=== PATIENT | male | born 1955 | race Hispanic/Latino ===

== ENCOUNTER 2016-08-07 15:25 | Inpatient (IN) | payer MEDICARE ==
[~2016-08-07 15:25] MED LIST: ANCEF/STERILE WATER 2 GM/20 ML 2 GM/20 ML SYRINGE IV ONE; CATHFLO 20 MG in NACL 0.9% 500 ML 500 ML EKOSDLUMEN SCH; HEPARIN/ 0.45% NACL-25,000 UNIT/500 ML 25,000 UNIT/500 ML BAG SHEATH SCH; HEPARIN/NS 5000 UNIT/500ML(CATH LAB) 1,000 ML IR ONE; MORPHINE IV PRN; NACL 0.9% 1000 ML 1,000 ML EKOSCLUMEN SCH; NACL 0.9% 1000 ML 1,000 ML IV SCH; NACL 0.9% 1000 ML 1,000 ML SHEATH SCH; ZOFRAN IV PRN
[2016-08-07 15:51] LABS: Basophils % (Auto) 0.7 % (0.0-1.8); Eosinophils % (Auto) 8.6 % (0.0-4.3); Hemoglobin 13.8 gm/dl (11.8-15.2); Mean Corpuscular HGB Conc 32 % (32-34); Mean Corpuscular Hemoglobin 30 pg (28-32); Mean Corpuscular Volume 94 fl (84-94); Platelet Count 258 K/mm3 (140-440); Red Blood Count 4.57 M/mm3 (3.65-5.03); Red Cell Distribution Width 17.1 % (13.2-15.2); White Blood Count 10.7 K/mm3 (4.5-11.0)
[2016-08-07] MEDS: SUBLIMAZE ONE ×3 (16:00→16:40)
[2016-08-07] MEDS: XYLOCAINE 2% INFILTRATI ONE (16:00)
[2016-08-07] MEDS: VERSED ONE ×3 (16:00→16:40)
[2016-08-07 16:03] LABS: Fibrinogen 290 mg/dl (211-480); INR 1.05 (0.87-1.13)
[2016-08-07] MEDS ORDERED: WATER FOR INJ (PF) 10 ML ONE (16:07)
[2016-08-07 16:17] LABS: Partial Thromboplastin Time < 20.0 Sec. (24.2-36.6)
[2016-08-07] MEDS: CATHFLO ONE ×2 (16:28→16:37)
[2016-08-07] MEDS: HEPARIN 10,000 UNITS/10 ML ONE ×2 (16:28→16:37)
--- NOTE | 2016-08-07 17:03 | Operative Report ---
Operative Report Operative Report: Procedure: 1. Left lower extremity angiography 2. Left SFA to posterior tibial artery EKOS catheter placement. Physician: Stella Zhou MD Date of procedure: 08/07/2016 Indication: This is a 61-year-old male presenting with symptoms of left leg claudication, which had become markedly increased within the last few weeks. Outpatient revascularization was attempted, demonstrating complete occlusion of the mid SFA , with reconstitution in the mid calf via the PT and a tea. During the procedure, a significant amount of clot burden was visualized within the popliteal artery and PTT. As such, the patient was transferred to the hospital for TPA infusion catheter placement. Procedure: The patient was placed in the supine position and prepped and draped in the usual sterile fashion. A timeout was performed. The indwelling Alsey Blazer catheter was removed. Arteriography of the SFA, popliteal artery, tibial peroneal trunk, and posterior tibial artery was performed via the indwelling 6 Colombian sheath. The approximate length of the effected area was measured. A 50 cm EKos catheter was placed in the usual fashion from the SFA to the mid PT. The sheath was the secured to the skin with 2-0 Ethilon. Sterile dressings were placed, and the patient was transported to the critical care unit for infusion. Findings: Limited angiography of the left lower extremity demonstrates occlusion of the mid superficial femoral artery on the left. However, there is now faint opacification of the popliteal artery, which represents an improvement in comparison to images taken earlier today in the outpatient setting. The micro- sonic catheter spans the left SFA to mid PT. The patient will return to the geotechnical laboratory technician tomorrow for further imaging and treatment.
[2016-08-07] MEDS ORDERED: MORPHINE ONE (17:17)
[2016-08-07] MEDS: MORPHINE IV PRN ×2 (17:22→20:53)
[2016-08-07] MEDS ORDERED: NORCO 5/325 ONE (19:31)
[2016-08-07] MEDS: NORCO 5/325 PO PRN (19:37)
[2016-08-07] MEDS: NEURONTIN PO SCH ×2 (19:39→21:59)
[2016-08-07 21:52] LABS: Basophils % (Auto) 0.4 % (0.0-1.8); Eosinophils % (Auto) 5.3 % (0.0-4.3); Hemoglobin 13.8 gm/dl (11.8-15.2); Mean Corpuscular HGB Conc 32 % (32-34); Mean Corpuscular Hemoglobin 30 pg (28-32); Mean Corpuscular Volume 94 fl (84-94); Platelet Count 249 K/mm3 (140-440); Red Blood Count 4.56 M/mm3 (3.65-5.03); Red Cell Distribution Width 17.2 % (13.2-15.2); White Blood Count 14.2 K/mm3 (4.5-11.0)
[2016-08-07 22:05] LABS: Anion Gap 17 mmol/L; BUN/Creatinine Ratio 21.81; Blood Urea Nitrogen 24 mg/dL (9-20); Calcium 8.4 mg/dL (8.4-10.2); Carbon Dioxide 23 mmol/L (22-30); Chloride 103.3 mmol/L (98-107); Glucose 95 mg/dL (75-100); Potassium 4.5 mmol/L (3.6-5.0); Sodium 139 mmol/L (137-145)
[2016-08-07] MEDS: DILAUDID IV PRN (22:25)
[2016-08-08] MEDS ORDERED: NACL 0.9% IR ONE (01:17)
[2016-08-08 05:00] LABS: Anion Gap 14 mmol/L; Blood Urea Nitrogen 22 mg/dL (9-20); Calcium 8.1 mg/dL (8.4-10.2); Carbon Dioxide 22 mmol/L (22-30); Chloride 105.4 mmol/L (98-107); Glucose 122 mg/dL (75-100); Potassium 4.6 mmol/L (3.6-5.0); Sodium 137 mmol/L (137-145)
[2016-08-08] MEDS: DILAUDID IV PRN ×2 (05:09→09:00)
[2016-08-08 05:15] LABS: Basophils % (Auto) 0.6 % (0.0-1.8); Eosinophils % (Auto) 3.1 % (0.0-4.3); Hematocrit 39.8 % (35.5-45.6); Hemoglobin 12.9 gm/dl (11.8-15.2); Mean Corpuscular HGB Conc 32 % (32-34); Mean Corpuscular Hemoglobin 30 pg (28-32); Mean Corpuscular Volume 92 fl (84-94); Platelet Count 187 K/mm3 (140-440); Red Blood Count 4.33 M/mm3 (3.65-5.03); Red Cell Distribution Width 16.8 % (13.2-15.2); White Blood Count 14.8 K/mm3 (4.5-11.0)
[2016-08-08 07:33] LABS: Basophils % (Auto) 0.7 % (0.0-1.8); Hemoglobin 12.1 gm/dl (11.8-15.2); Mean Corpuscular HGB Conc 32 % (32-34); Mean Corpuscular Hemoglobin 30 pg (28-32); Mean Corpuscular Volume 94 fl (84-94); Platelet Count 174 K/mm3 (140-440); Red Blood Count 4.03 M/mm3 (3.65-5.03); Red Cell Distribution Width 17.3 % (13.2-15.2); White Blood Count 15.2 K/mm3 (4.5-11.0)
[2016-08-08 07:42] LABS: Fibrinogen 189 mg/dl (211-480)
--- NOTE | 2016-08-08 08:52 | Admit Criteria Form ---
Admission Criteria Documentation: VASCULAR DISEASE GRG Clinical Indications for Admission to Inpatient Care (Place 'X' for any and all applicable criteria): Hospital admission is needed for appropriate care of the patient because of ANY ONE of the following (1)(2)(3)(4): [ ]I. Life-threatening or limb-threatening skin ulcer as indicated by ANY ONE of the following(5): [ ]a) Surrounding cellulitis unresponsive to outpatient treatment [ ]b) Wet gangrene [ ]c) Lymphangitis [ ]d) Bacteremia [ ]II. Gangrene requiring intensity and frequency of care not manageable to outpatient, emergency, or observation level of care(5) [ ]III. Severe pain requiring acute inpatient management [ ]IV. Interventional revascularization (eg, surgery, thrombolysis) needed (eg , critical limb ischemia)(21) [ ]V. Urgent inpatient IV anticoagulation needed due to ALL of the following: [ ]a) Temporary subtherapeutic anticoagulation unacceptable because of high risk of short-term venous or arterial thromboembolism due to ANY ONE of the following(7)(8)(9): [ ]i) Venous thromboembolism within the past 12 months [ ]ii) Underlying malignancy [ ]iii) Patient with mechanical cardiac valve(10)(11) [ ]iv) Underlying hypercoagulable state (eg, protein C or protein S deficiency, antithrombin deficiency, antiphospholipid antibodies) [ ]v) Patient at high risk of thromboembolism (eg, status post orthopedic surgery, history of recurrent venous thromboembolism) [ ]vi) Atrial fibrillation with rheumatic valvular heart disease [ ]vii) Atrial fibrillation with 3 or MORE of the following : [ ]1) Congestive heart failure [ ]2) Hypertension [ ]3) Age 65 years or older [ ]4) Diabetes mellitus [ ]5) History of thromboembolism (eg, stroke, TIA , or systemic embolization) more than 3 months ago [ ]6) Female gender [ ]b) Contraindications to outpatient use of "bridging" agent or alternative oral anticoagulant as indicated by ALL of the following: [ ]i) Contraindication to outpatient use of low-molecular -weight heparin as "bridging" agent as indicated by ANY ONE of the following(8) : [ ]1) Documented current or history of heparin- induced thrombocytopenia(12) [ ]2) Severe thrombocytopenia (eg, platelet count less than 50,000/mm3 (50 x109/L)) [ ]3) Documented allergy to heparin, low- molecular-weight heparin, or pork products [ ]4) Renal failure (creatinine clearance < 30 mL /min/1.73m2 (0.50 mL/sec/1.73m2) or on dialysis) [ ]5) Inability to manage self-injection (eg, by patient, caregiver, or visiting nurse) [ ]ii) Contraindication to outpatient use of fondaparinux as "bridging" agent as indicated by ANY ONE of the following(13)(14)(15)(16): [ ]1) Severe thrombocytopenia (eg, platelet count less than 50,000/mm3 (50 x109/L)) [ ]2) Hypersensitivity to fondaparinux, related drugs, or product components [ ]3) Renal failure (creatinine clearance less than 30 mL/min/1.73m2 (0.50 mL/sec/1.73m2) or on dialysis) [ ]4) Inability to manage self-injection (eg, by patient, caregiver, or visiting nurse) [ ]iii) Oral direct thrombin inhibitor (eg, dabigatran) or oral coagulation factor Xa inhibitor (eg, rivaroxaban) not appropriate as oral anticoagulation (eg, indication not appropriate) or contraindicated (eg, hypersensitivity, renal failure)(13)(16)(17)(18)(19)(20) [ ]. Suspected severe acute ischemia due to peripheral vascular disease as indicated by ANY ONE of the following(5)(6): [ ]a) Tissue necrosis [ ]b) Severe pain [ ]c) Acute pulselessness [ ]d) Other evidence of acute severe ischemia (eg, lactic acidosis , motor dysfunction) [ ]VII. Acute or newly diagnosed major vessel (eg, aorta) dissection, rupture, or leakage(5)(6)(22)(23) [X ]VIII.Vascular Disease and ALL of the following: [X ]a) Symptom or finding for which emergency and observation care have failed or are not considered appropriate (Use General Criteria: Observation Care as appropriate) [ X]b) Presence of ANY ONE of the following: [X ]i) A General Admission Criteria [ ]ii) A Pediatric General Admission Criteria The original [facility] content created by [facility] has been revised. The portions of the content which have been revised are identified through the use of italic text or in bold, and [facility] has neither reviewed nor approved the modified material. All other unmodified content is copyright [facility]. Please see references footnoted in the original [facility] edition 2016 Admission Criteria Met: Yes
[2016-08-08] MEDS: NEURONTIN PO SCH (09:05)
[2016-08-08] MEDS ORDERED: HEPARIN 10,000 UNITS/10 ML ONE (09:58)
[2016-08-08] MEDS ORDERED: NACL 0.9% 1000 ML 1,000 ML ONE ×2 (09:58→14:11)
[2016-08-08] MEDS ORDERED: HEPARIN/NS 5000 UNIT/500ML(CATH LAB) 500 ML IR ONE ×3 (09:58→14:07)
[2016-08-08] MEDS ORDERED: SUBLIMAZE ONE ×3 (09:59→13:29)
[2016-08-08] MEDS ORDERED: XYLOCAINE 2% INFILTRATI ONE (09:59)
[2016-08-08] MEDS ORDERED: VERSED ONE ×3 (09:59→13:29)
[2016-08-08] MEDS ORDERED: ANCEF/STERILE WATER 2 GM/20 ML 2 GM/20 ML SYRINGE IV ONE (09:59)
[2016-08-08] MEDS: SUBLIMAZE ONE ×4 (10:28→13:54)
[2016-08-08] MEDS: VERSED ONE ×5 (10:28→13:54)
[2016-08-08] MEDS: XYLOCAINE 2% INFILTRATI ONE (10:28)
[2016-08-08] MEDS: HEPARIN 10,000 UNITS/10 ML ONE ×3 (10:53→13:45)
[2016-08-08] MEDS ORDERED: WATER FOR INJ (PF) 20 ML ONE (11:13)
[2016-08-08] MEDS ORDERED: CATHFLO ONE (11:13)
[2016-08-08] MEDS: CATHFLO ONE (11:21)
--- NOTE | 2016-08-08 12:06 | Consultation ---
History of Present Illness Consult date: 08/08/16 Requesting physician: RADHA PETTIT Reason for consult: other (Left SFA occlusion s/p EkOS catheter placement) History of present illness: PULMONARY/CCM CONSULT NOTE (Full dictation # [id number]) Please see dictated notes for full details Medications and Allergies Allergies Allergy/AdvReac Type Severity Reaction Status Date / Time No Known Allergies Allergy Verified 08/07/16 15:25 Home Medications Medication Instructions Recorded Confirmed Last Taken Type Cilostazol [Pletal] 50 mg PO DAILY 08/07/16 08/07/16 08/06/16 History Gabapentin 300 mg PO BID 08/07/16 08/07/16 08/05/16 History 300mg Active Meds: Active Medications Acetaminophen/Hydrocodone Bitart (Colome 5/325) 2 each PO Q6H PRN PRN Reason: Pain, Moderate (4-6) Last Admin: 08/07/16 19:37 Dose: 2 each Gabapentin (Neurontin) 300 mg PO BID MELISSA Last Admin: 08/08/16 09:05 Dose: 300 mg Hydromorphone HCl (Dilaudid) 2 mg IV Q4HR PRN PRN Reason: Pain , Severe (7-10) Last Admin: 08/08/16 09:00 Dose: 2 mg Sodium Chloride (Nacl 0.9% 1000 Ml) 1,000 mls @ 30 mls/hr IV DIRECT MELISSA Sodium Chloride (Nacl 0.9% 1000 Ml) 1,000 mls @ 30 mls/hr SHEATH DIRECT MELISSA Sodium Chloride (Nacl 0.9% 1000 Ml) 1,000 mls @ 35 mls/hr EKOSCLUMEN DIRECT MELISSA Last Admin: 08/07/16 17:13 Dose: 1,000 mls Heparin Sodium/Sodium Chloride (Heparin/ 0.45% Nacl-25,000 Unit/500 Ml) 25,000 unit in 500 mls @ 10 mls/hr SHEATH DIRECT MELISSA; 500 UNITS/HR PRN Reason: Protocol Last Admin: 08/07/16 17:14 Dose: 500 mls Alteplase, Recombinant 20 mg/ (Sodium Chloride) 500 mls @ 25 mls/hr EKOSDLUMEN DIRECT MELISSA Last Admin: 08/07/16 17:13 Dose: 500 mls Sodium Chloride (Nacl 0.9% 1000 Ml) 1,000 mls @ 30 mls/hr IV DIRECT MELISSA Morphine Sulfate (Morphine) 2 mg IV Q4H PRN PRN Reason: Pain, Moderate (4-6) Last Admin: 08/07/16 20:53 Dose: 2 mg Morphine Sulfate (Morphine) 4 mg IV Q4H PRN PRN Reason: Pain , Severe (7-10) Last Admin: 08/08/16 00:43 Dose: 4 mg Ondansetron HCl (Zofran) 4 mg IV Q8H PRN PRN Reason: Nausea And Vomiting Physical Examination Vital signs: Vital Signs Temp Pulse Resp BP Pulse Ox 97.7 F 49 L 14 127/79 97 08/07/16 15:34 08/07/16 15:34 08/07/16 15:34 08/07/16 15:34 08/07/16 15:34 Results - Laboratory Findings CBC and BMP: 08/09/16 11:02 08/09/16 06:51 PT/INR, D-dimer PT 13.6 Sec. (12.2-14.9) 08/07/16 15:34 INR 1.05 (0.87-1.13) 08/07/16 15:34 Abnormal lab findings: Abnormal Labs 08/07/16 08/07/16 08/07/16 15:34 15:34 21:28 WBC RDW 17.1 H Lymph % (Auto) Swisher % (Auto) Eos % (Auto) 8.6 H Swisher # Eos # 0.9 H Seg Neutrophils % Seg Neutrophils # APTT < 20.0 L Fibrinogen Heparin Anti-Xa Level BUN 24 H Glucose Calcium 08/07/16 08/08/16 08/08/16 21:28 04:29 04:29 WBC 14.2 H 14.8 H RDW 17.2 H 16.8 H Lymph % (Auto) 12.3 L 8.5 L Swisher % (Auto) 7.5 H Eos % (Auto) 5.3 H Swisher # 0.9 H 1.1 H Eos # 0.7 H 0.5 H Seg Neutrophils % 75.5 H 80.3 H Seg Neutrophils # 10.7 H 11.9 H APTT Fibrinogen 186 L Heparin Anti-Xa Level 0.10 L BUN Glucose Calcium 08/08/16 08/08/16 08/08/16 04:29 07:16 07:16 WBC 15.2 H RDW 17.3 H Lymph % (Auto) 8.7 L Swisher % (Auto) 8.2 H Eos % (Auto) Swisher # 1.2 H Eos # 0.5 H Seg Neutrophils % 79.4 H Seg Neutrophils # 12.1 H APTT Fibrinogen 189 L Heparin Anti-Xa Level < 0.10 L BUN 22 H Glucose 122 H Calcium 8.1 L
[2016-08-08] MEDS: DILAUDID ONE ×2 (12:40→14:06)
[2016-08-08] MEDS ORDERED: NITROGLYCERIN SYRINGE 3 ML ONE (13:10)
[2016-08-08] MEDS ORDERED: DILAUDID ONE (14:03)
[2016-08-08] MEDS ORDERED: HEPARIN/ 0.45% NACL-25,000 UNIT/500 ML 25,000 UNIT/500 ML BAG ONE (14:24)
[2016-08-08] MEDS ORDERED: HEPARIN/ 0.45% NACL-25,000 UNIT/500 ML 25,000 UNIT/500 ML BAG IV SCH (15:00)
[2016-08-08 17:06] LABS: Hematocrit 31.1 % (35.5-45.6); Hemoglobin 9.8 gm/dl (11.8-15.2)
[2016-08-08] MEDS: NORCO 5/325 PO PRN (17:09)
[2016-08-08 17:16] LABS: INR 1.01 (0.87-1.13)
--- NOTE | 2016-08-08 17:17 | Operative Report ---
Operative Report Operative Report: Procedure: 1. Removal of an Ekos tPA infusion catheter from the left leg. 2. Left superficial femoral arteriography. 3. Left popliteal arteriography. 4. Arteriography of the peroneal, posterior tibial, and anterior tibial arteries of the left leg. 5. Arteriography of the left pedal vessels. 6. Penumbra mechanical thrombectomy of the left posterior tibial and peroneal arteries. 7. Left posterior tibial artery balloon angioplasty. 8. Left peroneal artery balloon angioplasty 9. Intravascular ultrasound Date of procedure: 08/08/2016 Physician: Stella Zhou MD Indication: This is a 61-year-old male who presented with severe claudication last week in the clinic. Revascularization as an outpatient was attempted, but he needed to be urgently transferred to the hospital for Ekos catheter placement. Procedure: The patient was placed in the supine position and prepped and draped in the usual sterile fashion. A timeout was performed. Local anesthetic was administered around the indwelling 6 Sinhala vascular sheath in the right groin. The indwelling EKos catheter was removed. Arteriography via the vascular sheath was performed. The V18 wire and Trailblazer O35 catheter were advanced into the posterior tibial artery and angiography was performed at multiple levels. An additional V18 wire was advanced into the peroneal artery, along with the Trailblazer catheter, and angiography was again performed. Multiple attempts were made to cannulate the anterior tibial artery ostium, but these were unsuccessful. Wires and catheters utilized included an angled 035 Trailblazer, a straight 018 Trailblazer, whisper wire, and V18 wire, amongst others. Over the whisper wire, a 1.7 mm intravascular ultrasound probe was advanced. Intravascular ultrasound of the distal superficial femoral and popliteal arteries was performed. Thereafter, it was requested that a member of the ultrasound staff come to the room and evaluate the patient's distal superficial femoral and popliteal artery with external duplex ultrasound. The decision was then made to perform mechanical/aspiration thrombectomy with a penumbra device in the posterior tibial artery. This was done, and repeat angiography was performed. Balloon angioplasty of the posterior tibial artery was then performed with a 2 mm balloon. The peroneal artery was then accessed with the V 18 and 018 Trailblazer wire. Repeat thrombectomy with the penumbra device and subsequent 2.5 mm balloon angioplasty was performed. Arteriography was performed thereafter. Multiple attempts were again made to cannulate the anterior tibial artery. All wires and catheters were withdrawn. Hemostasis was achieved with an Angio- Seal device. Sterile dressings were applied. The patient was transported to the critical care unit in stable condition. 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 Intraprocedural intravascular and duplex ultrasound findings were suggestive of an underlying popliteal artery aneurysm. As such, a CT angiogram of the left lower extremity will be performed for further evaluation. There is severe occlusion of the anterior tibial artery ostium, most likely due to a combination of acute clot with underlying chronic disease. The remainder of this vessel appears normal. There was extravasation of contrast from distal aspect of the posterior tibial artery, related to prior cannulation. The proximal PT appeared normal, while the distal half was found to have numerous filling defects, representing clot. Although thrombectomy and balloon angioplasty was performed, there was progressive attenuation of the posterior tibial artery lumen, likely due to displacement of incompletely removed distal clot. Filling defects at the ostium of the peroneal artery were resolved after angioplasty and thrombectomy. At the conclusion of the procedure, this vessel appeared normal and provided a single vessel runoff to the distal lower extremity and foot. At the conclusion of the procedure, there was poor visualization of the proximal aspect of the anterior tibial artery, also likely due to new clot burden. There is distal reconstitution of this vessel via peroneal artery collaterals. Plan: I will placed the patient on a heparin drip to attempt to address any residual clot burden. After stabilization, he'll undergo CT angiography of the left lower extremity to further evaluate popliteal artery aneurysm.
[2016-08-08] MEDS ORDERED: BENADRYL IV PRN (17:43)
[2016-08-08] MEDS ORDERED: NARCAN 0.4 MG/1 ML IV PRN (17:43)
[2016-08-08] MEDS ORDERED: DILAUDID PCA 6MG/30ML IV SCH (18:00)
[2016-08-08] MEDS ORDERED: NACL 0.9% 1000 ML 1,000 ML IV SCH (18:00)
--- NOTE | 2016-08-08 23:35 | Anesthesia Consultation ---
Anesthesia Consult and Med Hx Date of service: 08/08/16 - Airway Anesthetic Teeth Evaluation: Caps ROM Head & Neck: Adequate Mental/Hyoid Distance: Adequate Mallampati Class: Class II Intubation Access Assessment: Good - Pulmonary Exam CTA: Yes - Cardiac Exam Cardiac Exam: RRR - Pre-Operative Health Status ASA Pre-Surgery Classification: ASA3 Proposed Anesthetic Plan: General - Pulmonary Hx Smoking: Yes Hx Asthma: No COPD: Yes Hx Pneumonia: No - Cardiovascular System Hx Hypertension: Yes Hx Peripheral Vascular Disease: Yes - Central Nervous System Hx Psychiatric Problems: No - Endocrine Hx End Stage Renal Disease: No - Other Systems Hx Cancer: No
--- NOTE | 2016-08-08 23:35 | Anesthesia Day of Surgery ---
Anesthesia Day of Surgery - Day of Surgery Patient Examined: Yes Patient H&P Reviewed: Yes Patient is NPO: Yes
[2016-08-08] MEDS ORDERED: AMIDATE IV ONE (23:43)
[2016-08-09] MEDS ORDERED: HEPARIN 10,000 UNITS/10 ML 2,000 UNIT in NACL 0.9% 500 ML 500 ML IR ONE (00:22)
[2016-08-09] MEDS ORDERED: HEPARIN 10,000 UNITS/10 ML ONE (00:23)
[2016-08-09] MEDS ORDERED: NACL 0.9% 500 ML 500 ML ONE (00:23)
[2016-08-09] MEDS ORDERED: PROTAMINE SULFATE ONE (00:23)
[2016-08-09] MEDS ORDERED: MARCAINE 0.5% 0 ML INFILTRATI ONE (00:24)
[2016-08-09] MEDS ORDERED: NITROGLYCERIN SYRINGE 0 ML ONE (00:24)
[2016-08-09] MEDS ORDERED: NACL 0.9% 500 ML 500 ML IV ONE (00:56)
[2016-08-09] MEDS ORDERED: ePHEDrine SULFATE ONE (01:30)
[2016-08-09] MEDS ORDERED: NACL 0.9% 1000 ML 1,000 ML ONE ×2 (01:38→02:41)
[2016-08-09] MEDS ORDERED: LACTATED RINGERS 1,000 ML ONE (01:38)
[2016-08-09] MEDS ORDERED: XYLOCAINE MPF 2% ONE (01:38)
[2016-08-09] MEDS ORDERED: ANCEF ONE (01:38)
[2016-08-09] MEDS ORDERED: DECADRON ONE (01:39)
[2016-08-09] MEDS ORDERED: HEPARIN ONE (02:00)
[2016-08-09] MEDS ORDERED: NEO SYNEPHRINE/NS Syringe(OR USE) IV ONE (02:00)
[2016-08-09] MEDS ORDERED: ZOFRAN ONE (02:00)
[2016-08-09] MEDS ORDERED: MORPHINE IV PRN ×2 (03:05)
[2016-08-09] MEDS ORDERED: NARCAN 0.4 MG/1 ML IV PRN (03:05)
[2016-08-09] MEDS ORDERED: ZOFRAN IV PRN (03:05)
--- NOTE | 2016-08-09 03:05 | Post Operative Note ---
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 Partial thrombosis of the popliteal artery. Successful repair of popliteal artery aneurysm with femoropopliteal bypass and ligation of the popliteal artery above and below the knee. Multiphasic Doppler signal in the proximal anterior tibial artery. Procedure: 1. Left Lower Extremity 4 Compartment Fasciotomy 2. Open Thrombectomy of Anterior Tibial Artery with 3 Demarco 3. Repair of Left Popliteal Artery Aneurysm With Femoropopliteal Bypass With Reverse Left Greater Saphenous Vein Graft And Ligation of the Popliteal Artery Anesthesia: [facility] Surgeon: KAUSHIK RUBI Estimated blood loss: other (400 mL) Pathology: none Condition: stable Disposition: PACU
[2016-08-09] MEDS ORDERED: DILAUDID ONE ×2 (03:15→03:33)
[2016-08-09] MEDS: HEPARIN/ 0.45% NACL-25,000 UNIT/500 ML 25,000 UNIT/500 ML BAG IV SCH ×3 (03:20→17:32)
[2016-08-09] MEDS: DILAUDID IV PRN ×3 (03:30→07:10)
[2016-08-09] MEDS ORDERED: NACL 0.9% 1000 ML 1,000 ML IV SCH ×2 (04:00→10:00)
[2016-08-09 05:53] LABS: BUN/Creatinine Ratio 23.33; Blood Urea Nitrogen 28 mg/dL (9-20); Calcium 6.9 mg/dL (8.4-10.2); Carbon Dioxide 14 mmol/L (22-30); Chloride 109.2 mmol/L (98-107); Glucose 113 mg/dL (75-100); Sodium 135 mmol/L (137-145)
[2016-08-09 05:56] LABS: Anion Gap 18 mmol/L; Potassium 6.2 mmol/L (3.6-5.0)
[2016-08-09 07:38] LABS: Anion Gap 15 mmol/L; BUN/Creatinine Ratio 23.33; Blood Urea Nitrogen 28 mg/dL (9-20); Calcium 7.1 mg/dL (8.4-10.2); Carbon Dioxide 18 mmol/L (22-30); Chloride 107.5 mmol/L (98-107); Glucose 129 mg/dL (75-100); Potassium 5.1 mmol/L (3.6-5.0); Sodium 135 mmol/L (137-145)
--- NOTE | 2016-08-09 09:24 | Progress Note ---
Assessment and Plan 61 year old male with left lower extremity threatened limb status post endovascular reconstruction, open bypass around the popliteal aneurysm, and sunitha thrombectomy with fasciotomies. Change PRN dilaudid to [employer] dilaudid. Will continue to monitor. Viable limb. Inicisional pain. HGB 7.2 ; cardiac history. 2 unit pRBC ordered. Consulted cardiology due to cardiac history with emergent revascularization for acute limb ischemia. Subjective Date of service: 08/09/16 Principal diagnosis: LLE ischemia Interval history: Interval fasciotomy and bypass with thrombectomy. Had dilaudid at 7 am, had significant pain at 8 am. Likely due to pain medication wearing off. Had numbness of the left foot for aprox 5 weeks. Can move toes. Has difficulty flexing and extending knee due to incisional pain. Has some left foot pain. Has some discomfort along the left posterolateral thigh, but this is not the cause. Strongly dopplerable left DP. Large area of ecchymosis on the left foot near the PT sheath site with extension across the foot. Objective - Constitutional Vitals: Vital Signs - 12hr 08/08/16 08/08/16 08/08/16 21:30 21:45 22:00 Temperature Pulse Rate 104 H 104 H 76 Pulse Rate [ 100 H From Monitor] Respiratory 11 L 13 24 Rate Respiratory 15 Rate [Left Leg] Blood Pressure 109/64 96/49 91/64 O2 Sat by Pulse 98 100 98 Oximetry 08/08/16 08/08/16 08/08/16 22:15 22:30 22:40 Temperature Pulse Rate 100 H 103 H 102 H Pulse Rate [ From Monitor] Respiratory 12 12 10 L Rate Respiratory Rate [Left Leg] Blood Pressure 95/65 93/63 93/63 O2 Sat by Pulse 100 100 99 Oximetry 08/08/16 08/08/16 08/08/16 22:45 23:00 23:16 Temperature Pulse Rate 99 H 98 H 107 H Pulse Rate [ From Monitor] Respiratory 9 L 9 L 15 Rate Respiratory Rate [Left Leg] Blood Pressure 99/62 90/57 90/57 O2 Sat by Pulse 100 100 99 Oximetry 08/08/16 08/08/16 08/09/16 23:30 23:36 00:00 Temperature 97.8 F Pulse Rate 93 H Pulse Rate [ 102 H From Monitor] Respiratory 10 L Rate Respiratory Rate [Left Leg] Blood Pressure 89/59 O2 Sat by Pulse 100 96 Oximetry 08/09/16 08/09/16 08/09/16 03:14 03:20 03:25 Temperature 97.4 F L Pulse Rate 91 H 90 89 Pulse Rate [ From Monitor] Respiratory 14 14 16 Rate Respiratory Rate [Left Leg] Blood Pressure 110/80 117/75 127/78 O2 Sat by Pulse 100 100 99 Oximetry 08/09/16 08/09/16 08/09/16 03:30 03:45 03:50 Temperature 97.3 F L Pulse Rate 90 89 83 Pulse Rate [ From Monitor] Respiratory 16 16 14 Rate Respiratory Rate [Left Leg] Blood Pressure 106/70 109/76 117/75 O2 Sat by Pulse 98 100 100 Oximetry 08/09/16 08/09/16 08/09/16 03:58 04:00 04:16 Temperature 97.7 F Pulse Rate 81 81 78 Pulse Rate [ From Monitor] Respiratory 11 L 7 L 8 L Rate Respiratory Rate [Left Leg] Blood Pressure 89/59 112/68 119/70 O2 Sat by Pulse Oximetry 08/09/16 08/09/16 08/09/16 04:30 04:46 05:00 Temperature Pulse Rate 82 82 78 Pulse Rate [ From Monitor] Respiratory 11 L 9 L 9 L Rate Respiratory Rate [Left Leg] Blood Pressure 127/76 118/75 111/72 O2 Sat by Pulse 100 100 100 Oximetry 08/09/16 08/09/16 08/09/16 05:16 05:30 05:46 Temperature Pulse Rate 77 75 83 Pulse Rate [ From Monitor] Respiratory 12 9 L 7 L Rate Respiratory Rate [Left Leg] Blood Pressure 107/75 107/65 104/64 O2 Sat by Pulse 100 98 100 Oximetry 08/09/16 08/09/16 08/09/16 06:00 06:16 07:10 Temperature Pulse Rate 88 84 Pulse Rate [ From Monitor] Respiratory 7 L 11 L 13 Rate Respiratory Rate [Left Leg] Blood Pressure 105/63 110/66 O2 Sat by Pulse 100 100 Oximetry General appearance: Present: no acute distress - EENT Eyes: EOM intact ENT: hearing intact - Respiratory Respiratory effort: normal Extremities: abnormal (see subjective) - Psychiatric Psychiatric: appropriate mood/affect, cooperative - Labs CBC & Chem 7: 08/09/16 11:02 08/09/16 06:51 Labs: Abnormal lab results 08/07/16 08/08/16 08/08/16 Range/Units 15:34 16:49 16:49 Hgb 9.8 L (11.8-15.2) gm/dl Hct 31.1 L D (35.5-45.6) % APTT 94.0 H* (24.2-36.6) Sec. Sodium (137-145) mmol/L Potassium (3.6-5.0) mmol/L Chloride (98-107) mmol/L Carbon Dioxide (22-30) mmol/L BUN (9-20) mg/dL Glucose (75-100) mg/dL Calcium (8.4-10.2) mg/dL Crossmatch See Detail 08/09/16 08/09/16 Range/Units 04:46 06:51 Hgb (11.8-15.2) gm/dl Hct (35.5-45.6) % APTT (24.2-36.6) Sec. Sodium 135 L 135 L (137-145) mmol/L Potassium 6.2 H* D 5.1 H (3.6-5.0) mmol/L Chloride 109.2 H 107.5 H (98-107) mmol/L Carbon Dioxide 14 L D 18 L (22-30) mmol/L BUN 28 H 28 H (9-20) mg/dL Glucose 113 H 129 H (75-100) mg/dL Calcium 6.9 L 7.1 L (8.4-10.2) mg/dL Crossmatch
[2016-08-09] MEDS ORDERED: DILAUDID PCA 6MG/30ML IV SCH (10:00)
[2016-08-09] MEDS: ANCEF/NS 1 GM/50 ML 1 GM/50 ML BAG IV SCH ×2 (10:09→18:17)
[2016-08-09] MEDS: PLAVIX PO SCH (10:10)
[2016-08-09] MEDS: NEURONTIN PO SCH ×3 (10:10→22:25)
[2016-08-09] MEDS: TORADOL IV SCH ×4 (10:11→22:50)
[2016-08-09 11:11] LABS: Hematocrit 22.4 % (35.5-45.6); Hemoglobin 7.2 gm/dl (11.8-15.2)
[2016-08-09] MEDS ORDERED: NACL 0.9% 500 ML 500 ML IV NR ×2 (11:30→12:51)
--- NOTE | 2016-08-09 12:42 | Progress Note ---
Assessment and Plan - Patient Problems (1) Peripheral vascular disease Current Visit: Yes Status: Acute Plan to address problem: - continue antiplatelet therapy - s/p EkOS catheter removal - follow H&H - per vascular team otherwise (2) Tobacco use disorder Current Visit: Yes Status: Acute Plan to address problem: - abstinence counselled - nicotine patch ordered (3) H/O fasciotomy Current Visit: Yes Status: Acute Plan to address problem: - dressings lookd clean and dry - s/p left leg fasciotomies - good pedal pulse and warmth (4) Anemia due to acute blood loss Current Visit: Yes Status: Acute Plan to address problem: - receiving blood transfusions now - follow H&H - follow clinically Subjective Date of service: 08/09/16 Principal diagnosis: LLE ischemia Interval history: Seen and examined at bedside; 24 hour events reviewed; nursing and respiratory care staff consulted; no adverse overnight events reported to me; resting in bed ; now s/p fasciotomies of the left lower extremity; also repair of popliteal artery aneurysm; no N/V/F/C Objective Vital Signs - 12hr 08/09/16 08/09/16 08/09/16 03:14 03:20 03:25 Temperature 97.4 F L Pulse Rate 91 H 90 89 Pulse Rate [ 91 H From Monitor] Respiratory 14 11 L 16 Rate Blood Pressure 110/80 117/75 127/78 O2 Sat by Pulse 100 95 99 Oximetry 08/09/16 08/09/16 08/09/16 03:30 03:45 03:50 Temperature 97.3 F L Pulse Rate 90 89 83 Pulse Rate [ From Monitor] Respiratory 16 16 14 Rate Blood Pressure 106/70 109/76 117/75 O2 Sat by Pulse 98 100 100 Oximetry 08/09/16 08/09/16 08/09/16 03:58 04:00 04:16 Temperature 97.7 F Pulse Rate 81 81 78 Pulse Rate [ From Monitor] Respiratory 11 L 7 L 8 L Rate Blood Pressure 89/59 112/68 119/70 O2 Sat by Pulse Oximetry 08/09/16 08/09/16 08/09/16 04:30 04:46 05:00 Temperature Pulse Rate 82 82 78 Pulse Rate [ From Monitor] Respiratory 11 L 9 L 9 L Rate Blood Pressure 127/76 118/75 111/72 O2 Sat by Pulse 100 100 92 Oximetry 08/09/16 08/09/16 08/09/16 05:16 05:30 05:46 Temperature Pulse Rate 77 75 83 Pulse Rate [ From Monitor] Respiratory 12 9 L 7 L Rate Blood Pressure 107/75 107/65 104/64 O2 Sat by Pulse 100 98 100 Oximetry 08/09/16 08/09/16 08/09/16 06:00 06:16 06:30 Temperature Pulse Rate 88 84 81 Pulse Rate [ From Monitor] Respiratory 12 11 L 8 L Rate Blood Pressure 105/63 110/66 115/65 O2 Sat by Pulse 94 100 100 Oximetry 08/09/16 08/09/16 08/09/16 06:46 07:00 07:10 Temperature Pulse Rate 82 82 Pulse Rate [ From Monitor] Respiratory 11 L 12 13 Rate Blood Pressure 122/74 108/72 O2 Sat by Pulse 91 100 Oximetry 08/09/16 08/09/16 08/09/16 07:16 07:30 07:46 Temperature Pulse Rate 90 82 82 Pulse Rate [ 82 From Monitor] Respiratory 9 L 11 L 9 L Rate Blood Pressure 100/60 95/56 96/60 O2 Sat by Pulse 100 100 100 Oximetry 08/09/16 08/09/16 08/09/16 08:00 08:16 08:30 Temperature 97.7 F Pulse Rate 94 H 91 H 89 Pulse Rate [ From Monitor] Respiratory 13 10 L 11 L Rate Blood Pressure 98/63 96/58 92/59 O2 Sat by Pulse 100 100 99 Oximetry 08/09/16 08/09/16 08/09/16 08:46 09:00 09:16 Temperature Pulse Rate 85 89 87 Pulse Rate [ From Monitor] Respiratory 11 L 10 L 13 Rate Blood Pressure 94/57 111/57 113/84 O2 Sat by Pulse 100 99 100 Oximetry 08/09/16 08/09/16 08/09/16 09:30 09:46 10:00 Temperature Pulse Rate 85 78 78 Pulse Rate [ From Monitor] Respiratory 12 9 L 9 L Rate Blood Pressure 103/57 90/56 94/53 O2 Sat by Pulse 97 100 100 Oximetry 08/09/16 08/09/16 08/09/16 10:16 10:30 11:39 Temperature Pulse Rate 87 79 Pulse Rate [ From Monitor] Respiratory 9 L 7 L Rate Blood Pressure 99/59 105/57 O2 Sat by Pulse 100 100 100 Oximetry Constitutional: no acute distress, alert Eyes: non-icteric ENT: oropharynx moist Neck: supple, no lymphadenopathy Effort: normal Ascultation: Bilateral: clear, diminished breath sounds Cardiovascular: regular rate and rhythm Gastrointestinal: normoactive bowel sounds, soft, non-tender, non-distended Integumentary: normal Extremities: no cyanosis, pink and warm, no ischemia or petechiae, edema (left lower extremity) Neurologic: normal mental status, non-focal exam, pupils equal and round, motor strength normal and Psychiatric: mood appropriate, affect normal CBC and BMP: 08/09/16 11:02 08/09/16 06:51 ABG, PT/INR, D-dimer: PT/INR, D-dimer PT 13.2 Sec. (12.2-14.9) 08/08/16 16:49 INR 1.01 (0.87-1.13) 08/08/16 16:49 Abnormal lab findings: Abnormal Labs 08/07/16 08/07/16 08/07/16 15:34 15:34 15:34 WBC Hgb Hct RDW 17.1 H Lymph % (Auto) [place] % (Auto) Eos % (Auto) 8.6 H [place] # Eos # 0.9 H Seg Neutrophils % Seg Neutrophils # APTT < 20.0 L Fibrinogen Heparin Anti-Xa Level Sodium Potassium Chloride Carbon Dioxide BUN Glucose Calcium Crossmatch See Detail 08/07/16 08/07/16 08/08/16 21:28 21:28 04:29 WBC 14.2 H 14.8 H Hgb Hct RDW 17.2 H 16.8 H Lymph % (Auto) 12.3 L 8.5 L [place] % (Auto) 7.5 H Eos % (Auto) 5.3 H [place] # 0.9 H 1.1 H Eos # 0.7 H 0.5 H Seg Neutrophils % 75.5 H 80.3 H Seg Neutrophils # 10.7 H 11.9 H APTT Fibrinogen Heparin Anti-Xa Level Sodium Potassium Chloride Carbon Dioxide BUN 24 H Glucose Calcium Crossmatch 08/08/16 08/08/16 08/08/16 04:29 04:29 07:16 WBC 15.2 H Hgb Hct RDW 17.3 H Lymph % (Auto) 8.7 L [place] % (Auto) 8.2 H Eos % (Auto) [place] # 1.2 H Eos # 0.5 H Seg Neutrophils % 79.4 H Seg Neutrophils # 12.1 H APTT Fibrinogen 186 L Heparin Anti-Xa Level 0.10 L Sodium Potassium Chloride Carbon Dioxide BUN 22 H Glucose 122 H Calcium 8.1 L Crossmatch 08/08/16 08/08/16 08/08/16 07:16 16:49 16:49 WBC Hgb 9.8 L Hct 31.1 L D RDW Lymph % (Auto) [place] % (Auto) Eos % (Auto) [place] # Eos # Seg Neutrophils % Seg Neutrophils # APTT 94.0 H* Fibrinogen 189 L Heparin Anti-Xa Level < 0.10 L Sodium Potassium Chloride Carbon Dioxide BUN Glucose Calcium Crossmatch 08/09/16 08/09/16 08/09/16 04:46 06:51 11:02 WBC Hgb 7.2 L Hct 22.4 L D RDW Lymph % (Auto) [place] % (Auto) Eos % (Auto) [place] # Eos # Seg Neutrophils % Seg Neutrophils # APTT Fibrinogen Heparin Anti-Xa Level Sodium 135 L 135 L Potassium 6.2 H* D 5.1 H Chloride 109.2 H 107.5 H Carbon Dioxide 14 L D 18 L BUN 28 H 28 H Glucose 113 H 129 H Calcium 6.9 L 7.1 L Crossmatch Chest x-ray: image reviewed
--- NOTE | 2016-08-09 15:10 | Consultation ---
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 Surgery was done yesterday and the patient was admitted to the CCU for post operative management. Cardiac consultation was requested for further cardiac follow-up for physical history of coronary artery disease. The patient denies chest pain or shortness of breath or palpitations. There is no lower extremity edema. Cardiac status is asymptomatic. Most pertinent finding on his laboratory exam is severe anemia. His hematocrit on his presentation prior to surgery was 43, and postoperatively is now a hematocrit of 22. On his court monitor, he has been in a stable sinus rhythm and narrow QRS complexes. In the absence of a 12-lead EKG, we have requested one which is pending. The patient has a history of chronic tobacco abuse and coronary artery disease. 5 years ago in 2011, a cardiac catheterization was done at [facility] in [place], which demonstrated small vessel disease, and mild nonobstructive disease of the large caliber vessels. At that time he was treated with medical therapy and risk factor modification. He states that he has not followed up with his stores naval on a regular basis, and no pre-cardiac assessment was done before his current popliteal surgery. Past History Past Medical History: CAD, hypertension, PVD, other (tobacco abuse) Medications and Allergies Allergies Allergy/AdvReac Type Severity Reaction Status Date / Time No Known Allergies Allergy Verified 08/07/16 15:25 Home Medications Medication Instructions Recorded Confirmed Last Taken Type Cilostazol [Pletal] 50 mg PO DAILY 08/07/16 08/07/16 08/06/16 History Gabapentin 300 mg PO BID 08/07/16 08/07/16 08/05/16 History 300mg Active Meds: Active Medications Acetaminophen/Hydrocodone Bitart ([employer] 5/325) 2 each PO Q6H PRN PRN Reason: Pain, Moderate (4-6) Last Admin: 08/08/16 17:09 Dose: 2 each Clopidogrel Bisulfate (Plavix) 75 mg PO QDAY MELISSA Last Admin: 08/09/16 10:10 Dose: 75 mg Diphenhydramine HCl (Benadryl) 25 mg IV Q4H PRN PRN Reason: Itching Famotidine (Pepcid) 20 mg PO BID [facility] Gabapentin (Neurontin) 300 mg PO BID [facility] Last Admin: 08/09/16 10:10 Dose: 300 mg Hydromorphone/Sodium Chloride (Dilaudid Director Of [employer] 6mg/30ml) 0 mg IV DIRECT MEILSSA PRN Reason: Protocol Last Admin: 08/09/16 10:08 Dose: 1 cartstart Cefazolin Sodium (Ancef/Ns 1 Gm/50 Ml) 1 gm in 50 mls @ 100 mls/hr IV Q8H MELISSA Stop: 08/09/16 18:29 Last Admin: 08/09/16 10:09 Dose: 100 mls/hr Heparin Sodium/Sodium Chloride (Heparin/ 0.45% Nacl-25,000 Unit/500 Ml) 25,000 unit in 500 mls @ 21 mls/hr IV TITR MELISSA; 1,050 UNITS/HR PRN Reason: Protocol Last Admin: 08/09/16 12:30 Dose: 1,050 units/hr, 21 mls/hr Sodium Chloride (Nacl 0.9% 500 Ml) 500 mls @ 0 mls/hr IV ONCE NR PRN Reason: As Directed Stop: 08/09/16 23:59 Ketorolac Tromethamine (Toradol) 30 mg IV Q6H [facility] Stop: 08/12/16 03:59 Last Admin: 08/09/16 10:11 Dose: 30 mg Naloxone HCl (Narcan 0.4 Mg/1 Ml) 0.1 mg IV Q2MIN PRN PRN Reason: Res Rate </= 8 or 02 SAT < 92% Ondansetron HCl (Zofran) 4 mg IV Q8H PRN PRN Reason: Nausea And Vomiting Review of Systems Cardiovascular: no chest pain, no orthopnea, no palpitations, no rapid/ irregular heart beat, no edema, no syncope, no lightheadedness, no shortness of breath Physical Examination Vital Signs Temp Pulse Resp BP Pulse Ox 97.7 F 49 L 14 127/79 97 08/07/16 15:34 08/07/16 15:34 08/07/16 15:34 08/07/16 15:34 08/07/16 15:34 General appearance: no acute distress HEENT: Positive: PERRL Cardiac: Positive: Reg Rate and Rhythm Lungs: Positive: Decreased Breath Sounds Neuro: Positive: Grossly Intact Abdomen: Positive: Soft Male genitourinary: Positive: deferred Skin: Positive: Clear Extremities: Absent: edema Results 08/09/16 11:02 08/09/16 06:51 Coagulation 08/08/16 Range/Units 16:49 PT 13.2 (12.2-14.9) Sec. INR 1.01 (0.87-1.13) APTT 94.0 H* (24.2-36.6) Sec. CBC 08/08/16 08/09/16 Range/Units 16:49 11:02 Hgb 9.8 L 7.2 L (11.8-15.2) gm/dl Hct 31.1 L D 22.4 L D (35.5-45.6) % Plt Count 170 (140-440) K/mm3 Comprehensive Metabolic Panel 08/09/16 08/09/16 Range/Units 04:46 06:51 Sodium 135 L 135 L (137-145) mmol/L Potassium 6.2 H* D 5.1 H (3.6-5.0) mmol/L Chloride 109.2 H 107.5 H (98-107) mmol/L Carbon Dioxide 14 L D 18 L (22-30) mmol/L BUN 28 H 28 H (9-20) mg/dL Creatinine 1.2 1.2 (0.8-1.5) mg/dL Glucose 113 H 129 H (75-100) mg/dL Calcium 6.9 L 7.1 L (8.4-10.2) mg/dL EKG interpretations - Telemetry EKG Rhythm: Sinus Rhythm Assessment and Plan - Patient Problems (1) Post-operative state Current Visit: Yes Status: Acute Plan to address problem: Continued postoperative supportive therapies, particularly further evaluation and management of the severe anemia. (2) Coronary disease Current Visit: Yes Status: Acute Qualifiers: Coronary Disease-Associated Artery/Lesion type: C [place] vs. transplanted heart: N Associated angina: A
[2016-08-09] MEDS: PEPCID PO SCH ×2 (16:28→22:35)
--- NOTE | 2016-08-09 16:39 | Operative Report ---
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 Left Lower Extremity 4 Compartment Fasciotomy 2. Open Thrombectomy of Anterior Tibial Artery with 3 Demarco 3. Repair of Left Popliteal Artery Aneurysm With Femoropopliteal Bypass With Reverse Left Greater Saphenous Vein Graft And Ligation of the Popliteal Artery Surgeon: Ponce Gipson M.D. Cloth Beamer: None Anesthesia: Gen. endotracheal anesthesia EBL: 400 mL Counts: Correct Complications: None Condition: Stable Findings: Bulging of the muscle in all compartments however all tissue appeared healthy and viable. Partial thrombosis of the popliteal artery. Successful repair of popliteal artery aneurysm with femoropopliteal bypass and ligation of the popliteal artery above and below the knee. Multiphasic Doppler signal in the proximal anterior tibial artery. Procedure: Specimen: None Indication: Patient is a 61-year-old man with a history of a thrombosed left artery aneurysm that was lysed open. She shortly after his procedure he developed pain in the foot with decreased motor and sensation. On evaluation it was felt that he had compartment syndrome requiring emergent operative intervention. He was given the risks, benefits, and alternative procedures and consented to procedure. Description of Procedure: The patient was brought into the operating room and laid in supine position. After general endotracheal anesthesia was achieved his left leg was prepped and draped in fashion. A longitudinal incision was greater on the medial aspect of the calf extending from just distal to the knee to just proximal to the ankle. Both the superficial and deep posterior compartments were opened. Distally I evaluated the popliteal artery which had a very weak pulse and appeared to have partial thrombosis secondary to compartment syndrome. At this point I decided that the patient will require a bypass to restore flow to the foot in addition to the 4 compartment fasciotomy. I then made a longitudinal incision on the lateral aspect of the leg and this extended from just below the knee to just proximal to the ankle and I opened the fascia of both the anterior and lateral compartment. Of note the muscle in all 4 compartments bulged but appeared healthy without any evidence of ischemia. I then made a longitudinal incision extending from the groin to the distal thigh, centered over the greater saphenous vein. I dissected down to the saphenous vein using sharp dissection and dissected the vein circumferentially and then suture ligated and divided all side branches. I ligated and divided the vein both proximal and distally and then passed this off the field and placed in heparinized saline as I was ready to use the vein. I dissected through the distal incision down to the distal superficial femoral artery. I dissected down to the artery the distal superficial femoral artery was of normal caliber however the patient had an obvious aneurysm of the popliteal artery. I dissected the superficial femoral artery circumferentially and controlled both proximal and distal to the planned area of anastomosis with vessels. I then returned to the popliteal artery and dissected out the popliteal artery as well as the tibioperoneal trunk and the anterior tibial artery and total with vessels loops. I then prepped the vein on the back table by dilating it with heparinized saline and oversewing areas of leak with 6-0 Prolene. Once I ensure that they vein graft was hemostatic and reversed it and then using [place] tunnel and pass it from the SFA to the below-knee popliteal artery and anatomic tunnel. At this point I then systemically heparinized the patient with 5000 units heparin IV. I then clipped SFA and created an arteriotomy using an 11 blade and Strickland scissors and then created an end-to-side anastomosis between the vein and the artery using 2 6-0 Prolene in running fashion. I then turned my attention to the popliteal artery. I clamped the popliteal artery as well as the anterior tibial artery and tibioperoneal trunk and then created an arteriotomy in the popliteal artery using 11 blade and Strickland scissors. Last the tibioperoneal trunk which had excellent backbleeding however there was not any backbleeding from anterior tibial artery. I made attempts to pass a 2 Demarco without success and then was unable to pass a 3 Demarco. I advanced a hemostat the arteriotomy into the anterior tibial artery and could feel a significant amount of calcified plaque at the origin. I was able to remove this from the origin with the hemostat and then passed 3 Demarco down the anterior tibial artery and given the distance of the Demarco most likely pass into the dorsalis pedis artery. I pulled the Demarco back and it was significant amount of debris retrieved from the artery. Several more passes until there was no further debris and flushed with heparin saline. I then created an end-to-side anastomosis using 2 6-0 Prolenes in running fashion. Prior to completing the anastomosis I did flush the graft as well as the popliteal artery and then completed the anastomosis and removed all clamps allowing flow into the graft which had an excellent pulse. There was a multiphasic Doppler signal in the anterior tibial artery just distal to the anastomosis. I then ligated the popliteal artery just distal to the SFA anastomosis and just proximal to the popliteal anastomosis using a 0 silk. I used a combination of direct pressure, cautery, and quick clot to achieve hemostasis within the wounds. Once hemostasis was achieved the thigh wound was closed in 2 layers using a 3-0 Vicryl running fashion the deep dermal layer and ness for the skin. I was able to partially close the skin of the medial calf incision using ness. I then dressed the fasciotomy sites using Xeroform gauze, fluffs, ABDs past, loosely rolled Kerlix, and a six-inch Sudeep bandage. The patient tolerated the procedure well. All sponge, needle, and history counts were correct. The patient was taken to the recovery area in stable condition.
[2016-08-10] MEDS ORDERED: NACL 0.9% 1000 ML 1,000 ML ONE (00:59)
[2016-08-10] MEDS: TORADOL IV SCH ×3 (04:00→16:49)
--- NOTE | 2016-08-10 06:14 | Consultation ---
CONSULTING PHYSICIAN: Dr. Miller. REASON FOR CONSULTATION: Status post bypass for acute ____ ischemia. The patient on EKOS catheter, need for ICU observation. CHIEF COMPLAINT AND HISTORY OF PRESENTING ILLNESS: The patient is a 61-year-old male who really denied any prior incidence of this type. He said, he was talking with a friend in the yard about 2 weeks ago suddenly he had left calf pain and worsened with exertion. He went to Emergency Room to be evaluated amongst other things they did Dopplers and he was told that he did not have any clots. It was treated as a cramp and so he went home. He had not been able to get into the hospital or his primary care, ultimately he went into the vascular surgeon's office and the plan was done for outpatient revascularization; however, it demonstrated complete occlusion of the mid SFA with reconstitution in the mid calf. He was transferred to the hospital for TPA infusion catheter placement that was done successfully and was brought into the Intensive Care Unit thereafter and I stopped by to see him, he was resting peacefully. Denied any acute chest pain. Denied any cough or expectoration. He does have about 15+ pack year tobacco smoking history. Continues to smoke. About 1/2 a pack a day. That really is as much of the history of presentation as I have. PAST MEDICAL HISTORY: COPD and I guess atherosclerotic vascular disease. PAST SURGICAL HISTORY: Had denied any at that time. MEDICATIONS: He was on at the time of my evaluation included the following: [place] 5/325 p.o. q.6h. p.r.n. He was on Benadryl 25 mg IV q.4h. p.r.n. itching, Neurontin 300 mg p.o. b.i.d., Zofran 4 mg IV q. 8 hours p.r.n. nausea and vomiting. ALLERGIES: No known drug allergies. DIET: Well-built gentleman. Denies acute weight loss or gain preceding few weeks to months. FAMILY AND SOCIAL HISTORY: Lives in the community. He has about a 15+ pack year tobacco smoking history. Denied alcohol or illicit drug use or abuse. REVIEW OF SYSTEMS: No loss of consciousness. No new onset seizures. No new onset focal weakness. He had the left leg pain, no gross hematochezia or melena. No gross hematuria or dysuria. No hematemesis. No hemoptysis. No palpitations. Complete review of systems obtained. Pertinent positives and/or negatives as in body of the history above, otherwise they are noncontributory. PHYSICAL EXAMINATION: VITAL SIGNS: On presentation, he was afebrile, temperature 97.7, pulse was 49, respiratory rate was 14, blood pressure 127/79, oxygen sats were 97%, inspired oxygen concentration was not recorded. HEAD, EYES, EARS, NOSE AND THROAT: Pupils are equal, round, about 3 mm, reactive to light. Extraocular muscle movements are intact. Oropharynx is a Mallampati #2 oropharynx. No significant posterior oropharyngeal erythema. Grossly, no palpable lymph nodes in the supraclavicular or submandibular lymph node chains. LUNGS: Auscultation of both lung tapia was unremarkable. Lungs were clear bilaterally, slightly diminished bilateral breath sounds, no wheezing. HEART: Sounds 1 and 2 were heard. They were regular in rate and rhythm at the time of my evaluation. ABDOMEN: Soft. Bowel sounds are positive. Did not appear tender. EXTREMITIES: Without overt digital clubbing or cyanosis. Both feet were warm. The right lower extremity a little bit without significant hair in the mid calf to mchugh downwards; however, good pedal pulses felt on the right. Left lower extremity was warm, difficult to feel pulses there. Mild 1+ edema. NEUROLOGIC: Grossly nonfocal. LABORATORY DATA: From my review are as follows: White cell count on presentation was 10,700 with a hemoglobin of 13.8, hematocrit of 43.0, platelets 258. INR was 1.05. Fibrinogen within normal limits. Serum sodium was 139, potassium 4.5, chloride 103, bicarbonate 23, BUN 24, creatinine 1.1 and glucose of 95. Postprocedure hemoglobin was I believe 9.8. I do not have radiographic studies for review. No cultures. ASSESSMENT AND PLAN: We have an elderly gentleman with atherosclerotic vascular disease status post EKOS catheter placement for intra-arterial clots who is still being monitored, not completely out of the [place]. Respiratory loyd, though despite the chronic obstructive pulmonary disease history he is doing well under. I am going to ask him if he was on any home bronchodilators. In the meantime, I will just put him on p.r.n., DuoNeb treatments. Aspiration precautions will be maintained. Oxygen will be weaned to keep sats greater than or equal to about 92 to 94%. He will be placed on GI prophylaxis. I will defer to the vascular team and Interventional Radiology team in terms for further interventions. He is on IV heparin therapy all the more reason he will be on acid protective therapy with Pepcid. I have counseled to tobacco abstinence. Flu and pneumonia vaccination will be per protocol. Hopefully, he does not lose significant blood and does well, we will keep him in the intensive care unit, observe him overnight and I will have discussions with the vascular team and collectively decide on the appropriate time to transfer out of the Intensive Care Unit. Relatively hemodynamically stable at this point. JOB# [id number] [place]
[2016-08-10 07:20] LABS: Hematocrit 24.1 % (35.5-45.6)
[2016-08-10 07:25] LABS: Anion Gap 14 mmol/L; BUN/Creatinine Ratio 33.33; Blood Urea Nitrogen 30 mg/dL (9-20); Carbon Dioxide 18 mmol/L (22-30); Chloride 109.4 mmol/L (98-107); Glucose 117 mg/dL (75-100); Sodium 137 mmol/L (137-145)
--- NOTE | 2016-08-10 09:29 | Progress Note ---
Subjective Date of service: 08/10/16 Principal diagnosis: LLE ischemia Interval history: Patient seen post -op day one, satisfied with anesthesia provided. Objective - Constitutional Vitals: Vital Signs - 12hr 08/09/16 08/09/16 08/09/16 21:30 21:46 22:00 Temperature Pulse Rate 65 70 67 Pulse Rate [ Apical] Pulse Rate [ From Monitor] Respiratory 10 L 11 L 19 Rate Respiratory 17 Rate [Left Leg] Blood Pressure 95/53 95/53 92/56 O2 Sat by Pulse 98 98 98 Oximetry 08/09/16 08/09/16 08/09/16 22:16 22:24 22:30 Temperature Pulse Rate 62 89 72 Pulse Rate [ Apical] Pulse Rate [ From Monitor] Respiratory 11 L 16 9 L Rate Respiratory Rate [Left Leg] Blood Pressure 92/56 92/56 106/56 O2 Sat by Pulse 98 98 97 Oximetry 08/09/16 08/09/16 08/09/16 22:46 23:00 23:16 Temperature Pulse Rate 62 81 57 L Pulse Rate [ 68 Apical] Pulse Rate [ 69 From Monitor] Respiratory 11 L 11 L 12 Rate Respiratory Rate [Left Leg] Blood Pressure 106/56 100/63 100/63 O2 Sat by Pulse 96 97 97 Oximetry 08/09/16 08/09/16 08/10/16 23:30 23:46 00:00 Temperature 97.7 F Pulse Rate 58 L 63 73 Pulse Rate [ Apical] Pulse Rate [ From Monitor] Respiratory 11 L 9 L 12 Rate Respiratory Rate [Left Leg] Blood Pressure 91/54 91/54 82/57 O2 Sat by Pulse 99 98 98 Oximetry 08/10/16 08/10/16 08/10/16 00:16 00:30 00:46 Temperature Pulse Rate 61 58 L 75 Pulse Rate [ Apical] Pulse Rate [ From Monitor] Respiratory 10 L 11 L 13 Rate Respiratory Rate [Left Leg] Blood Pressure 88/48 83/51 83/51 O2 Sat by Pulse 98 98 98 Oximetry 08/10/16 08/10/16 08/10/16 01:00 01:16 01:30 Temperature Pulse Rate 52 L 54 L 55 L Pulse Rate [ 72 Apical] Pulse Rate [ 67 From Monitor] Respiratory 11 L 9 L 11 L Rate Respiratory Rate [Left Leg] Blood Pressure 85/53 85/53 85/53 O2 Sat by Pulse 98 98 98 Oximetry 08/10/16 08/10/16 08/10/16 01:46 02:00 02:16 Temperature Pulse Rate 55 L 55 L 52 L Pulse Rate [ Apical] Pulse Rate [ From Monitor] Respiratory 9 L 10 L 9 L Rate Respiratory Rate [Left Leg] Blood Pressure 85/53 87/50 87/50 O2 Sat by Pulse 97 97 98 Oximetry 08/10/16 08/10/16 08/10/16 02:30 02:46 03:00 Temperature Pulse Rate 51 L 53 L 51 L Pulse Rate [ 61 Apical] Pulse Rate [ 59 L From Monitor] Respiratory 10 L 9 L 10 L Rate Respiratory Rate [Left Leg] Blood Pressure 93/52 93/52 100/52 O2 Sat by Pulse 99 99 99 Oximetry 08/10/16 08/10/16 08/10/16 03:16 03:30 03:46 Temperature Pulse Rate 51 L 57 L 49 L Pulse Rate [ Apical] Pulse Rate [ From Monitor] Respiratory 11 L 13 10 L Rate Respiratory Rate [Left Leg] Blood Pressure 100/52 99/58 99/58 O2 Sat by Pulse 99 99 100 Oximetry 08/10/16 08/10/16 08/10/16 04:00 04:16 04:30 Temperature 97.7 F Pulse Rate 49 L 50 L 71 Pulse Rate [ Apical] Pulse Rate [ From Monitor] Respiratory 9 L 10 L 11 L Rate Respiratory Rate [Left Leg] Blood Pressure 91/50 91/50 101/57 O2 Sat by Pulse 99 99 99 Oximetry 08/10/16 08/10/16 08/10/16 04:46 05:00 05:16 Temperature Pulse Rate 51 L 48 L 54 L Pulse Rate [ Apical] Pulse Rate [ From Monitor] Respiratory 10 L 10 L 10 L Rate Respiratory Rate [Left Leg] Blood Pressure 101/57 89/53 89/53 O2 Sat by Pulse 99 99 98 Oximetry 08/10/16 08/10/16 08/10/16 05:30 05:46 06:00 Temperature Pulse Rate 53 L 52 L 49 L Pulse Rate [ Apical] Pulse Rate [ From Monitor] Respiratory 9 L 11 L 9 L Rate Respiratory Rate [Left Leg] Blood Pressure 78/51 89/62 97/51 O2 Sat by Pulse 99 100 100 Oximetry 08/10/16 08/10/16 08/10/16 06:16 06:30 07:55 Temperature Pulse Rate 47 L 50 L Pulse Rate [ Apical] Pulse Rate [ From Monitor] Respiratory 9 L 9 L Rate Respiratory Rate [Left Leg] Blood Pressure 97/51 98/59 O2 Sat by Pulse 99 100 100 Oximetry - Labs CBC & Chem 7: 08/10/16 04:31 08/10/16 04:31 Labs: Abnormal lab results 08/07/16 08/09/16 08/10/16 Range/Units 15:34 11:02 04:31 Hgb 7.2 L (11.8-15.2) gm/dl Hct 22.4 L D (35.5-45.6) % Plt Count (140-440) K/mm3 Chloride 109.4 H (98-107) mmol/L Carbon Dioxide 18 L (22-30) mmol/L BUN 30 H (9-20) mg/dL Glucose 117 H (75-100) mg/dL Calcium 7.0 L (8.4-10.2) mg/dL Crossmatch See Detail 08/10/16 Range/Units 04:31 Hgb 8.0 L (11.8-15.2) gm/dl Hct 24.1 L (35.5-45.6) % Plt Count 94 L (140-440) K/mm3 Chloride (98-107) mmol/L Carbon Dioxide (22-30) mmol/L BUN (9-20) mg/dL Glucose (75-100) mg/dL Calcium (8.4-10.2) mg/dL Crossmatch
[2016-08-10] MEDS: PEPCID PO SCH ×2 (10:05→22:02)
[2016-08-10] MEDS: NEURONTIN PO SCH ×2 (10:05→22:02)
[2016-08-10] MEDS: PLAVIX PO SCH (10:05)
--- NOTE | 2016-08-10 12:25 | Progress Note ---
Assessment and Plan - Patient Problems (1) Peripheral vascular disease Current Visit: Yes Status: Acute Plan to address problem: - continue antiplatelet therapy - s/p EkOS catheter removal - follow H&H - per vascular team otherwise (2) Tobacco use disorder Current Visit: Yes Status: Acute Plan to address problem: - abstinence counselled - nicotine patch ordered (3) H/O fasciotomy Current Visit: Yes Status: Acute Plan to address problem: - dressings to be changed by surgeon tomorrow - s/p left leg fasciotomies - good pedal pulse and warmth (4) Anemia due to acute blood loss Current Visit: Yes Status: Acute Plan to address problem: - received blood transfusions - follow H&H ([facility]) - follow clinically (5) COPD (chronic obstructive pulmonary disease) Current Visit: Yes Status: Acute Qualifiers: COPD type: C Chronic bronchitis type: C Emphysema type: E Plan to address problem: - Added LABA, MANUELA & ICS - wean oxygen for sats > 94% Subjective Date of service: 08/10/16 Principal diagnosis: LLE ischemia Interval history: Seen and examined at bedside; 24 hour events reviewed; nursing and respiratory care staff consulted; no adverse overnight events reported to me; remains in bed ; minimal drainage from fasciotomy site; confirms that he does have COPD and uses bronchodilators at home; remains on 2L NC Objective Vital Signs - 12hr 08/10/16 08/10/16 08/10/16 00:30 00:46 01:00 Temperature Pulse Rate 58 L 75 52 L Pulse Rate [ 72 Apical] Pulse Rate [ 67 From Monitor] Respiratory 11 L 13 11 L Rate Blood Pressure 83/51 83/51 85/53 O2 Sat by Pulse 98 98 98 Oximetry 08/10/16 08/10/16 08/10/16 01:16 01:30 01:46 Temperature Pulse Rate 54 L 55 L 55 L Pulse Rate [ Apical] Pulse Rate [ From Monitor] Respiratory 9 L 11 L 9 L Rate Blood Pressure 85/53 85/53 85/53 O2 Sat by Pulse 98 98 97 Oximetry 08/10/16 08/10/16 08/10/16 02:00 02:16 02:30 Temperature Pulse Rate 55 L 52 L 51 L Pulse Rate [ Apical] Pulse Rate [ From Monitor] Respiratory 10 L 9 L 10 L Rate Blood Pressure 87/50 87/50 93/52 O2 Sat by Pulse 97 98 99 Oximetry 08/10/16 08/10/16 08/10/16 02:46 03:00 03:16 Temperature Pulse Rate 53 L 51 L 51 L Pulse Rate [ 61 Apical] Pulse Rate [ 59 L From Monitor] Respiratory 9 L 10 L 11 L Rate Blood Pressure 93/52 100/52 100/52 O2 Sat by Pulse 99 99 99 Oximetry 08/10/16 08/10/16 08/10/16 03:30 03:46 04:00 Temperature 97.7 F Pulse Rate 57 L 49 L 49 L Pulse Rate [ Apical] Pulse Rate [ From Monitor] Respiratory 13 10 L 9 L Rate Blood Pressure 99/58 99/58 91/50 O2 Sat by Pulse 99 100 99 Oximetry 08/10/16 08/10/16 08/10/16 04:16 04:30 04:46 Temperature Pulse Rate 50 L 71 51 L Pulse Rate [ Apical] Pulse Rate [ From Monitor] Respiratory 10 L 11 L 10 L Rate Blood Pressure 91/50 101/57 101/57 O2 Sat by Pulse 99 99 99 Oximetry 08/10/16 08/10/16 08/10/16 05:00 05:16 05:30 Temperature Pulse Rate 48 L 54 L 53 L Pulse Rate [ Apical] Pulse Rate [ 66 From Monitor] Respiratory 10 L 10 L 9 L Rate Blood Pressure 89/53 89/53 78/51 O2 Sat by Pulse 99 98 99 Oximetry 08/10/16 08/10/16 08/10/16 05:46 06:00 06:16 Temperature Pulse Rate 52 L 49 L 47 L Pulse Rate [ Apical] Pulse Rate [ From Monitor] Respiratory 11 L 9 L 9 L Rate Blood Pressure 89/62 97/51 97/51 O2 Sat by Pulse 100 100 99 Oximetry 08/10/16 08/10/16 08/10/16 06:30 06:46 07:00 Temperature Pulse Rate 50 L 58 L 80 Pulse Rate [ Apical] Pulse Rate [ From Monitor] Respiratory 9 L 11 L 10 L Rate Blood Pressure 98/59 98/59 115/64 O2 Sat by Pulse 100 100 100 Oximetry 08/10/16 08/10/16 08/10/16 07:16 07:30 07:46 Temperature 97.5 F L Pulse Rate 71 56 L 66 Pulse Rate [ Apical] Pulse Rate [ From Monitor] Respiratory 10 L 11 L 13 Rate Blood Pressure 115/64 118/63 118/63 O2 Sat by Pulse 100 100 100 Oximetry 08/10/16 08/10/16 08/10/16 07:55 08:00 08:16 Temperature Pulse Rate 69 66 Pulse Rate [ 74 Apical] Pulse Rate [ 75 From Monitor] Respiratory 11 L 10 L Rate Blood Pressure 125/82 125/82 O2 Sat by Pulse 100 100 100 Oximetry 08/10/16 08/10/16 08/10/16 08:30 08:46 09:00 Temperature Pulse Rate 80 89 95 H Pulse Rate [ Apical] Pulse Rate [ From Monitor] Respiratory 11 L 13 11 L Rate Blood Pressure 93/68 93/68 93/68 O2 Sat by Pulse 98 95 100 Oximetry 08/10/16 08/10/16 08/10/16 09:16 09:30 09:46 Temperature Pulse Rate 82 82 92 H Pulse Rate [ Apical] Pulse Rate [ From Monitor] Respiratory 17 9 L 13 Rate Blood Pressure 93/68 113/76 113/76 O2 Sat by Pulse 100 100 100 Oximetry 08/10/16 08/10/16 08/10/16 10:00 10:16 10:30 Temperature Pulse Rate 89 75 63 Pulse Rate [ Apical] Pulse Rate [ From Monitor] Respiratory 12 12 12 Rate Blood Pressure 110/79 110/79 118/72 O2 Sat by Pulse 100 100 100 Oximetry 08/10/16 08/10/16 08/10/16 10:46 11:00 11:16 Temperature Pulse Rate 74 76 84 Pulse Rate [ Apical] Pulse Rate [ From Monitor] Respiratory 12 15 13 Rate Blood Pressure 118/72 111/67 111/67 O2 Sat by Pulse 98 100 99 Oximetry 08/10/16 11:30 Temperature Pulse Rate 61 Pulse Rate [ Apical] Pulse Rate [ From Monitor] Respiratory 10 L Rate Blood Pressure 111/67 O2 Sat by Pulse 100 Oximetry Constitutional: no acute distress, alert Eyes: non-icteric ENT: oropharynx moist Neck: supple, no lymphadenopathy Effort: normal Ascultation: Bilateral: clear, diminished breath sounds, other (prolonged exp phase) Cardiovascular: regular rate and rhythm Gastrointestinal: normoactive bowel sounds, soft, non-tender, non-distended Integumentary: normal Extremities: no cyanosis, pink and warm, no ischemia or petechiae, edema (left lower extremity) Neurologic: normal mental status, non-focal exam, pupils equal and round, motor strength normal and Psychiatric: mood appropriate, affect normal CBC and BMP: 08/10/16 04:31 08/10/16 04:31 ABG, PT/INR, D-dimer: PT/INR, D-dimer PT 13.2 Sec. (12.2-14.9) 08/08/16 16:49 INR 1.01 (0.87-1.13) 08/08/16 16:49 Abnormal lab findings: Abnormal Labs 08/07/16 08/07/16 08/07/16 15:34 15:34 15:34 WBC Hgb Hct RDW 17.1 H Plt Count Lymph % (Auto) Hancock % (Auto) Eos % (Auto) 8.6 H [place] # Eos # 0.9 H Seg Neutrophils % Seg Neutrophils # APTT < 20.0 L Fibrinogen Heparin Anti-Xa Level Sodium Potassium Chloride Carbon Dioxide BUN Glucose Calcium Crossmatch See Detail 08/07/16 08/07/16 08/08/16 21:28 21:28 04:29 WBC 14.2 H 14.8 H Hgb Hct RDW 17.2 H 16.8 H Plt Count Lymph % (Auto) 12.3 L 8.5 L [place] % (Auto) 7.5 H Eos % (Auto) 5.3 H [place] # 0.9 H 1.1 H Eos # 0.7 H 0.5 H Seg Neutrophils % 75.5 H 80.3 H Seg Neutrophils # 10.7 H 11.9 H APTT Fibrinogen Heparin Anti-Xa Level Sodium Potassium Chloride Carbon Dioxide BUN 24 H Glucose Calcium Crossmatch 08/08/16 08/08/16 08/08/16 04:29 04:29 07:16 WBC 15.2 H Hgb Hct RDW 17.3 H Plt Count Lymph % (Auto) 8.7 L [place] % (Auto) 8.2 H Eos % (Auto) [place] # 1.2 H Eos # 0.5 H Seg Neutrophils % 79.4 H Seg Neutrophils # 12.1 H APTT Fibrinogen 186 L Heparin Anti-Xa Level 0.10 L Sodium Potassium Chloride Carbon Dioxide BUN 22 H Glucose 122 H Calcium 8.1 L Crossmatch 08/08/16 08/08/16 08/08/16 07:16 16:49 16:49 WBC Hgb 9.8 L Hct 31.1 L D RDW Plt Count Lymph % (Auto) [place] % (Auto) Eos % (Auto) H[place] # Eos # Seg Neutrophils % Seg Neutrophils # APTT 94.0 H* Fibrinogen 189 L Heparin Anti-Xa Level < 0.10 L Sodium Potassium Chloride Carbon Dioxide BUN Glucose Calcium Crossmatch 08/09/16 08/09/16 08/09/16 04:46 06:51 11:02 WBC Hgb 7.2 L Hct 22.4 L D RDW Plt Count Lymph % (Auto) [place] % (Auto) Eos % (Auto) H[place] # Eos # Seg Neutrophils % Seg Neutrophils # APTT Fibrinogen Heparin Anti-Xa Level Sodium 135 L 135 L Potassium 6.2 H* D 5.1 H Chloride 109.2 H 107.5 H Carbon Dioxide 14 L D 18 L BUN 28 H 28 H Glucose 113 H 129 H Calcium 6.9 L 7.1 L Crossmatch 08/10/16 08/10/16 04:31 04:31 WBC Hgb 8.0 L Hct 24.1 L RDW Plt Count 94 L Lymph % (Auto) Hancock % (Auto) Eos % (Auto) Hancock # Eos # Seg Neutrophils % Seg Neutrophils # APTT Fibrinogen Heparin Anti-Xa Level Sodium Potassium Chloride 109.4 H Carbon Dioxide 18 L BUN 30 H Glucose 117 H Calcium 7.0 L Crossmatch
--- NOTE | 2016-08-10 12:58 | Progress Note ---
Assessment and Plan s/p Left Lower Extremity 4 Compartment Fasciotomy, Open Thrombectomy of Anterior Tibial Artery with 3 Demarco and Repair of Left Popliteal Artery Aneurysm With Femoropopliteal Bypass With Reverse Left Greater Saphenous Vein Graft And Ligation of the Popliteal Artery non-obstructive CAD by cath 2011 MPI 2013 - fixed septal wall defect, no ischemia Echo 2013 - LVEF 55% acute blood loss anemia nicotine dependence Recommendations: Cardiac loyd stable Continue plavix Resume metoprolol 25 mg po twice daily Will continue to follow Subjective Date of service: 08/10/16 Principal diagnosis: LLE ischemia Interval history: Patient denies chest pain or shortness of breath. Tele is showing SR. Objective Vital Signs Temp Pulse Pulse Pulse Resp Resp BP 08/10/16 11:30 61 10 L 111/67 08/10/16 11:16 84 13 111/67 08/10/16 11:00 76 15 111/67 08/10/16 10:46 74 12 118/72 08/10/16 10:30 63 12 118/72 08/10/16 10:16 75 12 110/79 08/10/16 10:00 89 12 110/79 08/10/16 09:46 92 H 13 113/76 08/10/16 09:30 82 9 L 113/76 08/10/16 09:16 82 17 93/68 08/10/16 09:00 95 H 11 L 93/68 08/10/16 08:46 89 13 93/68 08/10/16 08:30 80 11 L 93/68 08/10/16 08:16 66 10 L 125/82 08/10/16 08:00 69 74 75 11 L 125/82 08/10/16 07:55 08/10/16 07:46 66 13 118/63 08/10/16 07:30 97.5 F L 56 L 11 L 118/63 08/10/16 07:16 71 10 L 115/64 08/10/16 07:00 80 10 L 115/64 08/10/16 06:46 58 L 11 L 98/59 08/10/16 06:30 50 L 9 L 98/59 08/10/16 06:16 47 L 9 L 97/51 08/10/16 06:00 49 L 9 L 97/51 08/10/16 05:46 52 L 11 L 89/62 08/10/16 05:30 53 L 9 L 78/51 08/10/16 05:16 54 L 10 L 89/53 08/10/16 05:00 48 L 66 10 L 89/53 08/10/16 04:46 51 L 10 L 101/57 08/10/16 04:30 71 11 L 101/57 08/10/16 04:16 50 L 10 L 91/50 08/10/16 04:00 97.7 F 49 L 9 L 91/50 08/10/16 03:46 49 L 10 L 99/58 08/10/16 03:30 57 L 13 99/58 08/10/16 03:16 51 L 11 L 100/52 08/10/16 03:00 51 L 61 59 L 10 L 100/52 08/10/16 02:46 53 L 9 L 93/52 08/10/16 02:30 51 L 10 L 93/52 08/10/16 02:16 52 L 9 L 87/50 08/10/16 02:00 55 L 10 L 87/50 08/10/16 01:46 55 L 9 L 85/53 08/10/16 01:30 55 L 11 L 85/53 08/10/16 01:16 54 L 9 L 85/53 08/10/16 01:00 52 L 72 67 11 L 85/53 08/10/16 00:46 75 13 83/51 08/10/16 00:30 58 L 11 L 83/51 08/10/16 00:16 61 10 L 88/48 08/10/16 00:00 97.7 F 73 12 82/57 08/09/16 23:46 63 9 L 91/54 08/09/16 23:30 58 L 11 L 91/54 08/09/16 23:16 57 L 12 100/63 08/09/16 23:00 81 68 69 11 L 100/63 08/09/16 22:46 62 11 L 106/56 08/09/16 22:30 72 9 L 106/56 08/09/16 22:24 89 16 92/56 08/09/16 22:16 62 11 L 92/56 08/09/16 22:00 67 19 17 92/56 08/09/16 21:46 70 11 L 95/53 06/15/17 21:30 65 10 L 95/53 08/09/16 21:16 68 11 L 92/49 08/09/16 21:00 76 76 19 88/61 08/09/16 20:46 77 15 93/58 08/09/16 20:30 79 10 L 98/48 08/09/16 20:17 08/09/16 20:16 73 11 L 104/60 08/09/16 20:00 98.2 F 78 12 106/65 08/09/16 19:46 77 10 L 104/60 08/09/16 19:30 80 16 106/68 08/09/16 19:16 64 11 L 94/53 08/09/16 19:00 72 9 L 100/58 08/09/16 18:46 74 9 L 92/50 08/09/16 18:30 60 12 100/57 08/09/16 18:16 76 14 96/56 08/09/16 18:00 77 9 L 114/60 08/09/16 17:50 66 12 114/60 08/09/16 17:40 75 11 L 108/69 08/09/16 17:30 62 12 99/58 08/09/16 17:16 76 13 104/56 08/09/16 17:00 61 73 11 L 95/54 08/09/16 16:46 69 10 L 103/53 08/09/16 16:30 61 11 L 94/53 08/09/16 16:24 97.9 F 08/09/16 16:21 97.9 F 67 12 96/53 08/09/16 16:16 74 11 L 96/53 08/09/16 16:00 97.9 F 65 9 L 95/53 08/09/16 15:46 78 10 L 103/66 08/09/16 15:30 75 13 97/57 08/09/16 15:16 85 12 88/51 08/09/16 15:10 97.9 F 78 12 105/64 08/09/16 15:00 72 8 L 96/60 08/09/16 14:46 78 13 102/57 08/09/16 14:30 79 15 100/31 08/09/16 14:16 70 9 L 87/45 08/09/16 14:15 98.5 F 65 16 91/48 08/09/16 14:00 98.6 F 78 15 90/50 08/09/16 13:46 67 11 L 92/52 08/09/16 13:30 79 10 L 87/57 08/09/16 13:16 87 12 92/55 08/09/16 13:00 83 65 11 L 90/59 Pulse Ox 08/10/16 11:30 100 08/10/16 11:16 99 08/10/16 11:00 100 08/10/16 10:46 98 08/10/16 10:30 100 08/10/16 10:16 100 08/10/16 10:00 100 08/10/16 09:46 100 08/10/16 09:30 100 08/10/16 09:16 100 08/10/16 09:00 100 08/10/16 08:46 95 08/10/16 08:30 98 08/10/16 08:16 100 08/10/16 08:00 100 08/10/16 07:55 100 08/10/16 07:46 100 08/10/16 07:30 100 08/10/16 07:16 100 08/10/16 07:00 100 08/10/16 06:46 100 08/10/16 06:30 100 08/10/16 06:16 99 08/10/16 06:00 100 08/10/16 05:46 100 08/10/16 05:30 99 08/10/16 05:16 98 08/10/16 05:00 99 08/10/16 04:46 99 08/10/16 04:30 99 08/10/16 04:16 99 08/10/16 04:00 99 08/10/16 03:46 100 08/10/16 03:30 99 08/10/16 03:16 99 08/10/16 03:00 99 08/10/16 02:46 99 08/10/16 02:30 99 08/10/16 02:16 98 08/10/16 02:00 97 08/10/16 01:46 97 08/10/16 01:30 98 08/10/16 01:16 98 08/10/16 01:00 98 08/10/16 00:46 98 08/10/16 00:30 98 08/10/16 00:16 98 08/10/16 00:00 98 08/09/16 23:46 98 08/09/16 23:30 99 08/09/16 23:16 97 08/09/16 23:00 97 08/09/16 22:46 96 08/09/16 22:30 97 08/09/16 22:24 98 08/09/16 22:16 98 08/09/16 22:00 98 08/09/16 21:46 98 08/09/16 21:30 98 08/09/16 21:16 98 08/09/16 21:00 97 08/09/16 20:46 99 08/09/16 20:30 99 08/09/16 20:17 99 08/09/16 20:16 100 08/09/16 20:00 95 08/09/16 19:46 99 08/09/16 19:30 99 08/09/16 19:16 99 08/09/16 19:00 99 08/09/16 18:46 99 08/09/16 18:30 99 08/09/16 18:16 99 08/09/16 18:00 99 08/09/16 17:50 99 08/09/16 17:40 99 08/09/16 17:30 97 08/09/16 17:16 100 08/09/16 17:00 91 08/09/16 16:46 100 08/09/16 16:30 100 08/09/16 16:24 08/09/16 16:21 08/09/16 16:16 100 08/09/16 16:00 100 08/09/16 15:46 100 08/09/16 15:30 100 08/09/16 15:16 100 08/09/16 15:10 08/09/16 15:00 100 08/09/16 14:46 100 08/09/16 14:30 100 08/09/16 14:16 99 08/09/16 14:15 08/09/16 14:00 99 08/09/16 13:46 99 08/09/16 13:30 99 08/09/16 13:16 97 08/09/16 13:00 99 - Physical Examination HEENT: Positive: PERRL Neck: Positive: neck supple Cardiac: Positive: Reg Rate and Rhythm Lungs: Positive: Normal Exam Neuro: Positive: Grossly Intact Abdomen: Positive: Soft Skin: Positive: Clear Extremities: Absent: edema - Labs and Meds CBC 08/10/16 Range/Units 04:31 Hgb 8.0 L (11.8-15.2) gm/dl Hct 24.1 L (35.5-45.6) % Plt Count 94 L (140-440) K/mm3 Comprehensive Metabolic Panel 08/10/16 Range/Units 04:31 Sodium 137 (137-145) mmol/L Potassium 4.0 D (3.6-5.0) mmol/L Chloride 109.4 H (98-107) mmol/L Carbon Dioxide 18 L (22-30) mmol/L BUN 30 H (9-20) mg/dL Creatinine 0.9 (0.8-1.5) mg/dL Glucose 117 H (75-100) mg/dL Calcium 7.0 L (8.4-10.2) mg/dL
--- NOTE | 2016-08-10 14:58 | Vascular Lab Report ---
MISCELLANEOUS VESSEL IDENTIFICATION: COMMENTS ON THE SCAN: The left popliteal artery was identified and under real-time ultrasound guidance was cannulated. IMPRESSION: Successful ultrasound guided arterial cannulation.
--- NOTE | 2016-08-10 16:22 | Progress Note ---
Assessment and Plan Patient is status post percutaneous revascularization to the left lower extremity. He subsequently developed a compartment syndrome, and was taken to the operating room for a fasciotomy. A lower extremity bypass was performed at that time. Check wounds next 24-48 hours. Check arterial duplex of the right lower shortening and aorta to evaluate for occult aneurysms. Convert from hydrocodone to oxycodone and hopes to improve pain control. Will order intravenous Dilaudid for breakthrough pain We'll consult physical therapy for gait training. - Patient Problems (1) Ischemia of left lower extremity Current Visit: Yes Status: Acute (2) Compartment syndrome Current Visit: Yes Status: Acute Qualifiers: Compartment syndrome type: C Encounter type: E Compartment syndrome location: C Laterality: L Subjective Date of service: 08/10/16 Principal diagnosis: LLE ischemia Interval history: Patient is awake and alert. He complains of moderate incisional discomfort with little relief from oral analgesics thus far. He seen by pain management as an outpatient and is prescribed Percocet. Objective - Constitutional Vitals: Vital Signs - 12hr 08/10/16 08/10/16 08/10/16 04:16 04:30 04:46 Temperature Pulse Rate 50 L 71 51 L Pulse Rate [ Apical] Pulse Rate [ From Monitor] Respiratory 10 L 11 L 10 L Rate Blood Pressure 91/50 101/57 101/57 O2 Sat by Pulse 99 99 99 Oximetry 08/10/16 08/10/16 08/10/16 05:00 05:16 05:30 Temperature Pulse Rate 48 L 54 L 53 L Pulse Rate [ Apical] Pulse Rate [ 66 From Monitor] Respiratory 10 L 10 L 9 L Rate Blood Pressure 89/53 89/53 78/51 O2 Sat by Pulse 99 98 99 Oximetry 08/10/16 08/10/16 08/10/16 05:46 06:00 06:16 Temperature Pulse Rate 52 L 49 L 47 L Pulse Rate [ Apical] Pulse Rate [ From Monitor] Respiratory 11 L 9 L 9 L Rate Blood Pressure 89/62 97/51 97/51 O2 Sat by Pulse 100 100 99 Oximetry 08/10/16 08/10/16 08/10/16 06:30 06:46 07:00 Temperature Pulse Rate 50 L 58 L 80 Pulse Rate [ Apical] Pulse Rate [ From Monitor] Respiratory 9 L 11 L 10 L Rate Blood Pressure 98/59 98/59 115/64 O2 Sat by Pulse 100 100 100 Oximetry 08/10/16 08/10/16 08/10/16 07:16 07:30 07:46 Temperature 97.5 F L Pulse Rate 71 56 L 66 Pulse Rate [ Apical] Pulse Rate [ From Monitor] Respiratory 10 L 11 L 13 Rate Blood Pressure 115/64 118/63 118/63 O2 Sat by Pulse 100 100 100 Oximetry 08/10/16 08/10/16 08/10/16 07:55 08:00 08:16 Temperature Pulse Rate 69 66 Pulse Rate [ 74 Apical] Pulse Rate [ 75 From Monitor] Respiratory 11 L 10 L Rate Blood Pressure 125/82 125/82 O2 Sat by Pulse 100 100 100 Oximetry 08/10/16 08/10/16 08/10/16 08:30 08:46 09:00 Temperature Pulse Rate 80 89 95 H Pulse Rate [ Apical] Pulse Rate [ From Monitor] Respiratory 11 L 13 11 L Rate Blood Pressure 93/68 93/68 93/68 O2 Sat by Pulse 98 95 100 Oximetry 08/10/16 08/10/16 08/10/16 09:16 09:30 09:46 Temperature Pulse Rate 82 82 92 H Pulse Rate [ Apical] Pulse Rate [ From Monitor] Respiratory 17 9 L 13 Rate Blood Pressure 93/68 113/76 113/76 O2 Sat by Pulse 100 100 100 Oximetry 08/10/16 08/10/16 08/10/16 10:00 10:16 10:30 Temperature Pulse Rate 89 75 63 Pulse Rate [ Apical] Pulse Rate [ From Monitor] Respiratory 12 12 12 Rate Blood Pressure 110/79 110/79 118/72 O2 Sat by Pulse 100 100 100 Oximetry 08/10/16 08/10/16 08/10/16 10:46 11:00 11:16 Temperature Pulse Rate 74 76 84 Pulse Rate [ Apical] Pulse Rate [ From Monitor] Respiratory 12 15 13 Rate Blood Pressure 118/72 111/67 111/67 O2 Sat by Pulse 98 100 99 Oximetry 08/10/16 11:30 Temperature Pulse Rate 61 Pulse Rate [ Apical] Pulse Rate [ From Monitor] Respiratory 10 L Rate Blood Pressure 111/67 O2 Sat by Pulse 100 Oximetry General appearance: Present: no acute distress - EENT Eyes: EOM intact ENT: hearing intact - Neck Neck: supple - Respiratory Respiratory effort: normal Extremities: no ischemia (post-op hyperemia) Extremity abnormal: edema (mild left lower ext pedal edema) - Neurologic Neurologic: other (dorsiflex and plantarflexs foot, weak but suspect this is due to discomfort. Decreased sensation to bottom of his left foot.) - Psychiatric Psychiatric: appropriate mood/affect, intact judgment & insight, memory intact - Labs CBC & Chem 7: 08/10/16 04:31 08/10/16 04:31 Labs: Abnormal lab results 08/07/16 08/10/16 08/10/16 Range/Units 15:34 04:31 04:31 Hgb 8.0 L (11.8-15.2) gm/dl Hct 24.1 L (35.5-45.6) % Plt Count 94 L (140-440) K/mm3 Chloride 109.4 H (98-107) mmol/L Carbon Dioxide 18 L (22-30) mmol/L BUN 30 H (9-20) mg/dL Glucose 117 H (75-100) mg/dL Calcium 7.0 L (8.4-10.2) mg/dL Crossmatch See Detail
[2016-08-10] MEDS: DILAUDID IV PRN ×2 (16:49→19:59)
[2016-08-10] MEDS: BROVANA NEBU IH SCH (21:05)
[2016-08-10] MEDS: PULMICORT IH SCH (21:05)
[2016-08-10] MEDS: LOPRESSOR PO SCH (22:00)
[2016-08-10] MEDS: PERCOCET 5/325 PO PRN (22:01)
[2016-08-11] MEDS: DILAUDID IV PRN ×5 (01:52→20:54)
[2016-08-11] MEDS: PERCOCET 5/325 PO PRN (06:16)
[2016-08-11] MEDS: TORADOL IV SCH ×4 (06:18→22:07)
[2016-08-11] MEDS: PLAVIX PO SCH (09:00)
[2016-08-11] MEDS: PEPCID PO SCH ×2 (09:00→21:35)
[2016-08-11] MEDS: LOPRESSOR PO SCH ×2 (09:00→21:35)
[2016-08-11] MEDS: NEURONTIN PO SCH ×3 (09:01→21:36)
[2016-08-11] MEDS: PULMICORT IH SCH ×2 (09:21→20:21)
[2016-08-11] MEDS: BROVANA NEBU IH SCH ×2 (09:21→20:21)
--- NOTE | 2016-08-11 09:53 | Progress Note ---
Assessment and Plan - Patient Problems (1) Anemia due to acute blood loss Current Visit: Yes Status: Acute (2) COPD (chronic obstructive pulmonary disease) Current Visit: Yes Status: Acute Qualifiers: COPD type: C Chronic bronchitis type: C Emphysema type: E (3) Compartment syndrome Current Visit: Yes Status: Acute Qualifiers: Compartment syndrome type: C Encounter type: E Compartment syndrome location: C Laterality: L (4) Coronary disease Current Visit: Yes Status: Acute Qualifiers: Coronary Disease-Associated Artery/Lesion type: C [place] vs. transplanted heart: N Associated angina: A Plan to address problem: STABLE CV,,,MONITOR VS/VOL. STATUS (5) Ischemia of left lower extremity Current Visit: Yes Status: Acute (6) Peripheral vascular disease Current Visit: Yes Status: Acute (7) Post-operative state Current Visit: Yes Status: Acute Subjective Date of service: 08/11/16 Principal diagnosis: LLE ischemia Interval history: NO CV C\O,,EATING Objective Vital Signs Temp Pulse Pulse Pulse Resp Resp BP 08/11/16 09:23 97.9 F 08/11/16 09:00 89 13 142/93 08/11/16 08:46 85 11 L 137/76 08/11/16 08:30 80 8 L 137/76 08/11/16 08:16 91 H 16 137/76 08/11/16 08:00 97.9 F 73 90 12 137/76 08/11/16 07:46 73 8 L 157/81 08/11/16 07:30 68 9 L 157/81 08/11/16 07:16 75 8 L 157/81 08/11/16 07:00 66 7 L 157/81 08/11/16 06:46 81 10 L 149/84 08/11/16 06:30 77 9 L 149/84 08/11/16 06:16 82 17 149/84 08/11/16 06:00 89 12 104/67 08/11/16 05:46 63 11 L 104/67 08/11/16 05:30 61 9 L 104/67 08/11/16 05:16 68 11 L 104/67 08/11/16 05:00 58 L 10 L 104/67 08/11/16 04:46 58 L 10 L 104/67 08/11/16 04:30 58 L 11 L 104/67 08/11/16 04:16 78 12 104/67 08/11/16 04:00 67 11 L 104/67 08/11/16 03:46 87 11 L 104/67 08/11/16 03:30 61 8 L 104/67 08/11/16 03:16 67 9 L 104/67 08/11/16 03:00 99 F 64 9 L 104/67 08/11/16 02:46 70 9 L 08/11/16 02:30 62 10 L 104/67 08/11/16 02:16 69 10 L 104/67 08/11/16 02:00 85 17 104/67 08/11/16 01:46 79 11 L 104/67 08/11/16 01:30 71 10 L 104/67 08/11/16 01:16 77 10 L 104/67 08/11/16 01:00 79 13 104/67 08/11/16 00:46 66 12 104/67 08/11/16 00:30 67 10 L 104/67 08/11/16 00:16 74 10 L 104/67 08/11/16 00:00 99 F 73 11 L 104/67 08/10/16 23:51 97.8 F 08/10/16 23:46 71 9 L 104/67 08/10/16 23:30 102 H 12 104/67 08/10/16 23:16 84 14 104/67 08/10/16 23:04 82 10 L 104/67 08/10/16 23:00 80 11 L 104/67 08/10/16 22:46 78 11 L 104/67 08/10/16 22:30 95 H 11 L 104/67 08/10/16 22:16 93 H 13 104/67 08/10/16 22:00 84 12 104/67 08/10/16 21:46 96 H 10 L 104/67 08/10/16 21:30 91 H 10 L 104/67 08/10/16 21:16 79 89 11 L 18 104/67 08/10/16 21:05 82 18 08/10/16 21:00 84 13 104/67 08/10/16 20:46 85 11 L 104/67 08/10/16 20:30 86 11 L 104/67 08/10/16 20:16 88 14 104/67 08/10/16 20:00 83 9 L 104/67 08/10/16 19:48 99.1 F 08/10/16 19:47 08/10/16 19:46 73 8 L 104/67 08/10/16 19:30 92 H 15 104/67 08/10/16 19:16 89 12 104/67 08/10/16 19:00 85 14 104/67 08/10/16 18:46 89 12 104/67 08/10/16 18:30 91 H 14 104/67 08/10/16 18:16 80 12 104/67 08/10/16 18:00 85 12 104/67 08/10/16 17:46 98 H 15 104/67 08/10/16 17:30 106 H 15 104/67 08/10/16 17:16 102 H 13 104/67 08/10/16 17:00 65 8 L 104/67 08/10/16 16:46 88 13 104/67 08/10/16 16:30 72 13 104/67 08/10/16 16:27 98.2 F 08/10/16 16:16 83 12 104/67 08/10/16 16:00 83 13 104/67 08/10/16 15:46 80 13 104/67 08/10/16 15:30 88 12 104/67 08/10/16 15:16 94 H 16 104/67 08/10/16 15:00 81 12 104/67 08/10/16 14:46 79 8 L 104/67 08/10/16 14:30 80 15 104/67 08/10/16 14:16 88 11 L 104/67 08/10/16 14:00 91 H 13 104/67 08/10/16 13:46 92 H 12 120/70 08/10/16 13:30 115 H 21 120/70 08/10/16 13:16 90 14 120/70 08/10/16 13:00 82 10 L 120/70 08/10/16 12:46 88 15 137/83 08/10/16 12:30 87 16 124/71 08/10/16 12:16 90 13 124/71 08/10/16 12:00 97.4 F L 76 11 L 124/71 08/10/16 11:46 65 12 111/67 08/10/16 11:30 61 10 L 111/67 08/10/16 11:16 84 13 111/67 08/10/16 11:00 76 15 111/67 08/10/16 10:46 74 12 118/72 08/10/16 10:30 63 12 118/72 08/10/16 10:16 75 12 110/79 08/10/16 10:00 89 12 110/79 Pulse Ox 08/11/16 09:23 08/11/16 09:00 99 08/11/16 08:46 100 08/11/16 08:30 100 17 08:16 97 08/11/16 08:00 100 08/11/16 07:46 100 08/11/16 07:30 100 08/11/16 07:16 100 08/11/16 07:00 100 08/11/16 06:46 99 08/11/16 06:30 100 08/11/16 06:16 100 08/11/16 06:00 100 17 05:46 100 17 05:30 100 17 05:16 100 17 05:00 100 17 04:46 100 17 04:30 100 17 04:16 100 17 04:00 100 17 03:46 98 17 03:30 100 17 03:16 100 17 03:00 100 17 02:46 100 1717 02:30 98 17 02:16 99 17 02:00 100 17 01:46 100 17 01:30 100 1717 01:16 100 17 01:00 100 17 00:46 98 1717 00:30 98 17 00:16 98 17 00:00 99 17 23:51 17 23:46 98 1617 23:30 99 17 23:16 98 1617 23:04 98 17 23:00 98 17 22:46 99 17 22:30 100 17 22:16 100 08/10/16 22:00 98 08/10/16 21:46 100 08/10/16 21:30 100 08/10/16 21:16 99 08/10/16 21:05 08/10/16 21:00 100 08/10/16 20:46 99 08/10/16 20:30 100 08/10/16 20:16 100 08/10/16 20:00 100 08/10/16 19:48 08/10/16 19:47 99 08/10/16 19:46 100 08/10/16 19:30 100 08/10/16 19:16 100 08/10/16 19:00 100 08/10/16 18:46 100 08/10/16 18:30 100 08/10/16 18:16 100 08/10/16 18:00 99 08/10/16 17:46 98 08/10/16 17:30 98 08/10/16 17:16 99 08/10/16 17:00 100 08/10/16 16:46 100 08/10/16 16:30 98 08/10/16 16:27 08/10/16 16:16 98 08/10/16 16:00 100 08/10/16 15:46 100 08/10/16 15:30 100 08/10/16 15:16 100 08/10/16 15:00 100 08/10/16 14:46 100 08/10/16 14:30 100 08/10/16 14:16 100 08/10/16 14:00 100 08/10/16 13:46 96 08/10/16 13:30 100 08/10/16 13:16 100 08/10/16 13:00 100 08/10/16 12:46 92 08/10/16 12:30 81 L 08/10/16 12:16 08/10/16 12:00 100 08/10/16 11:46 100 08/10/16 11:30 100 08/10/16 11:16 99 08/10/16 11:00 100 08/10/16 10:46 98 08/10/16 10:30 100 08/10/16 10:16 100 08/10/16 10:00 100 - Physical Examination General: Appears Well HEENT: Positive: PERRL Neck: Positive: neck supple Cardiac: Positive: Reg Rate and Rhythm Lungs: Positive: clear to auscultation Neuro: Positive: Grossly Intact Abdomen: Positive: Soft Skin: Positive: Clear Extremities: Present: Other (LLE-DRESSED). Absent: edema
--- NOTE | 2016-08-11 12:43 | Progress Note ---
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 His foot is well- perfused with a palpable dorsalis pedis pulse. He has significant edema in the lower extremity that should improve with elevation. We will continue to monitor his fasciotomy incisions to see if they are able to be closed prior to discharge. We'll continue heparin drip for now until we decide if he will go back to the operating room. Once the decision is made or he has had this procedure performed will transition him to oral anticoagulation. We'll get him up today with physical therapy. Transfer to the floor later today. We'll adjust his pain medication to better manage his pain. Subjective Date of service: 08/11/16 Principal diagnosis: LLE ischemia Interval history: The patient is complaining that his pain is poorly controlled. He otherwise has no other complaints. Objective - Constitutional Vitals: Vital Signs - 12hr 08/11/16 08/11/16 08/11/16 00:46 01:00 01:16 Temperature Pulse Rate 66 79 77 Pulse Rate [ From Monitor] Respiratory 12 13 10 L Rate Blood Pressure 104/67 104/67 104/67 O2 Sat by Pulse 98 100 100 Oximetry 08/11/16 08/11/16 08/11/16 01:30 01:46 02:00 Temperature Pulse Rate 71 79 85 Pulse Rate [ From Monitor] Respiratory 10 L 11 L 17 Rate Blood Pressure 104/67 104/67 104/67 O2 Sat by Pulse 100 100 100 Oximetry 08/11/16 08/11/16 08/11/16 02:16 02:30 02:46 Temperature Pulse Rate 69 62 70 Pulse Rate [ From Monitor] Respiratory 10 L 10 L 9 L Rate Blood Pressure 104/67 104/67 O2 Sat by Pulse 99 98 100 Oximetry 08/11/16 08/11/16 08/11/16 03:00 03:16 03:30 Temperature 99 F Pulse Rate 64 67 61 Pulse Rate [ From Monitor] Respiratory 9 L 9 L 8 L Rate Blood Pressure 104/67 104/67 104/67 O2 Sat by Pulse 100 100 100 Oximetry 08/11/16 08/11/16 08/11/16 03:46 04:00 04:16 Temperature Pulse Rate 87 67 78 Pulse Rate [ From Monitor] Respiratory 11 L 11 L 12 Rate Blood Pressure 104/67 104/67 104/67 O2 Sat by Pulse 98 100 100 Oximetry 08/11/16 08/11/16 08/11/16 04:30 04:46 05:00 Temperature Pulse Rate 58 L 58 L 58 L Pulse Rate [ From Monitor] Respiratory 11 L 10 L 10 L Rate Blood Pressure 104/67 104/67 104/67 O2 Sat by Pulse 100 100 100 Oximetry 08/11/16 08/11/16 08/11/16 05:16 05:30 05:46 Temperature Pulse Rate 68 61 63 Pulse Rate [ From Monitor] Respiratory 11 L 9 L 11 L Rate Blood Pressure 104/67 104/67 104/67 O2 Sat by Pulse 100 100 100 Oximetry 08/11/16 08/11/16 08/11/16 06:00 06:16 06:30 Temperature Pulse Rate 89 82 77 Pulse Rate [ From Monitor] Respiratory 12 17 9 L Rate Blood Pressure 104/67 149/84 149/84 O2 Sat by Pulse 100 100 100 Oximetry 08/11/16 08/11/16 08/11/16 06:46 07:00 07:16 Temperature Pulse Rate 81 66 75 Pulse Rate [ From Monitor] Respiratory 10 L 7 L 8 L Rate Blood Pressure 149/84 157/81 157/81 O2 Sat by Pulse 99 100 100 Oximetry 08/11/16 08/11/16 08/11/16 07:30 07:46 08:00 Temperature 97.9 F Pulse Rate 68 73 73 Pulse Rate [ 90 From Monitor] Respiratory 9 L 8 L 12 Rate Blood Pressure 157/81 157/81 137/76 O2 Sat by Pulse 100 100 100 Oximetry 08/11/16 08/11/16 08/11/16 08:16 08:30 08:46 Temperature Pulse Rate 91 H 80 85 Pulse Rate [ From Monitor] Respiratory 16 8 L 11 L Rate Blood Pressure 137/76 137/76 137/76 O2 Sat by Pulse 97 100 100 Oximetry 08/11/16 08/11/16 09:00 09:23 Temperature 97.9 F Pulse Rate 89 Pulse Rate [ From Monitor] Respiratory 13 Rate Blood Pressure 142/93 O2 Sat by Pulse 99 Oximetry General appearance: Present: no acute distress - Respiratory Respiratory effort: normal - Cardiovascular Rhythm: regular Extremities: no ischemia, pulses intact (easily palpable left dorsalis pedis pulse) Extremity abnormal: edema (diffuse edema throughout the left lower extremity), other (the dressings were removed, left thigh incision is clean dry and intact with some blistering secondary to the dressing. There is ecchymosis in the lateral thigh as well as in the medial thigh. Both the muscle of the medial as well as lateral incisions are healthy without evidence of infection. There still is some edema in the muscle and both incisions. Ecchymosis of the left foot is present but improving) - Labs CBC & Chem 7: 08/10/16 04:31 08/10/16 04:31
--- NOTE | 2016-08-11 17:46 | Progress Note ---
Assessment and Plan Patient just transfered from ICU. Patient resting on O2. No complaint of chest pain or shortness of breath or cough.O2 saturation 96% on 2 litres O2. - Patient Problems (1) COPD (chronic obstructive pulmonary disease) Current Visit: Yes Status: Acute Qualifiers: COPD type: C Chronic bronchitis type: C Emphysema type: E Plan to address problem: O2 2 litres via nasal canula. Brovanna/budesonide aerosol treatments q 12 hours. Patient is on I/V Heparin. Continue Famotadine. (2) Coronary disease Current Visit: Yes Status: Acute Qualifiers: Coronary Disease-Associated Artery/Lesion type: C [place] vs. transplanted heart: N Associated angina: A Plan to address problem: Management as per cardiology. (3) Ischemia of left lower extremity Current Visit: Yes Status: Acute Plan to address problem: Management as per vascular surgery (4) Peripheral vascular disease Current Visit: Yes Status: Acute Plan to address problem: Management as per vascular surgery. Subjective Date of service: 08/11/16 Principal diagnosis: LLE ischemia Interval history: Patient just transfered from ICU. Patient resting on O2. No complaint of chest pain or shortness of breath or cough.O2 saturation 96% on 2 litres O2. Objective Vital Signs - 12hr 08/11/16 08/11/16 08/11/16 05:46 06:00 06:16 Temperature Pulse Rate 63 89 82 Pulse Rate [ Apical] Pulse Rate [ From Monitor] Respiratory 11 L 12 17 Rate Blood Pressure 104/67 104/67 149/84 Blood Pressure [Left Arm] O2 Sat by Pulse 100 100 100 Oximetry 08/11/16 08/11/16 08/11/16 06:30 06:46 07:00 Temperature Pulse Rate 77 81 66 Pulse Rate [ Apical] Pulse Rate [ From Monitor] Respiratory 9 L 10 L 7 L Rate Blood Pressure 149/84 149/84 157/81 Blood Pressure [Left Arm] O2 Sat by Pulse 100 99 100 Oximetry 08/11/16 08/11/16 08/11/16 07:16 07:30 07:46 Temperature Pulse Rate 75 68 73 Pulse Rate [ Apical] Pulse Rate [ From Monitor] Respiratory 8 L 9 L 8 L Rate Blood Pressure 157/81 157/81 157/81 Blood Pressure [Left Arm] O2 Sat by Pulse 100 100 100 Oximetry 08/11/16 08/11/16 08/11/16 08:00 08:16 08:30 Temperature 97.9 F Pulse Rate 73 91 H 80 Pulse Rate [ Apical] Pulse Rate [ 90 From Monitor] Respiratory 12 16 8 L Rate Blood Pressure 137/76 137/76 137/76 Blood Pressure [Left Arm] O2 Sat by Pulse 100 97 100 Oximetry 08/11/16 08/11/16 08/11/16 08:46 09:00 09:16 Temperature Pulse Rate 85 89 98 H Pulse Rate [ Apical] Pulse Rate [ From Monitor] Respiratory 11 L 13 11 L Rate Blood Pressure 137/76 142/93 142/93 Blood Pressure [Left Arm] O2 Sat by Pulse 100 99 100 Oximetry 08/11/16 08/11/16 08/11/16 09:23 09:30 09:46 Temperature 97.9 F Pulse Rate 90 81 Pulse Rate [ Apical] Pulse Rate [ From Monitor] Respiratory 9 L 13 Rate Blood Pressure 142/93 142/93 Blood Pressure [Left Arm] O2 Sat by Pulse 100 90 Oximetry 08/11/16 08/11/16 08/11/16 10:00 10:16 10:30 Temperature Pulse Rate 81 92 H 67 Pulse Rate [ Apical] Pulse Rate [ From Monitor] Respiratory 12 13 13 Rate Blood Pressure 136/87 136/87 136/87 Blood Pressure [Left Arm] O2 Sat by Pulse 100 94 100 Oximetry 08/11/16 08/11/16 08/11/16 10:46 11:00 11:16 Temperature Pulse Rate 86 70 82 Pulse Rate [ Apical] Pulse Rate [ From Monitor] Respiratory 10 L 9 L 10 L Rate Blood Pressure 136/87 169/101 169/101 Blood Pressure [Left Arm] O2 Sat by Pulse 100 100 100 Oximetry 08/11/16 08/11/16 08/11/16 11:30 11:46 12:00 Temperature 98.0 F Pulse Rate 79 101 H 75 Pulse Rate [ Apical] Pulse Rate [ From Monitor] Respiratory 11 L 12 10 L Rate Blood Pressure 169/101 153/92 151/88 Blood Pressure [Left Arm] O2 Sat by Pulse 100 100 100 Oximetry 08/11/16 08/11/16 08/11/16 12:16 12:30 12:46 Temperature Pulse Rate 80 109 H 96 H Pulse Rate [ Apical] Pulse Rate [ From Monitor] Respiratory 8 L 13 19 Rate Blood Pressure 151/88 151/88 151/88 Blood Pressure [Left Arm] O2 Sat by Pulse 100 100 100 Oximetry 08/11/16 08/11/16 08/11/16 13:00 13:16 13:30 Temperature Pulse Rate 83 94 H 93 H Pulse Rate [ Apical] Pulse Rate [ From Monitor] Respiratory 13 11 L 11 L Rate Blood Pressure 135/87 135/87 135/87 Blood Pressure [Left Arm] O2 Sat by Pulse 100 100 Oximetry 08/11/16 08/11/16 08/11/16 13:46 14:00 14:16 Temperature Pulse Rate 85 87 89 Pulse Rate [ Apical] Pulse Rate [ From Monitor] Respiratory 11 L 13 12 Rate Blood Pressure 135/87 130/80 130/80 Blood Pressure [Left Arm] O2 Sat by Pulse 100 100 100 Oximetry 08/11/16 08/11/16 08/11/16 14:30 16:00 16:56 Temperature 98.0 F Pulse Rate 81 Pulse Rate [ 84 Apical] Pulse Rate [ From Monitor] Respiratory 11 L 18 22 Rate Blood Pressure 130/80 Blood Pressure 150/79 [Left Arm] O2 Sat by Pulse 100 100 Oximetry Constitutional: no acute distress, alert Eyes: non-icteric ENT: oropharynx moist Neck: supple, no lymphadenopathy Effort: normal Ascultation: Bilateral: diminished breath sounds, other (prolonged exp phase) Cardiovascular: regular rate and rhythm Gastrointestinal: normoactive bowel sounds, soft, non-tender, non-distended Integumentary: normal Extremities: no cyanosis, edema (left lower extremity), other (Patient has vascular surgery right loer extremity.) Neurologic: normal mental status, non-focal exam, pupils equal and round, motor strength normal and Psychiatric: mood appropriate, affect normal CBC and BMP: 08/10/16 04:31 08/10/16 04:31 ABG, PT/INR, D-dimer: PT/INR, D-dimer PT 13.2 Sec. (12.2-14.9) 08/08/16 16:49 INR 1.01 (0.87-1.13) 08/08/16 16:49 Abnormal lab findings: Abnormal Labs 08/07/16 08/07/16 08/07/16 15:34 15:34 15:34 WBC Hgb Hct RDW 17.1 H Plt Count Lymph % (Auto) [place] % (Auto) Eos % (Auto) 8.6 H [place] # Eos # 0.9 H Seg Neutrophils % Seg Neutrophils # APTT < 20.0 L Fibrinogen Heparin Anti-Xa Level Sodium Potassium Chloride Carbon Dioxide BUN Glucose Calcium Crossmatch See Detail 08/07/16 08/07/16 08/08/16 21:28 21:28 04:29 WBC 14.2 H 14.8 H Hgb Hct RDW 17.2 H 16.8 H Plt Count Lymph % (Auto) 12.3 L 8.5 L [place] % (Auto) 7.5 H Eos % (Auto) 5.3 H [place] # 0.9 H 1.1 H Eos # 0.7 H 0.5 H Seg Neutrophils % 75.5 H 80.3 H Seg Neutrophils # 10.7 H 11.9 H APTT Fibrinogen Heparin Anti-Xa Level Sodium Potassium Chloride Carbon Dioxide BUN 24 H Glucose Calcium Crossmatch 08/08/16 08/08/16 08/08/16 04:29 04:29 07:16 WBC 15.2 H Hgb Hct RDW 17.3 H Plt Count Lymph % (Auto) 8.7 L [place] % (Auto) 8.2 H Eos % (Auto) [place] # 1.2 H Eos # 0.5 H Seg Neutrophils % 79.4 H Seg Neutrophils # 12.1 H APTT Fibrinogen 186 L Heparin Anti-Xa Level 0.10 L Sodium Potassium Chloride Carbon Dioxide BUN 22 H Glucose 122 H Calcium 8.1 L Crossmatch 08/08/16 08/08/16 08/08/16 07:16 16:49 16:49 WBC Hgb 9.8 L Hct 31.1 L D RDW Plt Count Lymph % (Auto) [place] % (Auto) Eos % (Auto) [place] # Eos # Seg Neutrophils % Seg Neutrophils # APTT 94.0 H* Fibrinogen 189 L Heparin Anti-Xa Level < 0.10 L Sodium Potassium Chloride Carbon Dioxide BUN Glucose Calcium Crossmatch 08/09/16 08/09/16 08/09/16 04:46 06:51 11:02 WBC Hgb 7.2 L Hct 22.4 L D RDW Plt Count Lymph % (Auto) [place] % (Auto) Eos % (Auto) [place] # Eos # Seg Neutrophils % Seg Neutrophils # APTT Fibrinogen Heparin Anti-Xa Level Sodium 135 L 135 L Potassium 6.2 H* D 5.1 H Chloride 109.2 H 107.5 H Carbon Dioxide 14 L D 18 L BUN 28 H 28 H Glucose 113 H 129 H Calcium 6.9 L 7.1 L Crossmatch 08/10/16 08/10/16 04:31 04:31 WBC Hgb 8.0 L Hct 24.1 L RDW Plt Count 94 L Lymph % (Auto) [place] % (Auto) Eos % (Auto) [place] # Eos # Seg Neutrophils % Seg Neutrophils # APTT Fibrinogen Heparin Anti-Xa Level Sodium Potassium Chloride 109.4 H Carbon Dioxide 18 L BUN 30 H Glucose 117 H Calcium 7.0 L Crossmatch
[2016-08-11] MEDS: HEPARIN/ 0.45% NACL-25,000 UNIT/500 ML 25,000 UNIT/500 ML BAG IV SCH (20:55)
[2016-08-11] MEDS: OxyCONTIN PO SCH (21:35)
[2016-08-12] MEDS: DILAUDID IV PRN ×3 (01:06→13:26)
[2016-08-12 05:58] LABS: Hemoglobin 6.1 gm/dl (11.8-15.2)
[2016-08-12 06:01] LABS: Hematocrit 18.6 % (35.5-45.6)
[2016-08-12] MEDS: NEURONTIN PO SCH ×3 (06:20→21:15)
[2016-08-12] MEDS: BROVANA NEBU IH SCH ×2 (08:38→21:30)
[2016-08-12] MEDS: PULMICORT IH SCH ×2 (08:38→21:29)
[2016-08-12] MEDS: PEPCID PO SCH ×2 (09:08→21:15)
[2016-08-12] MEDS: PLAVIX PO SCH (09:08)
[2016-08-12] MEDS: OxyCONTIN PO SCH ×2 (09:09→21:15)
[2016-08-12] MEDS ORDERED: NACL 0.9% 500 ML 500 ML IV ONE ×2 (09:29→14:00)
[2016-08-12] MEDS: PERCOCET 5/325 PO PRN ×3 (11:51→22:28)
--- NOTE | 2016-08-12 12:49 | Progress Note ---
Assessment and Plan - Patient Problems (1) Anemia due to acute blood loss Current Visit: Yes Status: Acute (2) COPD (chronic obstructive pulmonary disease) Current Visit: Yes Status: Acute Qualifiers: COPD type: C Chronic bronchitis type: C Emphysema type: E (3) Compartment syndrome Current Visit: Yes Status: Acute Qualifiers: Compartment syndrome type: C Encounter type: E Compartment syndrome location: C Laterality: L (4) Coronary disease Current Visit: Yes Status: Acute Qualifiers: Coronary Disease-Associated Artery/Lesion type: C [place] vs. transplanted heart: N Associated angina: A (5) Ischemia of left lower extremity Current Visit: Yes Status: Acute (6) Peripheral vascular disease Current Visit: Yes Status: Acute (7) Post-operative state Current Visit: Yes Status: Acute Subjective Date of service: 08/12/16 Principal diagnosis: LLE ischemia Interval history: NO CV C\O,,EATING Objective Vital Signs Temp Pulse Pulse Pulse Pulse Pulse Resp 08/12/16 12:20 98.4 F 94 H 18 08/12/16 12:03 112 H 112 H 18 08/12/16 08:56 108 H 08/12/16 08:48 97.5 F L 105 H 105 H 18 08/12/16 08:35 99 H 08/12/16 05:01 98.2 F 97 H 18 08/12/16 00:32 97.6 F 62 20 08/11/16 22:00 96 H 08/11/16 21:35 95 H 08/11/16 20:32 78 08/11/16 20:24 08/11/16 20:23 85 08/11/16 20:17 98.2 F 95 H 18 08/11/16 20:00 96 H 08/11/16 16:56 22 08/11/16 16:00 98.0 F 92 H 84 15 08/11/16 15:46 74 12 08/11/16 15:30 87 12 08/11/16 15:16 81 11 L 08/11/16 15:00 84 11 L 08/11/16 14:46 78 11 L 08/11/16 14:30 81 11 L 08/11/16 14:16 89 12 08/11/16 14:00 87 13 08/11/16 13:46 85 11 L 08/11/16 13:30 93 H 11 L 08/11/16 13:16 94 H 11 L 08/11/16 13:00 83 13 Resp Resp BP BP Pulse Ox 08/12/16 12:20 130/63 100 08/12/16 12:03 98 08/12/16 08:56 20 08/12/16 08:48 102/65 96 08/12/16 08:35 20 100 08/12/16 05:01 121/68 99 08/12/16 00:32 114/66 100 08/11/16 22:00 08/11/16 21:35 108/68 08/11/16 20:32 18 08/11/16 20:24 100 08/11/16 20:23 16 08/11/16 20:17 108/68 95 08/11/16 20:00 98 08/11/16 16:56 08/11/16 16:00 128/82 150/79 100 08/11/16 15:46 128/82 100 08/11/16 15:30 128/82 98 08/11/16 15:16 128/82 100 08/11/16 15:00 128/82 100 08/11/16 14:46 130/80 100 08/11/16 14:30 130/80 100 08/11/16 14:16 130/80 100 08/11/16 14:00 130/80 100 08/11/16 13:46 135/87 100 08/11/16 13:30 135/87 100 08/11/16 13:16 135/87 08/11/16 13:00 135/87 100 - Physical Examination General: Appears Well HEENT: Positive: PERRL Neck: Positive: neck supple Cardiac: Positive: Reg Rate and Rhythm Lungs: Positive: clear to auscultation Neuro: Positive: Grossly Intact Abdomen: Positive: Soft Skin: Positive: Clear Extremities: Present: Other (LLE-DRESSED). Absent: edema - Labs and Meds CBC 08/12/16 Range/Units 05:36 Hgb 6.1 L (11.8-15.2) gm/dl Hct 18.6 L* (35.5-45.6) % Plt Count 187 (140-440) K/mm3
--- NOTE | 2016-08-12 14:51 | Progress Note ---
Assessment and Plan The patient continues to complain of pain and I have adjusted his pain medications to try to resolve this issue. His hemoglobin has drifted down to 6.1 likely from bleeding on the lateral fasciotomy incision. That has been treated with Surgicel to prevent further bleeding and he is being transfused 3 units of packed red blood cells. I have instructed the patient to keep pillows under his leg and to keep his bed flat to prevent contracture of his left knee. With the decrease in edema of his left calf muscles I believe I may be able to partially if not completely close his fasciotomy incisions. I will make him nothing by mouth after midnight with plan to return to the operating room for closure of the incisions. Additionally the patient had an arterial duplex without evidence of a right popliteal artery aneurysm however he has evidence of a 6 cm abdominal aortic aneurysm. He will require a CTA of his abdomen and pelvis with runoff to evaluate the aneurysm once his incisions and pain have improved. If he does indeed have a 6 cm aneurysm he will require repair of the aneurysm however this will be done after he has healed from his current operation. Subjective Date of service: 08/12/16 Principal diagnosis: LLE ischemia Interval history: The patient continues to complain that his pain is poorly controlled. He denies any other complaints. Objective - Constitutional Vitals: Vital Signs - 12hr 08/12/16 08/12/16 08/12/16 05:01 08:35 08:48 Temperature 98.2 F 97.5 F L Pulse Rate Pulse Rate [ 99 H Anterior Bilateral Throughout] Pulse Rate [ 97 H 105 H Apical] Pulse Rate [ 105 H From Monitor] Respiratory 18 18 Rate Respiratory 20 Rate [Anterior Bilateral Throughout] Blood Pressure Blood Pressure 121/68 102/65 [Left Arm] O2 Sat by Pulse 99 100 96 Oximetry 08/12/16 08/12/16 08/12/16 08:56 12:03 12:20 Temperature 98.4 F Pulse Rate Pulse Rate [ 108 H Anterior Bilateral Throughout] Pulse Rate [ 112 H 94 H Apical] Pulse Rate [ 112 H From Monitor] Respiratory 18 18 Rate Respiratory 20 Rate [Anterior Bilateral Throughout] Blood Pressure Blood Pressure 130/63 [Left Arm] O2 Sat by Pulse 98 100 Oximetry 08/12/16 08/12/16 14:01 14:16 Temperature 98.8 F 98.8 F Pulse Rate 103 H 100 H Pulse Rate [ Anterior Bilateral Throughout] Pulse Rate [ Apical] Pulse Rate [ From Monitor] Respiratory 18 18 Rate Respiratory Rate [Anterior Bilateral Throughout] Blood Pressure 109/64 109/62 Blood Pressure [Left Arm] O2 Sat by Pulse 100 100 Oximetry General appearance: Present: no acute distress - Respiratory Respiratory effort: normal - Cardiovascular Rhythm: regular Extremities: pulses intact (left dorsalis pedis pulse easily palpable), abnormal (the patient's right upper thigh incision is clean dry and intact with some ecchymosis is bilateral fasciotomy incisions are clean without evidence of infection. There was an area of oozing from the upper portion of the lateral incision that was effectively treated with Surgicel. This edema in the muscle has improved) Extremity abnormal: other (slight contraction of the left knee) - Gastrointestinal General gastrointestinal: Present: soft, non-tender, non-distended - Labs CBC & Chem 7: 08/12/16 05:36 08/10/16 04:31 Labs: Abnormal lab results 08/07/16 08/12/16 08/12/16 Range/Units 15:34 05:36 11:18 Hgb 6.1 L (11.8-15.2) gm/dl Hct 18.6 L* (35.5-45.6) % Crossmatch See Detail See Detail
[2016-08-12] MEDS: LOPRESSOR PO SCH ×2 (16:02→21:15)
--- NOTE | 2016-08-12 23:26 | Progress Note ---
Assessment and Plan Patient just transfered from ICU. Patient resting on O2. No complaint of chest pain or shortness of breath or cough.O2 saturation 100% on 2 litres O2. - Patient Problems (1) COPD (chronic obstructive pulmonary disease) Current Visit: Yes Status: Acute Qualifiers: COPD type: C Chronic bronchitis type: C Emphysema type: E Plan to address problem: O2 2 litres via nasal canula. Brovanna/budesonide aerosol treatments q 12 hours. Patient is on I/V Heparin. Continue Famotadine. (2) Coronary disease Current Visit: Yes Status: Acute Qualifiers: Coronary Disease-Associated Artery/Lesion type: C [place] vs. transplanted heart: N Associated angina: A Plan to address problem: Management as per cardiology. (3) Ischemia of left lower extremity Current Visit: Yes Status: Acute Plan to address problem: Management as per vascular surgery (4) Peripheral vascular disease Current Visit: Yes Status: Acute Plan to address problem: Management as per vascular surgery. Subjective Date of service: 08/12/16 Principal diagnosis: LLE ischemia Interval history: Patient just transfered from ICU. Patient resting on O2. No complaint of chest pain or shortness of breath or cough.O2 saturation 100% on 2 litres O2. Objective Vital Signs - 12hr 08/12/16 08/12/16 08/12/16 12:03 12:20 14:01 Temperature 98.4 F 98.8 F Pulse Rate 103 H Pulse Rate [ Anterior Bilateral Throughout] Pulse Rate [ 112 H 94 H Apical] Pulse Rate [ 112 H From Monitor] Respiratory 18 18 18 Rate Respiratory Rate [Anterior Bilateral Throughout] Blood Pressure 109/64 Blood Pressure 130/63 [Left Arm] O2 Sat by Pulse 98 100 100 Oximetry 08/12/16 08/12/16 08/12/16 14:16 14:46 15:16 Temperature 98.8 F 98.8 F 98.2 F Pulse Rate 100 H 91 H 96 H Pulse Rate [ Anterior Bilateral Throughout] Pulse Rate [ Apical] Pulse Rate [ From Monitor] Respiratory 18 18 18 Rate Respiratory Rate [Anterior Bilateral Throughout] Blood Pressure 109/62 114/57 107/54 Blood Pressure [Left Arm] O2 Sat by Pulse 100 100 100 Oximetry 08/12/16 08/12/16 08/12/16 15:46 16:02 16:16 Temperature 98.2 F 98.4 F Pulse Rate 96 H 102 H 91 H Pulse Rate [ Anterior Bilateral Throughout] Pulse Rate [ Apical] Pulse Rate [ From Monitor] Respiratory 18 18 Rate Respiratory Rate [Anterior Bilateral Throughout] Blood Pressure 116/68 102/65 118/65 Blood Pressure [Left Arm] O2 Sat by Pulse 100 100 Oximetry 08/12/16 08/12/16 08/12/16 16:46 17:22 18:36 Temperature 98.4 F 98.5 F 98.5 F Pulse Rate 95 H 88 87 Pulse Rate [ Anterior Bilateral Throughout] Pulse Rate [ Apical] Pulse Rate [ From Monitor] Respiratory 18 18 18 Rate Respiratory Rate [Anterior Bilateral Throughout] Blood Pressure 122/65 118/61 137/65 Blood Pressure [Left Arm] O2 Sat by Pulse 100 100 100 Oximetry 08/12/16 08/12/16 08/12/16 20:45 20:50 21:15 Temperature 98.5 F 98.8 F Pulse Rate 90 90 Pulse Rate [ Anterior Bilateral Throughout] Pulse Rate [ 83 Apical] Pulse Rate [ From Monitor] Respiratory 20 20 Rate Respiratory Rate [Anterior Bilateral Throughout] Blood Pressure 146/71 146/71 Blood Pressure 123/63 [Left Arm] O2 Sat by Pulse 100 Oximetry 08/12/16 08/12/16 08/12/16 21:32 21:34 21:43 Temperature Pulse Rate Pulse Rate [ 81 87 Anterior Bilateral Throughout] Pulse Rate [ Apical] Pulse Rate [ From Monitor] Respiratory Rate Respiratory 18 18 Rate [Anterior Bilateral Throughout] Blood Pressure Blood Pressure [Left Arm] O2 Sat by Pulse 100 Oximetry Constitutional: no acute distress, alert Eyes: non-icteric ENT: oropharynx moist Neck: supple, no lymphadenopathy Effort: normal Ascultation: Bilateral: clear, diminished breath sounds, other (prolonged exp phase) Cardiovascular: regular rate and rhythm Gastrointestinal: normoactive bowel sounds, soft, non-tender, non-distended Integumentary: normal Extremities: no cyanosis, edema (left lower extremity), other (Patient has vascular surgery right loer extremity.) Neurologic: normal mental status, non-focal exam, pupils equal and round, motor strength normal and Psychiatric: mood appropriate, affect normal CBC and BMP: 08/12/16 05:36 08/10/16 04:31 ABG, PT/INR, D-dimer: PT/INR, D-dimer PT 13.2 Sec. (12.2-14.9) 08/08/16 16:49 INR 1.01 (0.87-1.13) 08/08/16 16:49 Abnormal lab findings: Abnormal Labs 08/07/16 08/07/16 08/07/16 15:34 15:34 15:34 WBC Hgb Hct RDW 17.1 H Plt Count Lymph % (Auto) [place] % (Auto) Eos % (Auto) 8.6 H [place] # Eos # 0.9 H Seg Neutrophils % Seg Neutrophils # APTT < 20.0 L Fibrinogen Heparin Anti-Xa Level Sodium Potassium Chloride Carbon Dioxide BUN Glucose Calcium Crossmatch See Detail 08/07/16 08/07/16 08/08/16 21:28 21:28 04:29 WBC 14.2 H 14.8 H Hgb Hct RDW 17.2 H 16.8 H Plt Count Lymph % (Auto) 12.3 L 8.5 L [place] % (Auto) 7.5 H Eos % (Auto) 5.3 H [place] # 0.9 H 1.1 H Eos # 0.7 H 0.5 H Seg Neutrophils % 75.5 H 80.3 H Seg Neutrophils # 10.7 H 11.9 H APTT Fibrinogen Heparin Anti-Xa Level Sodium Potassium Chloride Carbon Dioxide BUN 24 H Glucose Calcium Crossmatch 08/08/16 08/08/16 08/08/16 04:29 04:29 07:16 WBC 15.2 H Hgb Hct RDW 17.3 H Plt Count Lymph % (Auto) 8.7 L [place] % (Auto) 8.2 H Eos % (Auto) [place] # 1.2 H Eos # 0.5 H Seg Neutrophils % 79.4 H Seg Neutrophils # 12.1 H APTT Fibrinogen 186 L Heparin Anti-Xa Level 0.10 L Sodium Potassium Chloride Carbon Dioxide BUN 22 H Glucose 122 H Calcium 8.1 L Crossmatch 08/08/16 08/08/16 08/08/16 07:16 16:49 16:49 WBC Hgb 9.8 L Hct 31.1 L D RDW Plt Count Lymph % (Auto) [place] % (Auto) Eos % (Auto) [place] # Eos # Seg Neutrophils % Seg Neutrophils # APTT 94.0 H* Fibrinogen 189 L Heparin Anti-Xa Level < 0.10 L Sodium Potassium Chloride Carbon Dioxide BUN Glucose Calcium Crossmatch 08/09/16 08/09/1617 04:46 06:51 11:02 WBC Hgb 7.2 L Hct 22.4 L D RDW Plt Count Lymph % (Auto) [place] % (Auto) Eos % (Auto) [place] # Eos # Seg Neutrophils % Seg Neutrophils # APTT Fibrinogen Heparin Anti-Xa Level Sodium 135 L 135 L Potassium 6.2 H* D 5.1 H Chloride 109.2 H 107.5 H Carbon Dioxide 14 L D 18 L BUN 28 H 28 H Glucose 113 H 129 H Calcium 6.9 L 7.1 L Crossmatch 08/10/16 08/10/16 08/12/16 04:31 04:31 05:36 WBC Hgb 8.0 L 6.1 L Hct 24.1 L 18.6 L* RDW Plt Count 94 L Lymph % (Auto) [place] % (Auto) Eos % (Auto) [place] # Eos # Seg Neutrophils % Seg Neutrophils # APTT Fibrinogen Heparin Anti-Xa Level Sodium Potassium Chloride 109.4 H Carbon Dioxide 18 L BUN 30 H Glucose 117 H Calcium 7.0 L Crossmatch 08/12/16 11:18 WBC Hgb Hct RDW Plt Count Lymph % (Auto) [place] % (Auto) Eos % (Auto) [place] # Eos # Seg Neutrophils % Seg Neutrophils # APTT Fibrinogen Heparin Anti-Xa Level Sodium Potassium Chloride Carbon Dioxide BUN Glucose Calcium Crossmatch See Detail
[2016-08-13] MEDS: DILAUDID IV PRN ×7 (06:10→18:59)
[2016-08-13] MEDS: NEURONTIN PO SCH ×3 (06:28→22:33)
--- NOTE | 2016-08-13 07:32 | Vascular Lab Report ---
ABDOMINAL AORTA DUPLEX EXAM: REASON FOR EXAM: Concern for abdominal aortic aneurysm COMMENTS ON THE AORTA: The aorta is patent. No aneurysmal dilatation is noted. Mild atherosclerotic change is identified. The proximal aorta measures up to 1.7 cm. The mid aorta measures up to 2.4 cm. The distal aorta measures up to 2.1 cm. COMMENTS ON THE COMMON ILIAC ARTERIES: The common iliac arteries are patent. No aneurysmal dilatation is noted. Mild atherosclerotic change is identified. The right common iliac artery measures up to 1.68 cm. The left common iliac artery measures up to 1.3 cm. IMPRESSION: No evidence of abdominal aortic aneurysm.
--- NOTE | 2016-08-13 07:34 | Vascular Lab Report ---
RIGHT LOWER EXTREMITY ARTERIAL DUPLEX: REASON FOR EXAM: Rule out popliteal artery aneurysm. COMMENTS ON THE RIGHT: Triphasic waveforms are seen proximally. Triphasic waveforms are seen distally. No significant velocity gradients are identified. No focal significant plaque is identified. Findings are consistent with normal perfusion. Findings are consistent with the ability to heal distal wounds. Distal SFA and popliteal arteries are within normal limits without evidence of aneurysm. IMPRESSION: RIGHT: Essentially normal arterial flow, no evidence of aneurysm.
[2016-08-13] MEDS: BROVANA NEBU IH SCH ×3 (08:28→20:15)
[2016-08-13] MEDS: PULMICORT IH SCH ×3 (08:28→20:15)
[2016-08-13] MEDS: PLAVIX PO SCH (10:18)
[2016-08-13] MEDS: LOPRESSOR PO SCH ×2 (10:18→22:34)
[2016-08-13] MEDS: PEPCID PO SCH ×2 (10:18→22:33)
[2016-08-13] MEDS: OxyCONTIN PO SCH ×2 (10:18→22:34)
[2016-08-13 11:37] LABS: Hematocrit 27.8 % (35.5-45.6); Hemoglobin 9.3 gm/dl (11.8-15.2); Mean Corpuscular HGB Conc 34 % (32-34); Mean Corpuscular Hemoglobin 31 pg (28-32); Mean Corpuscular Volume 93 fl (84-94); Platelet Count 182 K/mm3 (140-440); Red Cell Distribution Width 15.4 % (13.2-15.2)
--- NOTE | 2016-08-13 12:07 | Progress Note ---
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 Subjective Date of service: 08/13/16 Principal diagnosis: LLE ischemia Interval history: Patient denies chest pain and shortness of breath. Objective Vital Signs Temp Pulse Pulse Pulse Pulse Resp Resp 08/13/16 08:50 98.7 F 98 H 18 08/13/16 08:42 80 20 08/13/16 08:27 96 H 20 08/13/16 05:00 97.9 F 78 21 08/13/16 01:59 97 H 08/13/16 00:49 98.6 F 72 22 08/12/16 23:20 98.8 F 81 20 08/12/16 22:35 98.8 F 85 18 08/12/16 22:06 98.5 F 98 H 20 08/12/16 22:00 64 08/12/16 21:43 87 18 08/12/16 21:34 08/12/16 21:32 81 18 08/12/16 21:30 98.6 F 81 18 08/12/16 21:15 90 08/12/16 21:00 98.2 F 84 18 08/12/16 20:50 98.8 F 83 20 08/12/16 20:45 98.5 F 90 20 08/12/16 18:36 98.5 F 87 18 08/12/16 17:22 98.5 F 88 18 08/12/16 16:46 98.4 F 95 H 18 08/12/16 16:16 98.4 F 91 H 18 08/12/16 16:02 102 H 08/12/16 15:46 98.2 F 96 H 18 08/12/16 15:16 98.2 F 96 H 18 08/12/16 14:46 98.8 F 91 H 18 08/12/16 14:16 98.8 F 100 H 18 08/12/16 14:01 98.8 F 103 H 18 08/12/16 12:20 98.4 F 94 H 18 BP BP Pulse Ox 08/13/16 08:50 157/84 98 08/13/16 08:42 06/19/17 08:27 97 08/13/16 05:00 173/85 95 08/13/16 01:59 08/13/16 00:49 135/82 98 08/12/16 23:20 150/98 08/12/16 22:35 142/79 08/12/16 22:06 140/94 08/12/16 22:00 08/12/16 21:43 08/12/16 21:34 100 08/12/16 21:32 08/12/16 21:30 148/78 08/12/16 21:15 146/71 08/12/16 21:00 142/84 08/12/16 20:50 123/63 100 08/12/16 20:45 146/71 08/12/16 18:36 137/65 100 08/12/16 17:22 118/61 100 08/12/16 16:46 122/65 100 08/12/16 16:16 118/65 100 08/12/16 16:02 102/65 08/12/16 15:46 116/68 100 08/12/16 15:16 107/54 100 08/12/16 14:46 114/57 100 08/12/16 14:16 109/62 100 08/12/16 14:01 109/64 100 08/12/16 12:20 130/63 100 - Physical Examination General: No Apparent Distress HEENT: Positive: PERRL Neck: Positive: neck supple Cardiac: Positive: Reg Rate and Rhythm Lungs: Positive: Decreased Breath Sounds Extremities: Present: Other (LLE-DRESSED) - Labs and Meds CBC 08/13/16 Range/Units 11:12 WBC 16.0 H (4.5-11.0) K/mm3 RBC 3.00 L (3.65-5.03) M/mm3 Hgb 9.3 L D (11.8-15.2) gm/dl Hct 27.8 L D (35.5-45.6) % Plt Count 182 (140-440) K/mm3
[2016-08-13] MEDS ORDERED: DIPRIVAN 10 MG/ML IV ONE (12:18)
[2016-08-13] MEDS ORDERED: XYLOCAINE MPF 2% ONE (12:18)
[2016-08-13] MEDS ORDERED: SUBLIMAZE ONE (12:18)
[2016-08-13 12:54] LABS: Anisocytosis 1+; Basophils % (Manual) 0 % (0.0-1.8); Blastocytes % (Manual) 0 %; Polychromasia Few
[2016-08-13 12:55] LABS: Diff Status Complete
[2016-08-13] MEDS ORDERED: ZOFRAN ONE (13:00)
[2016-08-13] MEDS ORDERED: NACL 0.9% 1000 ML 1,000 ML ONE (13:43)
--- NOTE | 2016-08-13 13:49 | Anesthesia Consultation ---
Anesthesia Consult and Med Hx Date of service: 08/13/16 - Airway Anesthetic Teeth Evaluation: Good, Caps ROM Head & Neck: Adequate Mental/Hyoid Distance: Adequate Mallampati Class: Class II Intubation Access Assessment: Probably Good - Pulmonary Exam CTA: Yes - Cardiac Exam Cardiac Exam: RRR - Pre-Operative Health Status ASA Pre-Surgery Classification: ASA3 Proposed Anesthetic Plan: General - Pulmonary Hx Smoking: Yes COPD: Yes - Cardiovascular System Hx Hypertension: Yes Hx Peripheral Vascular Disease: Yes - Hematic Hx Anemia: Yes
--- NOTE | 2016-08-13 13:50 | Anesthesia Day of Surgery ---
Anesthesia Day of Surgery - Day of Surgery Patient Examined: Yes Patient H&P Reviewed: Yes Patient is NPO: Yes
[2016-08-13] MEDS ORDERED: NACL 0.9% 1000 ML 1,000 ML IV SCH (14:00)
[2016-08-13] MEDS ORDERED: ANCEF ONE (14:29)
[2016-08-13] MEDS ORDERED: NACL 0.9% IR ONE (14:39)
--- NOTE | 2016-08-13 16:29 | Operative Report ---
Operative Report Operative Report: Date of Procedure: 08/13/2016 Pre-operative Diagnosis: Open Left Leg Fasciotomy Incisions Post-operative Diagnosis: Same Procedure(s): 1. Complete Closure of Left Leg Medial Fasciotomy Incision With Partial Closure of The Proximal and Distal End of the Lateral Incision 2. Wound VAC Placement on Left Lateral Leg Incision (Wound Measures 20 x 6 x 0.5 cm) Surgeon: Ponce iGpson M.D. Boat Carpenter Mechanic: None Anesthesia: Gen. endotracheal anesthesia EBL: 100 mL Counts: Correct Complications: None Condition: Stable Findings: The medial incision close easily without any tension. The lateral incision has significant amount of muscle swelling and I attempted to close it however the patient's dorsalis pedis pulse became weak so I decided to open up the majority of the incision and place a wound VAC. Specimen: None Indication: The patient is a 61-year-old male who had acute ischemia of his leg secondary to compartment syndrome requiring 4 compartment fasciotomy. I was able to partially close the skin on the medial incision however the remainder of that incision and the lateral incision was left open. He has significant improvement of his edema and is felt that he could have closure of the remainder of the incisions. He was given the risk, benefits, and alternative procedures and consented to procedure. Description of Procedure: The patient was brought to the operating room and laid in supine position. After general endotracheal anesthesia was achieved his left leg was prepped and draped in normal sterile fashion. The skin on the medial wound was loose and easily closed with ness and no evidence of tension on the wound. I then turned my attention to the lateral wall. I used 2-0 Ethibonds in interrupted vertical mattress fashion with ness in between each suture to reapproximate the skin. I initially closed all but approximately 3 cm of the wound however there appeared to be a significant amount of tension and the patient's previously easily palpable dorsalis pedis pulse was now week. I removed the ness and sutures leaving only the proximal 4 cm and distal 4 cm closed. I chose to close portions of the lateral incision as well as the medial incision with Xeroform gauze and fluffs. I then placed a wound VAC sterilely on the remaining open portion of the lateral incision and connected to the wound VAC which had an excellent seal. I wrapped the leg with a loose Kerlix roll and a 4 inch Sudeep bandage. The patient tolerated the procedure well. All sponge, needle, and history counts were correct. The patient was taken to the recovery area in stable condition.
[2016-08-13] MEDS: PERCOCET 5/325 PO PRN ×2 (17:00→23:04)
--- NOTE | 2016-08-13 18:22 | Post Anesthesia Evaluation ---
- Post Anesthesia Evaluation Patient Participated: Yes Airway Patent: Yes Stable Respiratory Function: Yes Nausea/Vomiting: No Temp > 96.8F: Yes Pain Manageable: Yes Adequeate Hydration: Yes Anesthesia Complications: No
--- NOTE | 2016-08-13 19:28 | Progress Note ---
Assessment and Plan Patient resting on room air.. No complaint of chest pain or shortness of breath or cough.O2 saturation 94 % on room air. - Patient Problems (1) COPD (chronic obstructive pulmonary disease) Current Visit: Yes Status: Acute Qualifiers: COPD type: C Chronic bronchitis type: C Emphysema type: E Plan to address problem: O2 2 litres via nasal canula. Brovanna/budesonide aerosol treatments q 12 hours. Patient is on I/V Heparin. Continue [email or web address] (2) Coronary disease Current Visit: Yes Status: Acute Qualifiers: Coronary Disease-Associated Artery/Lesion type: C [place] vs. transplanted heart: N Associated angina: A Plan to address problem: Management as per cardiology. (3) Ischemia of left lower extremity Current Visit: Yes Status: Acute Plan to address problem: Management as per vascular surgery (4) Peripheral vascular disease Current Visit: Yes Status: Acute Plan to address problem: Management as per vascular surgery. Subjective Date of service: 08/13/16 Principal diagnosis: LLE ischemia Interval history: Patient resting on room air.. No complaint of chest pain or shortness of breath or cough.O2 saturation 94 % on room air. Objective Vital Signs - 12hr 08/13/16 08/13/16 08/13/16 08:27 08:42 08:50 Temperature 98.7 F Pulse Rate Pulse Rate [ 96 H 80 Anterior Bilateral Throughout] Pulse Rate [ Apical] Pulse Rate [ 98 H From Monitor] Respiratory 18 Rate Respiratory 20 20 Rate [Anterior Bilateral Throughout] Respiratory Rate [Left Leg] Blood Pressure Blood Pressure 157/84 [Left Arm] O2 Sat by Pulse 97 98 Oximetry 08/13/16 08/13/16 08/13/16 10:00 13:16 13:45 Temperature 98.6 F 98.2 F Pulse Rate 84 86 Pulse Rate [ Anterior Bilateral Throughout] Pulse Rate [ 84 Apical] Pulse Rate [ 75 From Monitor] Respiratory 22 18 20 Rate Respiratory Rate [Anterior Bilateral Throughout] Respiratory 24 Rate [Left Leg] Blood Pressure 151/97 Blood Pressure 133/83 [Left Arm] O2 Sat by Pulse 98 98 Oximetry 08/13/16 08/13/16 08/13/16 15:42 15:45 15:50 Temperature 97.2 F L Pulse Rate 89 95 H 95 H Pulse Rate [ Anterior Bilateral Throughout] Pulse Rate [ Apical] Pulse Rate [ From Monitor] Respiratory 18 12 12 Rate Respiratory Rate [Anterior Bilateral Throughout] Respiratory Rate [Left Leg] Blood Pressure 147/94 143/101 153/94 Blood Pressure [Left Arm] O2 Sat by Pulse 97 95 95 Oximetry 08/13/16 08/13/16 08/13/16 15:55 16:00 16:08 Temperature Pulse Rate 104 H 95 H Pulse Rate [ Anterior Bilateral Throughout] Pulse Rate [ Apical] Pulse Rate [ From Monitor] Respiratory 12 12 14 Rate Respiratory Rate [Anterior Bilateral Throughout] Respiratory Rate [Left Leg] Blood Pressure 165/84 158/86 Blood Pressure [Left Arm] O2 Sat by Pulse 99 98 Oximetry 08/13/16 08/13/16 08/13/16 16:15 16:25 16:30 Temperature Pulse Rate 95 H 99 H Pulse Rate [ Anterior Bilateral Throughout] Pulse Rate [ Apical] Pulse Rate [ From Monitor] Respiratory 14 14 12 Rate Respiratory Rate [Anterior Bilateral Throughout] Respiratory Rate [Left Leg] Blood Pressure 150/99 127/97 Blood Pressure [Left Arm] O2 Sat by Pulse 100 100 Oximetry 08/13/16 08/13/16 08/13/16 16:40 16:45 16:55 Temperature 98 F Pulse Rate 99 H Pulse Rate [ Anterior Bilateral Throughout] Pulse Rate [ Apical] Pulse Rate [ From Monitor] Respiratory 12 12 12 Rate Respiratory Rate [Anterior Bilateral Throughout] Respiratory Rate [Left Leg] Blood Pressure 135/80 Blood Pressure [Left Arm] O2 Sat by Pulse 100 Oximetry 08/13/16 08/13/16 08/13/16 17:00 17:15 17:30 Temperature Pulse Rate 96 H 97 H 102 H Pulse Rate [ Anterior Bilateral Throughout] Pulse Rate [ Apical] Pulse Rate [ From Monitor] Respiratory 12 15 14 Rate Respiratory Rate [Anterior Bilateral Throughout] Respiratory Rate [Left Leg] Blood Pressure 132/82 132/84 105/64 Blood Pressure [Left Arm] O2 Sat by Pulse 99 98 100 Oximetry Constitutional: no acute distress, alert Eyes: non-icteric ENT: oropharynx moist Neck: supple, no lymphadenopathy Effort: normal Ascultation: Bilateral: diminished breath sounds, other (prolonged exp phase) Cardiovascular: regular rate and rhythm Gastrointestinal: normoactive bowel sounds, soft, non-tender, non-distended Integumentary: normal Extremities: no cyanosis, edema (left lower extremity), other (Patient has vascular surgery right loer extremity.) Neurologic: normal mental status, non-focal exam, pupils equal and round, motor strength normal and Psychiatric: mood appropriate, affect normal CBC and BMP: 08/13/16 11:12 08/10/16 04:31 ABG, PT/INR, D-dimer: PT/INR, D-dimer PT 13.2 Sec. (12.2-14.9) 08/08/16 16:49 INR 1.01 (0.87-1.13) 08/08/16 16:49 Abnormal lab findings: Abnormal Labs 08/07/16 08/07/16 08/07/16 15:34 15:34 15:34 WBC RBC Hgb Hct RDW 17.1 H Plt Count Lymph % (Auto) [place] % (Auto) Eos % (Auto) 8.6 H [place] # Eos # 0.9 H Seg Neutrophils % Seg Neuts % (Manual) Lymphocytes % (Manual) Seg Neutrophils # Seg Neutrophils # Man Lymphocytes # (Manual) Eosinophils # (Manual) APTT < 20.0 L Fibrinogen Heparin Anti-Xa Level Sodium Potassium Chloride Carbon Dioxide BUN Glucose Calcium Crossmatch See Detail 08/07/16 08/07/16 08/08/16 21:28 21:28 04:29 WBC 14.2 H 14.8 H RBC Hgb Hct RDW 17.2 H 16.8 H Plt Count Lymph % (Auto) 12.3 L 8.5 L [place] % (Auto) 7.5 H Eos % (Auto) 5.3 H [place] # 0.9 H 1.1 H Eos # 0.7 H 0.5 H Seg Neutrophils % 75.5 H 80.3 H Seg Neuts % (Manual) Lymphocytes % (Manual) Seg Neutrophils # 10.7 H 11.9 H Seg Neutrophils # Man Lymphocytes # (Manual) Eosinophils # (Manual) APTT Fibrinogen Heparin Anti-Xa Level Sodium Potassium Chloride Carbon Dioxide BUN 24 H Glucose Calcium Crossmatch 08/08/16 08/08/16 08/08/16 04:29 04:29 07:16 WBC 15.2 H RBC Hgb Hct RDW 17.3 H Plt Count Lymph % (Auto) 8.7 L [place] % (Auto) 8.2 H Eos % (Auto) [place] # 1.2 H Eos # 0.5 H Seg Neutrophils % 79.4 H Seg Neuts % (Manual) Lymphocytes % (Manual) Seg Neutrophils # 12.1 H Seg Neutrophils # Man Lymphocytes # (Manual) Eosinophils # (Manual) APTT Fibrinogen 186 L Heparin Anti-Xa Level 0.10 L Sodium Potassium Chloride Carbon Dioxide BUN 22 H Glucose 122 H Calcium 8.1 L Crossmatch 08/08/16 08/08/16 08/08/16 07:16 16:49 16:49 WBC RBC Hgb 9.8 L Hct 31.1 L D RDW Plt Count Lymph % (Auto) [place] % (Auto) Eos % (Auto) [place] # Eos # Seg Neutrophils % Seg Neuts % (Manual) Lymphocytes % (Manual) Seg Neutrophils # Seg Neutrophils # Man Lymphocytes # (Manual) Eosinophils # (Manual) APTT 94.0 H* Fibrinogen 189 L Heparin Anti-Xa Level < 0.10 L Sodium Potassium Chloride Carbon Dioxide BUN Glucose Calcium Crossmatch 08/09/16 08/09/16 08/09/16 04:46 06:51 11:02 WBC RBC Hgb 7.2 L Hct 22.4 L D RDW Plt Count Lymph % (Auto) [place] % (Auto) Eos % (Auto) [place] # Eos # Seg Neutrophils % Seg Neuts % (Manual) Lymphocytes % (Manual) Seg Neutrophils # Seg Neutrophils # Man Lymphocytes # (Manual) Eosinophils # (Manual) APTT Fibrinogen Heparin Anti-Xa Level Sodium 135 L 135 L Potassium 6.2 H* D 5.1 H Chloride 109.2 H 107.5 H Carbon Dioxide 14 L D 18 L BUN 28 H 28 H Glucose 113 H 129 H Calcium 6.9 L 7.1 L Crossmatch 08/10/16 08/10/16 08/12/16 04:31 04:31 05:36 WBC RBC Hgb 8.0 L 6.1 L Hct 24.1 L 18.6 L* RDW Plt Count 94 L Lymph % (Auto) [place] % (Auto) Eos % (Auto) [place] # Eos # Seg Neutrophils % Seg Neuts % (Manual) Lymphocytes % (Manual) Seg Neutrophils # Seg Neutrophils # Man Lymphocytes # (Manual) Eosinophils # (Manual) APTT Fibrinogen Heparin Anti-Xa Level Sodium Potassium Chloride 109.4 H Carbon Dioxide 18 L BUN 30 H Glucose 117 H Calcium 7.0 L Crossmatch 08/12/16 08/13/16 08/13/16 11:18 08:38 11:12 WBC 16.0 H RBC 3.00 L Hgb 9.3 L D Hct 27.8 L D RDW 15.4 H Plt Count Lymph % (Auto) [place] % (Auto) Eos % (Auto) [place] # Eos # Seg Neutrophils % Seg Neuts % (Manual) 91.0 H Lymphocytes % (Manual) 1.0 L Seg Neutrophils # Seg Neutrophils # Man 14.6 H Lymphocytes # (Manual) 0.2 L Eosinophils # (Manual) 0.6 H APTT Fibrinogen Heparin Anti-Xa Level 0.17 L Sodium Potassium Chloride Carbon Dioxide BUN Glucose Calcium Crossmatch See Detail
[2016-08-14] MEDS: PERCOCET 5/325 PO PRN ×3 (04:14→23:21)
[2016-08-14] MEDS: NEURONTIN PO SCH ×3 (06:46→21:47)
[2016-08-14 07:03] LABS: Hematocrit 22.8 % (35.5-45.6); Hemoglobin 7.6 gm/dl (11.8-15.2)
[2016-08-14] MEDS ORDERED: NACL ONE (08:35)
[2016-08-14] MEDS: BROVANA NEBU IH SCH ×2 (09:20→19:46)
[2016-08-14] MEDS: PULMICORT IH SCH ×2 (09:20→19:46)
[2016-08-14] MEDS: LOPRESSOR PO SCH ×2 (10:23→21:49)
[2016-08-14] MEDS: PEPCID PO SCH ×2 (10:24→21:48)
[2016-08-14] MEDS: OxyCONTIN PO SCH ×2 (10:24→21:47)
[2016-08-14] MEDS: PLAVIX PO SCH (10:25)
--- NOTE | 2016-08-14 11:36 | Progress Note ---
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 Subjective Date of service: 08/14/16 Principal diagnosis: LLE ischemia Interval history: Patient denies chest pain and shortness of breath. Noted acute drop in HCT today post vascular procedure done yesterday. Objective Vital Signs Temp Pulse Pulse Pulse Resp Resp BP 08/14/16 10:24 20 08/14/16 10:00 55 L 20 08/14/16 07:25 98.0 F 79 12 08/14/16 03:45 97.8 F 72 20 08/14/16 02:26 95 H 08/14/16 00:35 98.7 F 66 18 08/13/16 22:00 54 L 08/13/16 20:41 98.1 F 88 18 08/13/16 17:30 102 H 14 105/64 08/13/16 17:15 97 H 15 132/84 08/13/16 17:00 96 H 12 132/82 08/13/16 16:55 12 08/13/16 16:45 98 F 99 H 12 135/80 08/13/16 16:40 12 08/13/16 16:30 99 H 12 127/97 08/13/16 16:25 14 08/13/16 16:15 95 H 14 150/99 08/13/16 16:08 14 08/13/16 16:00 95 H 12 158/86 08/13/16 15:55 104 H 12 165/84 08/13/16 15:50 95 H 12 153/94 08/13/16 15:45 95 H 12 143/101 08/13/16 15:42 97.2 F L 89 18 147/94 08/13/16 13:45 98.2 F 86 20 151/97 08/13/16 13:16 98.6 F 75 18 BP BP Pulse Ox 08/14/16 10:24 08/14/16 10:00 08/14/16 07:25 145/85 100 08/14/16 03:45 119/74 98 08/14/16 02:26 08/14/16 00:35 115/74 97 06/19/17 22:00 08/13/16 20:41 109/65 94 08/13/16 17:30 100 08/13/16 17:15 98 08/13/16 17:00 99 08/13/16 16:55 08/13/16 16:45 100 08/13/16 16:40 08/13/16 16:30 100 08/13/16 16:25 08/13/16 16:15 100 08/13/16 16:08 08/13/16 16:00 98 08/13/16 15:55 99 08/13/16 15:50 95 08/13/16 15:45 95 08/13/16 15:42 97 08/13/16 13:45 98 08/13/16 13:16 133/83 98 - Physical Examination General: No Apparent Distress HEENT: Positive: PERRL Neck: Positive: trachea midline Cardiac: Positive: Reg Rate and Rhythm Neuro: Positive: Grossly Intact - Labs and Meds CBC 08/13/16 08/14/16 Range/Units 11:12 06:01 WBC 16.0 H (4.5-11.0) K/mm3 RBC 3.00 L (3.65-5.03) M/mm3 Hgb 9.3 L D 7.6 L (11.8-15.2) gm/dl Hct 27.8 L D 22.8 L (35.5-45.6) % Plt Count 182 185 (140-440) K/mm3
[2016-08-14] MEDS: DILAUDID IV PRN (13:27)
--- NOTE | 2016-08-14 18:04 | Progress Note ---
Assessment and Plan Continue to work with physical therapy. Discharge planning for acute rehabilitation versus home health physical therapy (depending upon the patient's ambulatory status at that point). Discharge plan for wound VAC in progress. - Patient Problems (1) Ischemia of left lower extremity Current Visit: Yes Status: Acute (2) Compartment syndrome Current Visit: Yes Status: Acute Qualifiers: Compartment syndrome type: C Encounter type: E Compartment syndrome location: C Laterality: L Subjective Date of service: 08/14/16 Principal diagnosis: LLE ischemia Interval history: Patient is awake and alert without specific complaint at present. His pain control is improving. He worked with physical therapy today and was able to ambulate with a walker and assistance into the hallway. Objective - Constitutional Vitals: Vital Signs - 12hr 08/14/16 08/14/16 08/14/16 07:25 10:00 10:24 Temperature 98.0 F Pulse Rate 55 L Pulse Rate [ 79 Right Radial] Respiratory 12 20 Rate Respiratory 20 Rate [Left Leg] Blood Pressure 145/85 [Right Radial Artery] O2 Sat by Pulse 100 Oximetry 08/14/16 08/14/16 13:27 17:30 Temperature Pulse Rate Pulse Rate [ Right Radial] Respiratory 20 20 Rate Respiratory Rate [Left Leg] Blood Pressure [Right Radial Artery] O2 Sat by Pulse Oximetry General appearance: Present: no acute distress - EENT Eyes: EOM intact ENT: hearing intact - Neck Neck: supple - Respiratory Respiratory effort: normal Extremities: no ischemia, normal temperature, abnormal (wound VAC in place) - Neurologic Neurologic: other (difficulty moving foot due to discomfort, but is able to dorsiflex and plantarflex his toes on the left foot) - Psychiatric Psychiatric: appropriate mood/affect, intact judgment & insight, cooperative - Labs CBC & Chem 7: 08/14/16 06:01 08/10/16 04:31 Labs: Abnormal lab results 08/14/16 Range/Units 06:01 Hgb 7.6 L (11.8-15.2) gm/dl Hct 22.8 L (35.5-45.6) %
--- NOTE | 2016-08-14 19:15 | Progress Note ---
Assessment and Plan Patient resting on room air.. No complaint of chest pain or shortness of breath or cough.O2 saturation 99 % on room air. - Patient Problems (1) COPD (chronic obstructive pulmonary disease) Current Visit: Yes Status: Acute Qualifiers: COPD type: C Chronic bronchitis type: C Emphysema type: E Plan to address problem: O2 2 litres via nasal canula. Brovanna/budesonide aerosol treatments q 12 hours. Patient is on I/V Heparin. Continue [email or web address] (2) Coronary disease Current Visit: Yes Status: Acute Qualifiers: Coronary Disease-Associated Artery/Lesion type: C [place] vs. transplanted heart: N Associated angina: A Plan to address problem: Management as per cardiology. (3) Ischemia of left lower extremity Current Visit: Yes Status: Acute Plan to address problem: Management as per vascular surgery (4) Peripheral vascular disease Current Visit: Yes Status: Acute Plan to address problem: Management as per vascular surgery. Subjective Date of service: 08/14/16 Principal diagnosis: LLE ischemia Interval history: Patient resting on room air.. No complaint of chest pain or shortness of breath or cough.O2 saturation 99 % on room air. Objective Vital Signs - 12hr 08/14/16 08/14/16 08/14/16 07:25 10:00 10:24 Temperature 98.0 F Pulse Rate 55 L Pulse Rate [ 79 Right Radial] Respiratory 12 20 Rate Respiratory 20 Rate [Left Leg] Blood Pressure 145/85 [Right Radial Artery] O2 Sat by Pulse 100 Oximetry 08/14/16 08/14/16 08/14/16 13:27 17:30 17:59 Temperature 98.6 F Pulse Rate Pulse Rate [ 73 Right Radial] Respiratory 20 20 12 Rate Respiratory Rate [Left Leg] Blood Pressure 123/75 [Right Radial Artery] O2 Sat by Pulse 99 Oximetry Constitutional: no acute distress, alert Eyes: non-icteric ENT: oropharynx moist Neck: supple, no lymphadenopathy Effort: normal Ascultation: Bilateral: diminished breath sounds, other (prolonged exp phase) Cardiovascular: regular rate and rhythm Gastrointestinal: normoactive bowel sounds, soft, non-tender, non-distended Integumentary: normal Extremities: no cyanosis, edema (left lower extremity), other (Patient has vascular surgery right loer extremity.) Neurologic: normal mental status, non-focal exam, pupils equal and round, motor strength normal and Psychiatric: mood appropriate, affect normal CBC and BMP: 08/14/16 06:01 08/10/16 04:31 ABG, PT/INR, D-dimer: PT/INR, D-dimer PT 13.2 Sec. (12.2-14.9) 08/08/16 16:49 INR 1.01 (0.87-1.13) 08/08/16 16:49 Abnormal lab findings: Abnormal Labs 08/07/16 08/07/16 08/07/16 15:34 15:34 15:34 WBC RBC Hgb Hct RDW 17.1 H Plt Count Lymph % (Auto) [place] % (Auto) Eos % (Auto) 8.6 H [place] # Eos # 0.9 H Seg Neutrophils % Seg Neuts % (Manual) Lymphocytes % (Manual) Seg Neutrophils # Seg Neutrophils # Man Lymphocytes # (Manual) Eosinophils # (Manual) APTT < 20.0 L Fibrinogen Heparin Anti-Xa Level Sodium Potassium Chloride Carbon Dioxide BUN Glucose Calcium Crossmatch See Detail 08/07/16 08/07/16 08/08/16 21:28 21:28 04:29 WBC 14.2 H 14.8 H RBC Hgb Hct RDW 17.2 H 16.8 H Plt Count Lymph % (Auto) 12.3 L 8.5 L [place] % (Auto) 7.5 H Eos % (Auto) 5.3 H [place] # 0.9 H 1.1 H Eos # 0.7 H 0.5 H Seg Neutrophils % 75.5 H 80.3 H Seg Neuts % (Manual) Lymphocytes % (Manual) Seg Neutrophils # 10.7 H 11.9 H Seg Neutrophils # Man Lymphocytes # (Manual) Eosinophils # (Manual) APTT Fibrinogen Heparin Anti-Xa Level Sodium Potassium Chloride Carbon Dioxide BUN 24 H Glucose Calcium Crossmatch 08/08/16 08/08/16 08/08/16 04:29 04:29 07:16 WBC 15.2 H RBC Hgb Hct RDW 17.3 H Plt Count Lymph % (Auto) 8.7 L [place] % (Auto) 8.2 H Eos % (Auto) [place] # 1.2 H Eos # 0.5 H Seg Neutrophils % 79.4 H Seg Neuts % (Manual) Lymphocytes % (Manual) Seg Neutrophils # 12.1 H Seg Neutrophils # Man Lymphocytes # (Manual) Eosinophils # (Manual) APTT Fibrinogen 186 L Heparin Anti-Xa Level 0.10 L Sodium Potassium Chloride Carbon Dioxide BUN 22 H Glucose 122 H Calcium 8.1 L Crossmatch 08/08/16 08/08/16 08/08/16 07:16 16:49 16:49 WBC RBC Hgb 9.8 L Hct 31.1 L D RDW Plt Count Lymph % (Auto) [place] % (Auto) Eos % (Auto) [place] # Eos # Seg Neutrophils % Seg Neuts % (Manual) Lymphocytes % (Manual) Seg Neutrophils # Seg Neutrophils # Man Lymphocytes # (Manual) Eosinophils # (Manual) APTT 94.0 H* Fibrinogen 189 L Heparin Anti-Xa Level < 0.10 L Sodium Potassium Chloride Carbon Dioxide BUN Glucose Calcium Crossmatch 08/09/16 08/09/16 08/09/16 04:46 06:51 11:02 WBC RBC Hgb 7.2 L Hct 22.4 L D RDW Plt Count Lymph % (Auto) [place] % (Auto) Eos % (Auto) [place] # Eos # Seg Neutrophils % Seg Neuts % (Manual) Lymphocytes % (Manual) Seg Neutrophils # Seg Neutrophils # Man Lymphocytes # (Manual) Eosinophils # (Manual) APTT Fibrinogen Heparin Anti-Xa Level Sodium 135 L 135 L Potassium 6.2 H* D 5.1 H Chloride 109.2 H 107.5 H Carbon Dioxide 14 L D 18 L BUN 28 H 28 H Glucose 113 H 129 H Calcium 6.9 L 7.1 L Crossmatch 08/10/16 08/10/16 08/12/16 04:31 04:31 05:36 WBC RBC Hgb 8.0 L 6.1 L Hct 24.1 L 18.6 L* RDW Plt Count 94 L Lymph % (Auto) [place] % (Auto) Eos % (Auto) [place] # Eos # Seg Neutrophils % Seg Neuts % (Manual) Lymphocytes % (Manual) Seg Neutrophils # Seg Neutrophils # Man Lymphocytes # (Manual) Eosinophils # (Manual) APTT Fibrinogen Heparin Anti-Xa Level Sodium Potassium Chloride 109.4 H Carbon Dioxide 18 L BUN 30 H Glucose 117 H Calcium 7.0 L Crossmatch 08/12/16 08/13/16 08/13/16 11:18 08:38 11:12 WBC 16.0 H RBC 3.00 L Hgb 9.3 L D Hct 27.8 L D RDW 15.4 H Plt Count Lymph % (Auto) [place] % (Auto) Eos % (Auto) [place] # Eos # Seg Neutrophils % Seg Neuts % (Manual) 91.0 H Lymphocytes % (Manual) 1.0 L Seg Neutrophils # Seg Neutrophils # Man 14.6 H Lymphocytes # (Manual) 0.2 L Eosinophils # (Manual) 0.6 H APTT Fibrinogen Heparin Anti-Xa Level 0.17 L Sodium Potassium Chloride Carbon Dioxide BUN Glucose Calcium Crossmatch See Detail 08/14/16 06:01 WBC RBC Hgb 7.6 L Hct 22.8 L RDW Plt Count Lymph % (Auto) [place] % (Auto) Eos % (Auto) [place] # Eos # Seg Neutrophils % Seg Neuts % (Manual) Lymphocytes % (Manual) Seg Neutrophils # Seg Neutrophils # Man Lymphocytes # (Manual) Eosinophils # (Manual) APTT Fibrinogen Heparin Anti-Xa Level Sodium Potassium Chloride Carbon Dioxide BUN Glucose Calcium Crossmatch
[2016-08-15] MEDS: NEURONTIN PO SCH ×3 (05:07→22:23)
[2016-08-15] MEDS: PERCOCET 5/325 PO PRN ×3 (05:07→19:44)
[2016-08-15] MEDS: PULMICORT IH SCH ×2 (07:31→20:45)
[2016-08-15] MEDS: BROVANA NEBU IH SCH ×2 (07:31→20:45)
--- NOTE | 2016-08-15 10:23 | Cat Scan Report ---
CTA abdomen, pelvis, lower extremities: Abdominal aortic aneurysm evaluation. Following IV contrast administration transverse images were obtained from the low chest to the feet with coronal and sagittal 2-D reformatted images as well as a 3-D MIP image. The visualized lung bases are unremarkable. There is diffuse colonic diverticulosis. Severe degenerative changes are present at the L3-4 level. The supra-renal abdominal aorta is unremarkable. There is patency of the celiac, SMA, and single bilateral renal arteries. The distal abdominal aorta is aneurysmal and is somewhat elongated contour in the transverse dimension with a maximum size of 5 cm. The AP dimension is 2.6 cm. The opacified lumen measures 2.4 cm. The aneurysm extends into both common iliac arteries. The maximum size on the left is 2 cm and on the right is 2.5 cm some of which represents mural thrombus. The external iliac and common femoral arteries are bilaterally patent as are the femoral bifurcations: Right lower extremity: The SFA, popliteal, and common peroneal arteries are patent as is the trifurcation. There is continuously patent three-vessel runoff to the foot. Left lower extremity: The SFA is occluded at approximately the adductor canal with reconstitution of its distal portion. The popliteal is patent. There is mild aneurysmal dilatation of the peroneal artery at its trifurcation. The trifurcation is patent. There is continuous runoff of the anterior tibial artery and peroneal arteries but the posterior tibial artery is occluded in its midportion. Impressions: 1. Distal abdominal aortic aneurysm with aneurysmal dilatation of both YUKI's. 2. Three-vessel distal right runoff; two-vessel distal left runoff. 3. Diverticulosis and degenerative L3-4 changes.
--- NOTE | 2016-08-15 10:51 | XRay Report ---
CHEST 2 VIEWS INDICATION: COPD. COMPARISON: None similar. FINDINGS: PA and lateral chest radiographs demonstrate normal cardiomediastinal silhouette. Clear, well-expanded lungs. Intact bones. CONCLUSION: No acute disease in the chest. Thank you for the opportunity to participate in this patient's care.
[2016-08-15 12:18] LABS: Hematocrit 24.4 % (35.5-45.6); Mean Corpuscular HGB Conc 33 % (32-34); Mean Corpuscular Hemoglobin 31 pg (28-32); Mean Corpuscular Volume 94 fl (84-94); Platelet Count 263 K/mm3 (140-440); Red Blood Count 2.59 M/mm3 (3.65-5.03); Red Cell Distribution Width 16.2 % (13.2-15.2); White Blood Count 13.3 K/mm3 (4.5-11.0)
--- NOTE | 2016-08-15 13:04 | Progress Note ---
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 Subjective Date of service: 08/15/16 Principal diagnosis: LLE ischemia Interval history: Patient denies chest pain and shortness of breath. Objective Vital Signs Temp Pulse Pulse Pulse Pulse Pulse Resp 08/15/16 10:37 98.6 F 63 12 08/15/16 07:43 65 08/15/16 07:33 64 08/15/16 04:10 98.0 F 85 18 08/15/16 00:57 97.6 F 73 20 08/14/16 21:01 98.3 F 88 20 08/14/16 19:50 85 72 08/14/16 19:48 08/14/16 17:59 98.6 F 73 12 08/14/16 17:30 20 08/14/16 13:27 20 Resp Resp BP BP BP Pulse Ox 08/15/16 10:37 115/77 64 L 08/15/16 07:43 18 08/15/16 07:33 18 97 08/15/16 04:10 157/84 98 08/15/16 00:57 124/74 98 08/14/16 21:01 119/72 98 08/14/16 19:50 18 20 08/14/16 19:48 97 08/14/16 17:59 123/75 99 08/14/16 17:30 08/14/16 13:27 - Physical Examination General: No Apparent Distress HEENT: Positive: PERRL Neck: Positive: trachea midline Cardiac: Positive: Reg Rate and Rhythm Extremities: Present: Other (LLE wound vac) - Labs and Meds CBC 08/15/16 Range/Units 12:01 WBC 13.3 H (4.5-11.0) K/mm3 RBC 2.59 L (3.65-5.03) M/mm3 Hgb 8.0 L (11.8-15.2) gm/dl Hct 24.4 L (35.5-45.6) % Plt Count 263 (140-440) K/mm3
--- NOTE | 2016-08-15 15:04 | Event Note ---
Date: 08/15/16 Mr. Ramírez was seen and examined. His hemoglobin is currently stable. As of this afternoon his hemoglobin was 8, as compared to 7.6 yesterday. He has not required packed red cell transfusion since the . Overall, his level of pain in his left thigh and calf are decreased compared with yesterday. Follow-up duplex sonography of his leg was performed to further investigate findings suspicious for pseudoaneurysms last extravasation on CT. On ultrasound , no evidence of pseudoaneurysm was found. There was a hematoma seen in the soft tissues, but no color evidence of active extravasation. Overall, his left thigh continues to feel firm, there is mild oozing from the staple line. A wound VAC is in place in the calf region, and it is holding appropriate suction. There is extensive ecchymosis along the left flank, but this is nontender, and the patient is not complaining of pain in this region. Based on his labs and exam, I don't think an acute intervention is required at this time. We will continue to follow him.
[2016-08-15] MEDS: LOPRESSOR PO SCH ×2 (15:23→22:23)
[2016-08-15] MEDS: OxyCONTIN PO SCH ×2 (15:24→22:23)
[2016-08-15] MEDS: PEPCID PO SCH ×2 (15:24→22:23)
[2016-08-15] MEDS: PLAVIX PO SCH (15:25)
--- NOTE | 2016-08-15 18:33 | Progress Note ---
Assessment and Plan Patient resting on room air.. No complaint of chest pain or shortness of breath or cough.O2 saturation 96 % on room air. - Patient Problems (1) COPD (chronic obstructive pulmonary disease) Current Visit: Yes Status: Acute Qualifiers: COPD type: C Chronic bronchitis type: C Emphysema type: E Plan to address problem: O2 2 litres via nasal canula. Brovanna/budesonide aerosol treatments q 12 hours. Patient is on I/V Heparin. Continue [email or web address] (2) Coronary disease Current Visit: Yes Status: Acute Qualifiers: Coronary Disease-Associated Artery/Lesion type: C [place] vs. transplanted heart: N Associated angina: A Plan to address problem: Management as per cardiology. (3) Ischemia of left lower extremity Current Visit: Yes Status: Acute Plan to address problem: Management as per vascular surgery (4) Peripheral vascular disease Current Visit: Yes Status: Acute Plan to address problem: Management as per vascular surgery. Subjective Date of service: 08/15/16 Principal diagnosis: LLE ischemia Interval history: Patient resting on room air.. No complaint of chest pain or shortness of breath or cough.O2 saturation 96 % on room air. Objective Vital Signs - 12hr 08/15/16 08/15/16 08/15/16 07:33 07:43 10:00 Temperature Pulse Rate 68 Pulse Rate [ 64 65 Anterior Upper Lobe] Pulse Rate [ 68 Left Radial] Respiratory 20 Rate Respiratory 18 18 Rate [Anterior Upper Lobe] Respiratory 20 Rate [Left Leg] Blood Pressure [Left] O2 Sat by Pulse 97 99 Oximetry 08/15/16 08/15/16 08/15/16 10:37 15:23 15:24 Temperature 98.6 F Pulse Rate 63 Pulse Rate [ Anterior Upper Lobe] Pulse Rate [ Left Radial] Respiratory 12 20 20 Rate Respiratory Rate [Anterior Upper Lobe] Respiratory Rate [Left Leg] Blood Pressure 115/77 [Left] O2 Sat by Pulse 64 L Oximetry 08/15/16 08/15/16 16:24 18:18 Temperature 98.6 F Pulse Rate 68 Pulse Rate [ Anterior Upper Lobe] Pulse Rate [ Left Radial] Respiratory 18 12 Rate Respiratory Rate [Anterior Upper Lobe] Respiratory Rate [Left Leg] Blood Pressure 116/72 [Left] O2 Sat by Pulse 96 Oximetry Constitutional: no acute distress, alert Eyes: non-icteric ENT: oropharynx moist Neck: supple, no lymphadenopathy Effort: normal Ascultation: Bilateral: diminished breath sounds, other (prolonged exp phase) Cardiovascular: regular rate and rhythm Gastrointestinal: normoactive bowel sounds, soft, non-tender, non-distended Integumentary: normal Extremities: no cyanosis, edema (left lower extremity), other (Patient has vascular surgery right loer extremity.) Neurologic: normal mental status, non-focal exam, pupils equal and round, motor strength normal and Psychiatric: mood appropriate, affect normal CBC and BMP: 08/15/16 12:01 08/10/16 04:31 ABG, PT/INR, D-dimer: PT/INR, D-dimer PT 13.2 Sec. (12.2-14.9) 08/08/16 16:49 INR 1.01 (0.87-1.13) 08/08/16 16:49 Abnormal lab findings: Abnormal Labs 08/07/16 08/07/16 08/07/16 15:34 15:34 15:34 WBC RBC Hgb Hct RDW 17.1 H Plt Count Lymph % (Auto) [place] % (Auto) Eos % (Auto) 8.6 H [place] # Eos # 0.9 H Seg Neutrophils % Seg Neuts % (Manual) Lymphocytes % (Manual) Seg Neutrophils # Seg Neutrophils # Man Lymphocytes # (Manual) Eosinophils # (Manual) APTT < 20.0 L Fibrinogen Heparin Anti-Xa Level Sodium Potassium Chloride Carbon Dioxide BUN Glucose POC Glucose Calcium Crossmatch See Detail 08/07/16 08/07/16 08/08/16 21:28 21:28 04:29 WBC 14.2 H 14.8 H RBC Hgb Hct RDW 17.2 H 16.8 H Plt Count Lymph % (Auto) 12.3 L 8.5 L [place] % (Auto) 7.5 H Eos % (Auto) 5.3 H [place] # 0.9 H 1.1 H Eos # 0.7 H 0.5 H Seg Neutrophils % 75.5 H 80.3 H Seg Neuts % (Manual) Lymphocytes % (Manual) Seg Neutrophils # 10.7 H 11.9 H Seg Neutrophils # Man Lymphocytes # (Manual) Eosinophils # (Manual) APTT Fibrinogen Heparin Anti-Xa Level Sodium Potassium Chloride Carbon Dioxide BUN 24 H Glucose POC Glucose Calcium Crossmatch 08/08/16 08/08/16 08/08/16 04:29 04:29 07:16 WBC 15.2 H RBC Hgb Hct RDW 17.3 H Plt Count Lymph % (Auto) 8.7 L [place] % (Auto) 8.2 H Eos % (Auto) [place] # 1.2 H Eos # 0.5 H Seg Neutrophils % 79.4 H Seg Neuts % (Manual) Lymphocytes % (Manual) Seg Neutrophils # 12.1 H Seg Neutrophils # Man Lymphocytes # (Manual) Eosinophils # (Manual) APTT Fibrinogen 186 L Heparin Anti-Xa Level 0.10 L Sodium Potassium Chloride Carbon Dioxide BUN 22 H Glucose 122 H POC Glucose Calcium 8.1 L Crossmatch 08/08/16 08/08/16 08/08/16 07:16 16:49 16:49 WBC RBC Hgb 9.8 L Hct 31.1 L D RDW Plt Count Lymph % (Auto) [place] % (Auto) Eos % (Auto) [place] # Eos # Seg Neutrophils % Seg Neuts % (Manual) Lymphocytes % (Manual) Seg Neutrophils # Seg Neutrophils # Man Lymphocytes # (Manual) Eosinophils # (Manual) APTT 94.0 H* Fibrinogen 189 L Heparin Anti-Xa Level < 0.10 L Sodium Potassium Chloride Carbon Dioxide BUN Glucose POC Glucose Calcium Crossmatch 08/09/16 08/09/16 08/09/16 04:46 06:51 11:02 WBC RBC Hgb 7.2 L Hct 22.4 L D RDW Plt Count Lymph % (Auto) [place] % (Auto) Eos % (Auto) [place] # Eos # Seg Neutrophils % Seg Neuts % (Manual) Lymphocytes % (Manual) Seg Neutrophils # Seg Neutrophils # Man Lymphocytes # (Manual) Eosinophils # (Manual) APTT Fibrinogen Heparin Anti-Xa Level Sodium 135 L 135 L Potassium 6.2 H* D 5.1 H Chloride 109.2 H 107.5 H Carbon Dioxide 14 L D 18 L BUN 28 H 28 H Glucose 113 H 129 H POC Glucose Calcium 6.9 L 7.1 L Crossmatch 08/10/16 08/10/16 08/12/16 04:31 04:31 05:36 WBC RBC Hgb 8.0 L 6.1 L Hct 24.1 L 18.6 L* RDW Plt Count 94 L Lymph % (Auto) [place] % (Auto) Eos % (Auto) [place] # Eos # Seg Neutrophils % Seg Neuts % (Manual) Lymphocytes % (Manual) Seg Neutrophils # Seg Neutrophils # Man Lymphocytes # (Manual) Eosinophils # (Manual) APTT Fibrinogen Heparin Anti-Xa Level Sodium Potassium Chloride 109.4 H Carbon Dioxide 18 L BUN 30 H Glucose 117 H POC Glucose Calcium 7.0 L Crossmatch 08/12/16 08/13/16 08/13/16 11:18 08:38 11:12 WBC 16.0 H RBC 3.00 L Hgb 9.3 L D Hct 27.8 L D RDW 15.4 H Plt Count Lymph % (Auto) [place] % (Auto) Eos % (Auto) [place] # Eos # Seg Neutrophils % Seg Neuts % (Manual) 91.0 H Lymphocytes % (Manual) 1.0 L Seg Neutrophils # Seg Neutrophils # Man 14.6 H Lymphocytes # (Manual) 0.2 L Eosinophils # (Manual) 0.6 H APTT Fibrinogen Heparin Anti-Xa Level 0.17 L Sodium Potassium Chloride Carbon Dioxide BUN Glucose POC Glucose Calcium Crossmatch See Detail 08/14/16 08/14/16 08/15/16 06:01 13:17 12:01 WBC 13.3 H RBC 2.59 L Hgb 7.6 L 8.0 L Hct 22.8 L 24.4 L RDW 16.2 H Plt Count Lymph % (Auto) [place] % (Auto) Eos % (Auto) [place] # Eos # Seg Neutrophils % Seg Neuts % (Manual) Lymphocytes % (Manual) Seg Neutrophils # Seg Neutrophils # Man Lymphocytes # (Manual) Eosinophils # (Manual) APTT Fibrinogen Heparin Anti-Xa Level Sodium Potassium Chloride Carbon Dioxide BUN Glucose POC Glucose 110 H Calcium Crossmatch Chest x-ray: report reviewed (No acute process.)
[2016-08-16] MEDS: PERCOCET 5/325 PO PRN ×4 (01:05→23:22)
[2016-08-16 08:30] LABS: Hematocrit 24.4 % (35.5-45.6); Hemoglobin 8.2 gm/dl (11.8-15.2)
[2016-08-16] MEDS: PLAVIX PO SCH ×2 (08:57→09:00)
[2016-08-16] MEDS: OxyCONTIN PO SCH ×3 (08:58→21:10)
[2016-08-16] MEDS: NEURONTIN PO SCH ×3 (08:58→21:10)
[2016-08-16] MEDS: PEPCID PO SCH ×3 (08:58→21:10)
[2016-08-16] MEDS: LOPRESSOR PO SCH ×2 (09:04→21:10)
--- NOTE | 2016-08-16 09:34 | Progress Note ---
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 Subjective Date of service: 08/16/16 Principal diagnosis: LLE ischemia Interval history: Patient denies chest pain and shortness of breath. Objective Vital Signs Temp Pulse Pulse Pulse Resp Resp Resp 08/16/16 09:04 85 08/16/16 05:47 98.6 F 85 20 08/16/16 00:25 98.9 F 81 20 08/15/16 22:18 81 08/15/16 21:00 98.6 F 81 20 08/15/16 20:59 80 16 08/15/16 20:07 20 08/15/16 20:00 73 16 08/15/16 19:45 20 08/15/16 18:18 98.6 F 68 12 08/15/16 16:24 18 08/15/16 15:24 20 08/15/16 15:23 20 08/15/16 10:37 98.6 F 63 12 08/15/16 10:00 68 68 20 20 BP BP Pulse Ox 08/16/16 09:04 121/67 08/16/16 05:47 150/98 20 L 08/16/16 00:25 123/78 96 08/15/16 22:18 08/15/16 21:00 144/78 98 08/15/16 20:59 08/15/16 20:07 08/15/16 20:00 08/15/16 19:45 08/15/16 18:18 116/72 96 08/15/16 16:24 08/15/16 15:24 08/15/16 15:23 08/15/16 10:37 115/77 64 L 08/15/16 10:00 99 - Physical Examination General: No Apparent Distress HEENT: Positive: PERRL Neck: Positive: trachea midline Cardiac: Positive: Reg Rate and Rhythm Extremities: Present: Other (LLE wound vac) - Labs and Meds CBC 08/15/16 08/16/16 Range/Units 12:01 07:32 WBC 13.3 H (4.5-11.0) K/mm3 RBC 2.59 L (3.65-5.03) M/mm3 Hgb 8.0 L 8.2 L (11.8-15.2) gm/dl Hct 24.4 L 24.4 L (35.5-45.6) % Plt Count 263 309 (140-440) K/mm3
[2016-08-16] MEDS: PULMICORT IH SCH ×2 (10:39→21:04)
[2016-08-16] MEDS: BROVANA NEBU IH SCH ×2 (10:39→21:04)
[2016-08-16] MEDS: DILAUDID IV PRN (14:30)
--- NOTE | 2016-08-16 15:17 | Progress Note ---
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 He subsequently developed a compartment syndrome requiring fasciotomy and left lower surgery bypass. He developed a significant hematoma to his left thigh. His hemoglobin has been stable for the last 3 days. No evidence of pseudoaneurysm old ultrasound. His thigh is swollen and firm. His arterial flow to his foot appears to be adequate with a palpable dorsalis pedis. Given the progressive paresthesias to his left foot in light of swelling and underlying thigh hematoma, considering possible thigh fasciotomy. Discussed with patient and at the bedside. - Patient Problems (1) Ischemia of left lower extremity Current Visit: Yes Status: Acute (2) Compartment syndrome Current Visit: Yes Status: Acute Qualifiers: Compartment syndrome type: C Encounter type: E Compartment syndrome location: C Laterality: L Subjective Date of service: 08/16/16 Principal diagnosis: LLE ischemia Interval history: Pt is awake and alert. C/o progressive paresthesia to the dorsum of his left foot over the last 2 days. Objective - Constitutional Vitals: Vital Signs - 12hr 08/16/16 08/16/16 08/16/16 05:47 08:23 09:04 Temperature 98.6 F 99.3 F Pulse Rate 85 82 85 Pulse Rate [ Anterior Bilateral Upper Lobe] Respiratory 20 18 Rate Respiratory Rate [Anterior Bilateral Upper Lobe] Blood Pressure 121/67 Blood Pressure 150/98 135/88 [Left] O2 Sat by Pulse 20 L 99 Oximetry 08/16/16 08/16/16 10:39 10:53 Temperature Pulse Rate Pulse Rate [ 75 82 Anterior Bilateral Upper Lobe] Respiratory Rate Respiratory 18 18 Rate [Anterior Bilateral Upper Lobe] Blood Pressure Blood Pressure [Left] O2 Sat by Pulse Oximetry General appearance: Present: no acute distress - EENT Eyes: EOM intact ENT: hearing intact - Neck Neck: supple - Respiratory Respiratory effort: normal Extremities: no ischemia, pulses intact (palpable dorsalis pedis pulse), abnormal (left thigh swelling (firm), incision is intact, ness in place, significant posterior ecchymosis) - Neurologic Neurologic: moves all extremities, other (he is able to dorsiflex and plantarflex his left foot although limited due to discomfort. He complains of progressive paresthesias to the dorsum of his left foot over the last 2 days.) - Labs CBC & Chem 7: 08/16/16 07:32 08/10/16 04:31 Labs: Abnormal lab results 08/16/16 08/16/16 Range/Units 07:32 08:28 Hgb 8.2 L (11.8-15.2) gm/dl Hct 24.4 L (35.5-45.6) % Heparin Anti-Xa Level < 0.10 L (0.3-0.7) U.I./ml
[2016-08-16] MEDS: HEPARIN/ 0.45% NACL-25,000 UNIT/500 ML 25,000 UNIT/500 ML BAG IV SCH (15:25)
--- NOTE | 2016-08-16 15:28 | Progress Note ---
Assessment and Plan COPD- continue with bronchodilators( LABA/LAMA). Will need outpatient follow for PFTs Tobacco abuse disorder- smoking cessation counselling >10 minutes at the bedside. He states that he has not craved a cigarette so he hopes to stay "quit" LLExt ischemia- as per vascular service VTE prophylaxis- on therapeutic heparin infusion Subjective Date of service: 08/16/16 Principal diagnosis: LLE ischemia Interval history: No complaint of chest pain or shortness of breath or cough.O2 saturation 96 % on room air. He has a history of tobacco abuse, last cigarette was 9 days ago and he denies any symptoms suggestive of nicotine withdrawal. Denies any cravings. Seen and examined, vitals, labs, medications, chart reviewed Objective Vital Signs - 12hr 08/16/16 08/16/16 08/16/16 05:47 08:23 09:04 Temperature 98.6 F 99.3 F Pulse Rate 85 82 85 Pulse Rate [ Anterior Bilateral Upper Lobe] Respiratory 20 18 Rate Respiratory Rate [Anterior Bilateral Upper Lobe] Blood Pressure 121/67 Blood Pressure 150/98 135/88 [Left] O2 Sat by Pulse 20 L 99 Oximetry 08/16/16 08/16/16 10:39 10:53 Temperature Pulse Rate Pulse Rate [ 75 82 Anterior Bilateral Upper Lobe] Respiratory Rate Respiratory 18 18 Rate [Anterior Bilateral Upper Lobe] Blood Pressure Blood Pressure [Left] O2 Sat by Pulse Oximetry Constitutional: no acute distress, alert Eyes: non-icteric ENT: oropharynx moist, other Neck: supple, no lymphadenopathy Effort: normal Ascultation: Bilateral: clear, diminished breath sounds, other (prolonged exp phase) Cardiovascular: regular rate and rhythm Gastrointestinal: normoactive bowel sounds, soft, non-tender, non-distended Integumentary: normal Extremities: no cyanosis, edema (left lower extremity, wound vac in place, ness anteromedial thigh), other (Patient has vascular surgery right loer extremity.) Neurologic: normal mental status, non-focal exam, pupils equal and round, motor strength normal and Psychiatric: mood appropriate, affect normal CBC and BMP: 08/16/16 07:32 08/10/16 04:31 ABG, PT/INR, D-dimer: PT/INR, D-dimer PT 13.2 Sec. (12.2-14.9) 08/08/16 16:49 INR 1.01 (0.87-1.13) 08/08/16 16:49 Abnormal lab findings: Abnormal Labs 08/07/16 08/07/16 08/07/16 15:34 15:34 15:34 WBC RBC Hgb Hct RDW 17.1 H Plt Count Lymph % (Auto) [place] % (Auto) Eos % (Auto) 8.6 H [place] # Eos # 0.9 H Seg Neutrophils % Seg Neuts % (Manual) Lymphocytes % (Manual) Seg Neutrophils # Seg Neutrophils # Man Lymphocytes # (Manual) Eosinophils # (Manual) APTT < 20.0 L Fibrinogen Heparin Anti-Xa Level Sodium Potassium Chloride Carbon Dioxide BUN Glucose POC Glucose Calcium Crossmatch See Detail 08/07/16 08/07/16 08/08/16 21:28 21:28 04:29 WBC 14.2 H 14.8 H RBC Hgb Hct RDW 17.2 H 16.8 H Plt Count Lymph % (Auto) 12.3 L 8.5 L [place] % (Auto) 7.5 H Eos % (Auto) 5.3 H [place] # 0.9 H 1.1 H Eos # 0.7 H 0.5 H Seg Neutrophils % 75.5 H 80.3 H Seg Neuts % (Manual) Lymphocytes % (Manual) Seg Neutrophils # 10.7 H 11.9 H Seg Neutrophils # Man Lymphocytes # (Manual) Eosinophils # (Manual) APTT Fibrinogen Heparin Anti-Xa Level Sodium Potassium Chloride Carbon Dioxide BUN 24 H Glucose POC Glucose Calcium Crossmatch 08/08/16 08/08/16 08/08/16 04:29 04:29 07:16 WBC 15.2 H RBC Hgb Hct RDW 17.3 H Plt Count Lymph % (Auto) 8.7 L [place] % (Auto) 8.2 H Eos % (Auto) [place] # 1.2 H Eos # 0.5 H Seg Neutrophils % 79.4 H Seg Neuts % (Manual) Lymphocytes % (Manual) Seg Neutrophils # 12.1 H Seg Neutrophils # Man Lymphocytes # (Manual) Eosinophils # (Manual) APTT Fibrinogen 186 L Heparin Anti-Xa Level 0.10 L Sodium Potassium Chloride Carbon Dioxide BUN 22 H Glucose 122 H POC Glucose Calcium 8.1 L Crossmatch 08/08/16 08/08/16 08/08/16 07:16 16:49 16:49 WBC RBC Hgb 9.8 L Hct 31.1 L D RDW Plt Count Lymph % (Auto) [place] % (Auto) Eos % (Auto) [place] # Eos # Seg Neutrophils % Seg Neuts % (Manual) Lymphocytes % (Manual) Seg Neutrophils # Seg Neutrophils # Man Lymphocytes # (Manual) Eosinophils # (Manual) APTT 94.0 H* Fibrinogen 189 L Heparin Anti-Xa Level < 0.10 L Sodium Potassium Chloride Carbon Dioxide BUN Glucose POC Glucose Calcium Crossmatch 08/09/16 08/09/16 08/09/16 04:46 06:51 11:02 WBC RBC Hgb 7.2 L Hct 22.4 L D RDW Plt Count Lymph % (Auto) [place] % (Auto) Eos % (Auto) [place] # Eos # Seg Neutrophils % Seg Neuts % (Manual) Lymphocytes % (Manual) Seg Neutrophils # Seg Neutrophils # Man Lymphocytes # (Manual) Eosinophils # (Manual) APTT Fibrinogen Heparin Anti-Xa Level Sodium 135 L 135 L Potassium 6.2 H* D 5.1 H Chloride 109.2 H 107.5 H Carbon Dioxide 14 L D 18 L BUN 28 H 28 H Glucose 113 H 129 H POC Glucose Calcium 6.9 L 7.1 L Crossmatch 08/10/16 08/10/16 08/12/16 04:31 04:31 05:36 WBC RBC Hgb 8.0 L 6.1 L Hct 24.1 L 18.6 L* RDW Plt Count 94 L Lymph % (Auto) [place] % (Auto) Eos % (Auto) [place] # Eos # Seg Neutrophils % Seg Neuts % (Manual) Lymphocytes % (Manual) Seg Neutrophils # Seg Neutrophils # Man Lymphocytes # (Manual) Eosinophils # (Manual) APTT Fibrinogen Heparin Anti-Xa Level Sodium Potassium Chloride 109.4 H Carbon Dioxide 18 L BUN 30 H Glucose 117 H POC Glucose Calcium 7.0 L Crossmatch 08/12/16 08/13/16 08/13/16 11:18 08:38 11:12 WBC 16.0 H RBC 3.00 L Hgb 9.3 L D Hct 27.8 L D RDW 15.4 H Plt Count Lymph % (Auto) [place] % (Auto) Eos % (Auto) [place] # Eos # Seg Neutrophils % Seg Neuts % (Manual) 91.0 H Lymphocytes % (Manual) 1.0 L Seg Neutrophils # Seg Neutrophils # Man 14.6 H Lymphocytes # (Manual) 0.2 L Eosinophils # (Manual) 0.6 H APTT Fibrinogen Heparin Anti-Xa Level 0.17 L Sodium Potassium Chloride Carbon Dioxide BUN Glucose POC Glucose Calcium Crossmatch See Detail 08/14/16 08/14/16 08/15/16 06:01 13:17 12:01 WBC 13.3 H RBC 2.59 L Hgb 7.6 L 8.0 L Hct 22.8 L 24.4 L RDW 16.2 H Plt Count Lymph % (Auto) [place] % (Auto) Eos % (Auto) [place] # Eos # Seg Neutrophils % Seg Neuts % (Manual) Lymphocytes % (Manual) Seg Neutrophils # Seg Neutrophils # Man Lymphocytes # (Manual) Eosinophils # (Manual) APTT Fibrinogen Heparin Anti-Xa Level Sodium Potassium Chloride Carbon Dioxide BUN Glucose POC Glucose 110 H Calcium Crossmatch 08/16/16 08/16/16 07:32 08:28 WBC RBC Hgb 8.2 L Hct 24.4 L RDW Plt Count Lymph % (Auto) [place] % (Auto) Eos % (Auto) [place] # Eos # Seg Neutrophils % Seg Neuts % (Manual) Lymphocytes % (Manual) Seg Neutrophils # Seg Neutrophils # Man Lymphocytes # (Manual) Eosinophils # (Manual) APTT Fibrinogen Heparin Anti-Xa Level < 0.10 L Sodium Potassium Chloride Carbon Dioxide BUN Glucose POC Glucose Calcium Crossmatch
--- NOTE | 2016-08-16 16:38 | Vascular Lab Report ---
LEFT LOWER EXTREMITY ARTERIAL DUPLEX: REASON FOR EXAM: Rule out pulse aneurysm. COMMENTS ON THE LEFT: Monophasic waveforms are seen proximally. No significant velocity gradients are identified. No focal significant plaque is identified. No evidence of false aneurysm. Hematoma seen in the left groin. IMPRESSION: LEFT:Left groin hematoma. No evidence of false aneurysm..
[2016-08-17] MEDS: PERCOCET 5/325 PO PRN ×4 (05:18→23:31)
[2016-08-17] MEDS: NEURONTIN PO SCH ×3 (05:18→21:28)
[2016-08-17] MEDS: DILAUDID IV PRN ×6 (07:44→18:30)
[2016-08-17] MEDS: PULMICORT IH SCH ×2 (08:34→20:36)
[2016-08-17] MEDS: BROVANA NEBU IH SCH ×2 (08:34→20:35)
[2016-08-17] MEDS ORDERED: VERSED IV NR (09:00)
--- NOTE | 2016-08-17 09:18 | Progress Note ---
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 Subjective Date of service: 08/17/16 Principal diagnosis: LLE ischemia Interval history: Patient denies chest pain and shortness of breath. Awaits vascular procedure. Objective Vital Signs Temp Pulse Pulse Pulse Resp Resp BP 08/17/16 08:00 98.5 F 77 20 08/17/16 07:45 20 08/17/16 07:44 20 08/17/16 05:05 98.1 F 84 18 08/17/16 00:16 98.2 F 69 18 08/16/16 22:00 80 08/16/16 21:15 79 16 08/16/16 21:10 81 151/79 08/16/16 21:02 74 20 08/16/16 20:07 98.8 F 81 18 08/16/16 16:33 98.3 F 70 20 08/16/16 10:53 82 18 08/16/16 10:39 75 18 08/16/16 10:00 62 85 BP Pulse Ox 08/17/16 08:00 143/92 97 08/17/16 07:45 08/17/16 07:44 08/17/16 05:05 153/93 97 08/17/16 00:16 143/84 97 08/16/16 22:00 08/16/16 21:15 08/16/16 21:10 08/16/16 21:02 08/16/16 20:07 151/79 98 08/16/16 16:33 149/70 98 08/16/16 10:53 08/16/16 10:39 08/16/16 10:00 98 - Physical Examination General: No Apparent Distress HEENT: Positive: PERRL Neck: Positive: trachea midline Cardiac: Positive: Reg Rate and Rhythm Lungs: Positive: Decreased Breath Sounds Extremities: Present: Other (LLE wound vac)
[2016-08-17] MEDS: PEPCID IV NR ×2 (10:10→21:34)
[2016-08-17] MEDS: NACL 0.9% 1000 ML 1,000 ML IV SCH ×2 (10:11→14:30)
--- NOTE | 2016-08-17 11:14 | Progress Note ---
Assessment and Plan COPD- continue with bronchodilators( LABA/LAMA). Will need outpatient follow for PFTs Tobacco abuse disorder- smoking cessation counselling >10 minutes at the bedside. He states that he has not craved a cigarette so he hopes to stay "quit" LLExt ischemia- as per vascular service, s/p revision and evaluation inOR VTE prophylaxis- on therapeutic heparin infusion - Patient Problems (1) COPD (chronic obstructive pulmonary disease) Current Visit: Yes Status: Acute Qualifiers: COPD type: C Chronic bronchitis type: C Emphysema type: E Plan to address problem: Continue supplemental oxygen as needed for O2 sats>90% Bronchodilators Smoking cessation counselling, nicotine withdrawal precautions (2) Ischemia of left lower extremity Current Visit: Yes Status: Acute Plan to address problem: Per IR /Vascular service (3) Tobacco use disorder Current Visit: Yes Status: Acute Plan to address problem: Smoking cessation counselling Subjective Date of service: 08/17/16 Principal diagnosis: LLE ischemia Interval history: No complaint of chest pain or shortness of breath or cough.O2 saturation 96 % on room air. He has a history of tobacco abuse, last cigarette was 9 days ago and he denies any symptoms suggestive of nicotine withdrawal. Denies any cravings. Seen and examined, vitals, labs, medications, chart reviewed Objective Vital Signs - 12hr 08/17/16 08/17/16 08/17/16 00:16 05:05 07:44 Temperature 98.2 F 98.1 F Pulse Rate 69 84 Respiratory 18 18 20 Rate Blood Pressure 143/84 153/93 [Left] O2 Sat by Pulse 97 97 Oximetry 08/17/16 08/17/16 08/17/16 07:45 08:00 10:09 Temperature 98.5 F Pulse Rate 77 Respiratory 20 20 20 Rate Blood Pressure 143/92 [Left] O2 Sat by Pulse 97 Oximetry Constitutional: no acute distress, alert Eyes: non-icteric ENT: oropharynx moist, other Neck: supple, no lymphadenopathy Effort: normal Ascultation: Bilateral: clear, diminished breath sounds, other (prolonged exp phase) Cardiovascular: regular rate and rhythm Gastrointestinal: normoactive bowel sounds, soft, non-tender, non-distended Integumentary: normal Extremities: no cyanosis, edema (left lower extremity, wound vac in place, ness anteromedial thigh), other (Patient has vascular surgery right loer extremity.) Neurologic: normal mental status, non-focal exam, pupils equal and round, motor strength normal and Psychiatric: mood appropriate, affect normal CBC and BMP: 08/19/16 08:01 08/10/16 04:31 ABG, PT/INR, D-dimer: PT/INR, D-dimer PT 13.2 Sec. (12.2-14.9) 08/08/16 16:49 INR 1.01 (0.87-1.13) 08/08/16 16:49 Abnormal lab findings: Abnormal Labs 08/07/16 08/07/16 08/07/16 15:34 15:34 15:34 WBC RBC Hgb Hct RDW 17.1 H Plt Count Lymph % (Auto) [place] % (Auto) Eos % (Auto) 8.6 H [place] # Eos # 0.9 H Seg Neutrophils % Seg Neuts % (Manual) Lymphocytes % (Manual) Seg Neutrophils # Seg Neutrophils # Man Lymphocytes # (Manual) Eosinophils # (Manual) APTT < 20.0 L Fibrinogen Heparin Anti-Xa Level Sodium Potassium Chloride Carbon Dioxide BUN Glucose POC Glucose Calcium Crossmatch See Detail 08/07/16 08/07/16 08/08/16 21:28 21:28 04:29 WBC 14.2 H 14.8 H RBC Hgb Hct RDW 17.2 H 16.8 H Plt Count Lymph % (Auto) 12.3 L 8.5 L [place] % (Auto) 7.5 H Eos % (Auto) 5.3 H [place] # 0.9 H 1.1 H Eos # 0.7 H 0.5 H Seg Neutrophils % 75.5 H 80.3 H Seg Neuts % (Manual) Lymphocytes % (Manual) Seg Neutrophils # 10.7 H 11.9 H Seg Neutrophils # Man Lymphocytes # (Manual) Eosinophils # (Manual) APTT Fibrinogen Heparin Anti-Xa Level Sodium Potassium Chloride Carbon Dioxide BUN 24 H Glucose POC Glucose Calcium Crossmatch 08/08/16 08/08/16 08/08/16 04:29 04:29 07:16 WBC 15.2 H RBC Hgb Hct RDW 17.3 H Plt Count Lymph % (Auto) 8.7 L [place] % (Auto) 8.2 H Eos % (Auto) [place] # 1.2 H Eos # 0.5 H Seg Neutrophils % 79.4 H Seg Neuts % (Manual) Lymphocytes % (Manual) Seg Neutrophils # 12.1 H Seg Neutrophils # Man Lymphocytes # (Manual) Eosinophils # (Manual) APTT Fibrinogen 186 L Heparin Anti-Xa Level 0.10 L Sodium Potassium Chloride Carbon Dioxide BUN 22 H Glucose 122 H POC Glucose Calcium 8.1 L Crossmatch 08/08/16 08/08/16 08/08/16 07:16 16:49 16:49 WBC RBC Hgb 9.8 L Hct 31.1 L D RDW Plt Count Lymph % (Auto) [place] % (Auto) Eos % (Auto) [place] # Eos # Seg Neutrophils % Seg Neuts % (Manual) Lymphocytes % (Manual) Seg Neutrophils # Seg Neutrophils # Man Lymphocytes # (Manual) Eosinophils # (Manual) APTT 94.0 H* Fibrinogen 189 L Heparin Anti-Xa Level < 0.10 L Sodium Potassium Chloride Carbon Dioxide BUN Glucose POC Glucose Calcium Crossmatch 08/09/16 08/09/16 08/09/16 04:46 06:51 11:02 WBC RBC Hgb 7.2 L Hct 22.4 L D RDW Plt Count Lymph % (Auto) [place] % (Auto) Eos % (Auto) [place] # Eos # Seg Neutrophils % Seg Neuts % (Manual) Lymphocytes % (Manual) Seg Neutrophils # Seg Neutrophils # Man Lymphocytes # (Manual) Eosinophils # (Manual) APTT Fibrinogen Heparin Anti-Xa Level Sodium 135 L 135 L Potassium 6.2 H* D 5.1 H Chloride 109.2 H 107.5 H Carbon Dioxide 14 L D 18 L BUN 28 H 28 H Glucose 113 H 129 H POC Glucose Calcium 6.9 L 7.1 L Crossmatch 08/10/16 08/10/16 08/12/16 04:31 04:31 05:36 WBC RBC Hgb 8.0 L 6.1 L Hct 24.1 L 18.6 L* RDW Plt Count 94 L Lymph % (Auto) [place] % (Auto) Eos % (Auto) [place] # Eos # Seg Neutrophils % Seg Neuts % (Manual) Lymphocytes % (Manual) Seg Neutrophils # Seg Neutrophils # Man Lymphocytes # (Manual) Eosinophils # (Manual) APTT Fibrinogen Heparin Anti-Xa Level Sodium Potassium Chloride 109.4 H Carbon Dioxide 18 L BUN 30 H Glucose 117 H POC Glucose Calcium 7.0 L Crossmatch 08/12/16 08/13/16 08/13/16 11:18 08:38 11:12 WBC 16.0 H RBC 3.00 L Hgb 9.3 L D Hct 27.8 L D RDW 15.4 H Plt Count Lymph % (Auto) [place] % (Auto) Eos % (Auto) [place] # Eos # Seg Neutrophils % Seg Neuts % (Manual) 91.0 H Lymphocytes % (Manual) 1.0 L Seg Neutrophils # Seg Neutrophils # Man 14.6 H Lymphocytes # (Manual) 0.2 L Eosinophils # (Manual) 0.6 H APTT Fibrinogen Heparin Anti-Xa Level 0.17 L Sodium Potassium Chloride Carbon Dioxide BUN Glucose POC Glucose Calcium Crossmatch See Detail 08/14/16 08/14/16 08/15/16 06:01 13:17 12:01 WBC 13.3 H RBC 2.59 L Hgb 7.6 L 8.0 L Hct 22.8 L 24.4 L RDW 16.2 H Plt Count Lymph % (Auto) [place] % (Auto) Eos % (Auto) [place] # Eos # Seg Neutrophils % Seg Neuts % (Manual) Lymphocytes % (Manual) Seg Neutrophils # Seg Neutrophils # Man Lymphocytes # (Manual) Eosinophils # (Manual) APTT Fibrinogen Heparin Anti-Xa Level Sodium Potassium Chloride Carbon Dioxide BUN Glucose POC Glucose 110 H Calcium Crossmatch 08/16/16 08/16/16 08/16/16 07:32 08:28 21:09 WBC RBC Hgb 8.2 L Hct 24.4 L RDW Plt Count Lymph % (Auto) [place] % (Auto) Eos % (Auto) [place] # Eos # Seg Neutrophils % Seg Neuts % (Manual) Lymphocytes % (Manual) Seg Neutrophils # Seg Neutrophils # Man Lymphocytes # (Manual) Eosinophils # (Manual) APTT Fibrinogen Heparin Anti-Xa Level < 0.10 L 0.19 L Sodium Potassium Chloride Carbon Dioxide BUN Glucose POC Glucose Calcium Crossmatch
[2016-08-17] MEDS: OxyCONTIN PO SCH ×2 (11:22→21:28)
[2016-08-17] MEDS: PEPCID PO SCH ×2 (11:23→21:35)
[2016-08-17] MEDS: PLAVIX PO SCH (11:23)
[2016-08-17] MEDS: LOPRESSOR PO SCH ×2 (11:23→21:30)
[2016-08-17] MEDS ORDERED: NEO SYNEPHRINE/NS Syringe(OR USE) IV ONE (14:00)
--- NOTE | 2016-08-17 14:03 | Anesthesia Consultation ---
Anesthesia Consult and Med Hx Date of service: 08/17/16 - Airway Anesthetic Teeth Evaluation: Good (some missing) ROM Head & Neck: Adequate Mental/Hyoid Distance: Adequate Mallampati Class: Class II Intubation Access Assessment: Probably Good - Pulmonary Exam CTA: Yes - Cardiac Exam Cardiac Exam: RRR - Pre-Operative Health Status ASA Pre-Surgery Classification: ASA3 Proposed Anesthetic Plan: General (previous anesthsia- no problems) - Pulmonary Hx Smoking: Yes (1PPD x 41) Hx Asthma: No COPD: Yes Hx Pneumonia: No - Cardiovascular System Hx Hypertension: Yes Hx Angina: No (CHF ) Hx Peripheral Vascular Disease: Yes (left leg - sx on 08/13 fasciotomy) - Central Nervous System Hx Psychiatric Problems: No - Gastrointestinal Hx Gastroesophageal Reflux Disease: Yes (took pepcid this AM on floor) - Endocrine Hx End Stage Renal Disease: No - Hematic Hx Anemia: Yes - Other Systems Hx Cancer: No
--- NOTE | 2016-08-17 14:08 | Anesthesia Day of Surgery ---
Anesthesia Day of Surgery - Day of Surgery Patient Examined: Yes Patient H&P Reviewed: Yes Patient is NPO: Yes Beta Blockers: Yes (not given due to low BP will give as needed in OR)
[2016-08-17] MEDS ORDERED: DIPRIVAN 10 MG/ML IV ONE (14:33)
[2016-08-17] MEDS ORDERED: DILAUDID ONE (14:34)
[2016-08-17] MEDS ORDERED: XYLOCAINE MPF 2% ONE (14:34)
[2016-08-17] MEDS ORDERED: ANCEF/STERILE WATER 2 GM/20 ML IV NR (15:00)
--- NOTE | 2016-08-17 15:29 | Event Note ---
Date: 08/17/16 Pt has progressive numbness over the diatal left leg. He has deep pain in the left thigh. He has tenderness with pressure in the mid thigh. CT scan shows large hematoma associated with anterior mid thigh muscle group. Probable pressure from hematoma causing compression symptoms in distal leg. Plan to evacuate hematoma.
[2016-08-17] MEDS ORDERED: NACL 0.9% IR ONE ×2 (15:41)
[2016-08-17] MEDS ORDERED: ZOFRAN ONE (16:08)
--- NOTE | 2016-08-17 16:25 | Operative Report ---
Operative Report Operative Report: Date of procedure: 08/17/2016 Pre-operative diagnosis: Hematoma, left thigh Post-operative diagnosis: Same Procedure name(s): Evacuation of hematoma from the left anterior thigh Surgeon: Kimani Saldivar MD Statistical Machine Mechanic: None Anesthesia: Gen. endotracheal tube EBL: Less than 100 mL Operative indication: Patient is a 61-year-old man who has a known hematoma in his mid left thigh. This was diagnosed on CT scan 24 hours ago. He is developed progressive pain and discomfort in the area as well as some numbness involving the left lower extremity. He presents now for activation hematoma. Findings: Large hematoma in the mid thigh. No evidence of active bleeding. Procedure: She was placed on the table supine position. He was given appropriate anesthesia. The area over the left lower extremity was prepped with Clorpactin solution and draped in usual sterile fashion. Preoperatively, the area of the hematoma had been marked using ultrasound guidance. Cystoscopy was made over this site and dissection was carried out to identify the anterior muscle compartment. Dissection was carried between the bellies of the muscle until a tense area of soft tissue was identified near the femur. Once the soft tissue was entered a large amount of hematoma under pressure was liberated. The cavity itself was approximately 15 cm long by about 5 cm in greatest dimension. Pulse lavage was then used to clean out the area. Exploration was made around the femur in the area to make sure that all loculations were opened. Further hematomas were identified. A 19 round Sascha drain was then placed through a separate stab incision into the deep portion of the thigh. Meticulous hemostasis was obtained. Closure was done with 2-0 subcutaneous Vicryl and skin ness. Sterile dressings were applied. The patient tolerated the procedure well. Sponge, needle, and instrument counts were reported as correct. He was taken from the operating room to the recovery room in stable condition.
[2016-08-18] MEDS: HEPARIN/ 0.45% NACL-25,000 UNIT/500 ML 25,000 UNIT/500 ML BAG IV SCH ×2 (02:38→19:44)
[2016-08-18] MEDS: NEURONTIN PO SCH ×3 (05:26→21:01)
[2016-08-18] MEDS: PERCOCET 5/325 PO PRN (05:26)
[2016-08-18] MEDS: PLAVIX PO SCH (09:03)
[2016-08-18] MEDS: PEPCID PO SCH ×2 (09:04→21:01)
[2016-08-18] MEDS: OxyCONTIN PO SCH ×2 (09:05→21:01)
--- NOTE | 2016-08-18 09:08 | Progress Note ---
Assessment and Plan COPD- continue with bronchodilators( LABA/LAMA). Will need outpatient follow for PFTs Tobacco abuse disorder- smoking cessation counselling >10 minutes at the bedside. He states that he has not craved a cigarette so he hopes to stay "quit" LLExt ischemia- as per vascular service, s/p revision and evaluation in OR VTE prophylaxis- on therapeutic heparin infusion Subjective Date of service: 08/18/16 Principal diagnosis: LLE ischemia Interval history: No complaint of chest pain or shortness of breath or cough.O2 saturation 96 % on room air. Seen and examined, vitals, labs, medications, chart reviewed Objective Vital Signs - 12hr 08/17/16 08/17/16 08/17/16 21:29 21:30 22:00 Temperature 98.8 F Pulse Rate 82 Pulse Rate [ 0 L Apical] Pulse Rate [ 0 L From Monitor] Pulse Rate [ 0 L Left Dorsalis Pedis] Pulse Rate [ 114 H Left Radial] Pulse Rate [ 0 L Right Dorsalis Pedis] Pulse Rate [ 0 L Right Radial] Respiratory 20 Rate Blood Pressure 132/78 Blood Pressure 110/63 [Left Arm] Blood Pressure 0/0 [Right Radial Artery] O2 Sat by Pulse 96 98 Oximetry 08/18/16 08/18/16 08/18/16 01:09 04:05 04:20 Temperature 98.8 F 98.7 F Pulse Rate 88 Pulse Rate [ 0 L 0 L Apical] Pulse Rate [ 0 L 0 L From Monitor] Pulse Rate [ 0 L 0 L Left Dorsalis Pedis] Pulse Rate [ 0 L 91 H Left Radial] Pulse Rate [ 0 L 0 L Right Dorsalis Pedis] Pulse Rate [ 79 0 L Right Radial] Respiratory 20 20 Rate Blood Pressure Blood Pressure 0/0 109/63 [Left Arm] Blood Pressure 105/58 0/0 [Right Radial Artery] O2 Sat by Pulse 99 96 Oximetry 08/18/16 08/18/16 05:26 08:25 Temperature 98.7 F Pulse Rate Pulse Rate [ Apical] Pulse Rate [ From Monitor] Pulse Rate [ Left Dorsalis Pedis] Pulse Rate [ 92 H Left Radial] Pulse Rate [ Right Dorsalis Pedis] Pulse Rate [ Right Radial] Respiratory 16 16 Rate Blood Pressure Blood Pressure 102/65 [Left Arm] Blood Pressure [Right Radial Artery] O2 Sat by Pulse 95 Oximetry Constitutional: no acute distress, alert Eyes: non-icteric ENT: oropharynx moist Neck: supple, no lymphadenopathy Effort: normal Ascultation: Bilateral: clear, diminished breath sounds, other (prolonged exp phase) Cardiovascular: regular rate and rhythm Gastrointestinal: normoactive bowel sounds, soft, non-tender, non-distended Integumentary: normal Extremities: no cyanosis, edema (left lower extremity, wound vac in place, ness anteromedial thigh), other (P) Neurologic: normal mental status, non-focal exam, pupils equal and round, motor strength normal and Psychiatric: mood appropriate, affect normal CBC and BMP: 08/19/16 08:01 08/10/16 04:31 ABG, PT/INR, D-dimer: PT/INR, D-dimer PT 13.2 Sec. (12.2-14.9) 08/08/16 16:49 INR 1.01 (0.87-1.13) 08/08/16 16:49 Abnormal lab findings: Abnormal Labs 08/07/16 08/07/16 08/07/16 15:34 15:34 15:34 WBC RBC Hgb Hct RDW 17.1 H Plt Count Lymph % (Auto) [place] % (Auto) Eos % (Auto) 8.6 H [place] # Eos # 0.9 H Seg Neutrophils % Seg Neuts % (Manual) Lymphocytes % (Manual) Seg Neutrophils # Seg Neutrophils # Man Lymphocytes # (Manual) Eosinophils # (Manual) APTT < 20.0 L Fibrinogen Heparin Anti-Xa Level Sodium Potassium Chloride Carbon Dioxide BUN Glucose POC Glucose Calcium Crossmatch See Detail 08/07/16 08/07/16 08/08/16 21:28 21:28 04:29 WBC 14.2 H 14.8 H RBC Hgb Hct RDW 17.2 H 16.8 H Plt Count Lymph % (Auto) 12.3 L 8.5 L [place] % (Auto) 7.5 H Eos % (Auto) 5.3 H [place] # 0.9 H 1.1 H Eos # 0.7 H 0.5 H Seg Neutrophils % 75.5 H 80.3 H Seg Neuts % (Manual) Lymphocytes % (Manual) Seg Neutrophils # 10.7 H 11.9 H Seg Neutrophils # Man Lymphocytes # (Manual) Eosinophils # (Manual) APTT Fibrinogen Heparin Anti-Xa Level Sodium Potassium Chloride Carbon Dioxide BUN 24 H Glucose POC Glucose Calcium Crossmatch 06/14/17 06/14/17 06/14/17 04:29 04:29 07:16 WBC 15.2 H RBC Hgb Hct RDW 17.3 H Plt Count Lymph % (Auto) 8.7 L [place] % (Auto) 8.2 H Eos % (Auto) [place] # 1.2 H Eos # 0.5 H Seg Neutrophils % 79.4 H Seg Neuts % (Manual) Lymphocytes % (Manual) Seg Neutrophils # 12.1 H Seg Neutrophils # Man Lymphocytes # (Manual) Eosinophils # (Manual) APTT Fibrinogen 186 L Heparin Anti-Xa Level 0.10 L Sodium Potassium Chloride Carbon Dioxide BUN 22 H Glucose 122 H POC Glucose Calcium 8.1 L Crossmatch 08/08/16 08/08/16 08/08/16 07:16 16:49 16:49 WBC RBC Hgb 9.8 L Hct 31.1 L D RDW Plt Count Lymph % (Auto) [place] % (Auto) Eos % (Auto) [place] # Eos # Seg Neutrophils % Seg Neuts % (Manual) Lymphocytes % (Manual) Seg Neutrophils # Seg Neutrophils # Man Lymphocytes # (Manual) Eosinophils # (Manual) APTT 94.0 H* Fibrinogen 189 L Heparin Anti-Xa Level < 0.10 L Sodium Potassium Chloride Carbon Dioxide BUN Glucose POC Glucose Calcium Crossmatch 08/09/16 08/09/16 08/09/16 04:46 06:51 11:02 WBC RBC Hgb 7.2 L Hct 22.4 L D RDW Plt Count Lymph % (Auto) [place] % (Auto) Eos % (Auto) [place] # Eos # Seg Neutrophils % Seg Neuts % (Manual) Lymphocytes % (Manual) Seg Neutrophils # Seg Neutrophils # Man Lymphocytes # (Manual) Eosinophils # (Manual) APTT Fibrinogen Heparin Anti-Xa Level Sodium 135 L 135 L Potassium 6.2 H* D 5.1 H Chloride 109.2 H 107.5 H Carbon Dioxide 14 L D 18 L BUN 28 H 28 H Glucose 113 H 129 H POC Glucose Calcium 6.9 L 7.1 L Crossmatch 08/10/16 08/10/16 08/12/16 04:31 04:31 05:36 WBC RBC Hgb 8.0 L 6.1 L Hct 24.1 L 18.6 L* RDW Plt Count 94 L Lymph % (Auto) [place] % (Auto) Eos % (Auto) [place] # Eos # Seg Neutrophils % Seg Neuts % (Manual) Lymphocytes % (Manual) Seg Neutrophils # Seg Neutrophils # Man Lymphocytes # (Manual) Eosinophils # (Manual) APTT Fibrinogen Heparin Anti-Xa Level Sodium Potassium Chloride 109.4 H Carbon Dioxide 18 L BUN 30 H Glucose 117 H POC Glucose Calcium 7.0 L Crossmatch 08/12/16 08/13/16 08/13/16 11:18 08:38 11:12 WBC 16.0 H RBC 3.00 L Hgb 9.3 L D Hct 27.8 L D RDW 15.4 H Plt Count Lymph % (Auto) [place] % (Auto) Eos % (Auto) [place] # Eos # Seg Neutrophils % Seg Neuts % (Manual) 91.0 H Lymphocytes % (Manual) 1.0 L Seg Neutrophils # Seg Neutrophils # Man 14.6 H Lymphocytes # (Manual) 0.2 L Eosinophils # (Manual) 0.6 H APTT Fibrinogen Heparin Anti-Xa Level 0.17 L Sodium Potassium Chloride Carbon Dioxide BUN Glucose POC Glucose Calcium Crossmatch See Detail 08/14/16 08/14/16 08/15/16 06:01 13:17 12:01 WBC 13.3 H RBC 2.59 L Hgb 7.6 L 8.0 L Hct 22.8 L 24.4 L RDW 16.2 H Plt Count Lymph % (Auto) [place] % (Auto) Eos % (Auto) [place] # Eos # Seg Neutrophils % Seg Neuts % (Manual) Lymphocytes % (Manual) Seg Neutrophils # Seg Neutrophils # Man Lymphocytes # (Manual) Eosinophils # (Manual) APTT Fibrinogen Heparin Anti-Xa Level Sodium Potassium Chloride Carbon Dioxide BUN Glucose POC Glucose 110 H Calcium Crossmatch 08/16/16 08/16/16 08/16/16 07:32 08:28 21:09 WBC RBC Hgb 8.2 L Hct 24.4 L RDW Plt Count Lymph % (Auto) [place] % (Auto) Eos % (Auto) [place] # Eos # Seg Neutrophils % Seg Neuts % (Manual) Lymphocytes % (Manual) Seg Neutrophils # Seg Neutrophils # Man Lymphocytes # (Manual) Eosinophils # (Manual) APTT Fibrinogen Heparin Anti-Xa Level < 0.10 L 0.19 L Sodium Potassium Chloride Carbon Dioxide BUN Glucose POC Glucose Calcium Crossmatch 06/24/17 06/24/17 00:44 05:34 WBC RBC Hgb Hct RDW Plt Count Lymph % (Auto) [place] % (Auto) Eos % (Auto) [place] # Eos # Seg Neutrophils % Seg Neuts % (Manual) Lymphocytes % (Manual) Seg Neutrophils # Seg Neutrophils # Man Lymphocytes # (Manual) Eosinophils # (Manual) APTT Fibrinogen Heparin Anti-Xa Level < 0.10 L 0.13 L Sodium Potassium Chloride Carbon Dioxide BUN Glucose POC Glucose Calcium Crossmatch
[2016-08-18] MEDS: BROVANA NEBU IH SCH ×2 (09:39→19:42)
[2016-08-18] MEDS: PULMICORT IH SCH ×2 (09:39→19:42)
--- NOTE | 2016-08-18 10:35 | Progress Note ---
Assessment and Plan 1. 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 History of non-obstructive coronary artery disease by cardiac cath 2011 MP I 2013 fixed septal defect echo 2014 LV EF 55 3. Anemia Plan. Patient currently stable hostile cardiac symptoms still complains about pain in his left leg. Subjective Date of service: 08/18/16 Principal diagnosis: LLE ischemia Interval history: No cardiac symptoms Objective Vital Signs Temp Pulse Pulse Pulse Pulse Pulse Pulse 08/18/16 09:50 84 08/18/16 09:36 87 08/18/16 08:25 98.7 F 08/18/16 05:26 08/18/16 04:20 98.7 F 0 L 0 L 0 L 08/18/16 04:05 88 08/18/16 01:09 98.8 F 0 L 0 L 0 L 08/17/16 22:00 08/17/16 21:30 82 08/17/16 21:29 98.8 F 0 L 0 L 0 L 08/17/16 20:15 83 08/17/16 20:04 08/17/16 20:00 121 H 08/17/16 18:40 08/17/16 18:35 102 H 08/17/16 18:30 08/17/16 18:20 100 H 08/17/16 18:05 104 H 08/17/16 18:00 08/17/16 17:50 104 H 08/17/16 17:35 105 H 08/17/16 17:30 08/17/16 17:20 100 H 08/17/16 17:15 08/17/16 17:05 105 H 08/17/16 17:00 104 H 08/17/16 16:55 93 H 08/17/16 16:50 97.3 F L 123 H 08/17/16 15:11 99.5 F 81 08/17/16 13:30 99.5 F 81 08/17/16 12:00 97.9 F 84 84 84 08/17/16 11:26 08/17/16 10:40 99.9 F H 78 Pulse Pulse Pulse Resp Resp Resp Resp 08/18/16 09:50 18 08/18/16 09:36 21 08/18/16 08:25 92 H 16 08/18/16 05:26 16 08/18/16 04:20 91 H 0 L 0 L 20 08/18/16 04:05 08/18/16 01:09 0 L 0 L 79 20 08/17/16 22:00 08/17/16 21:30 08/17/16 21:29 114 H 0 L 0 L 20 08/17/16 20:15 18 08/17/16 20:04 20 08/17/16 20:00 22 08/17/16 18:40 13 08/17/16 18:35 13 08/17/16 18:30 13 08/17/16 18:20 17 08/17/16 18:05 14 08/17/16 18:00 14 08/17/16 17:50 12 08/17/16 17:35 11 L 08/17/16 17:30 14 08/17/16 17:20 12 08/17/16 17:15 16 08/17/16 17:05 15 08/17/16 17:00 13 08/17/16 16:55 13 08/17/16 16:50 16 08/17/16 15:11 22 08/17/16 13:30 22 08/17/16 12:00 84 84 84 18 08/17/16 11:26 20 08/17/16 10:40 20 BP BP BP Pulse Ox 08/18/16 09:50 08/18/16 09:36 08/18/16 08:25 102/65 95 08/18/16 05:26 08/18/16 04:20 109/63 0/0 96 08/18/16 04:05 08/18/16 01:09 0/0 105/58 99 08/17/16 22:00 98 08/17/16 21:30 132/78 08/17/16 21:29 110/63 0/0 96 08/17/16 20:15 08/17/16 20:04 08/17/16 20:00 08/17/16 18:40 08/17/16 18:35 121/67 97 08/17/16 18:30 08/17/16 18:20 114/86 99 08/17/16 18:05 129/80 96 08/17/16 18:00 08/17/16 17:50 133/80 98 08/17/16 17:35 132/93 100 08/17/16 17:30 08/17/16 17:20 138/86 100 08/17/16 17:15 08/17/16 17:05 133/78 97 08/17/16 17:00 138/91 99 08/17/16 16:55 138/86 99 08/17/16 16:50 144/84 98 08/17/16 15:11 167/100 98 08/17/16 13:30 167/100 98 08/17/16 12:00 163/98 163/98 98 08/17/16 11:26 08/17/16 10:40 140/90 100 - Physical Examination General: Appears Well, No Apparent Distress HEENT: Positive: PERRL, Mucus Membranes Moist Neck: Positive: neck supple, trachea midline. Negative: JVD/HJR Cardiac: Positive: Reg Rate and Rhythm, S1/S2 Lungs: Positive: clear to auscultation, No Wheeze, Rales, Rhonchi Neuro: Positive: Grossly Intact Abdomen: Positive: Unremarkable, Soft Skin: Positive: Clear Extremities: Present: Other (LLE wound vac). Absent: edema
[2016-08-18] MEDS: LOPRESSOR PO SCH ×2 (10:52→21:01)
[2016-08-18] MEDS: DILAUDID IV PRN (12:05)
[2016-08-18] MEDS ORDERED: DILAUDID IV PRN (12:34)
--- NOTE | 2016-08-18 12:38 | Progress Note ---
Assessment and Plan 61 year old male with left lower extremity threatened limb status post endovascular reconstruction, open bypass around the popliteal aneurysm, and sunitha thrombectomy with fasciotomies. Interval drainage of a left quad hematoma with 150 mL in drain. Continue to have left thigh drain in place. Milked drain. Viable limb. Inicisional pain. Does not move much due to incisional pain, but on large quantities of pain medication. Discussed implications if he continues to not move (i.e. foot drop) . Continue PT. Subjective Date of service: 08/18/16 Principal diagnosis: LLE ischemia Interval history: Interval hematoma drainage. Complains of incisional pain. On large quantity of pain medication. Palpable left DP. 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 Is not moving left foot because of pain. Told patient that if he continues not to move his foot he WILL develop a foot drop. Objective - Constitutional Vitals: Vital Signs - 12hr 08/18/16 08/18/16 08/18/16 01:09 04:05 04:20 Temperature 98.8 F 98.7 F Pulse Rate 88 Pulse Rate [ Anterior Bilateral Upper Lobe] Pulse Rate [ 0 L 0 L Apical] Pulse Rate [ 0 L 0 L From Monitor] Pulse Rate [ 0 L 0 L Left Dorsalis Pedis] Pulse Rate [ 0 L 91 H Left Radial] Pulse Rate [ 0 L 0 L Right Dorsalis Pedis] Pulse Rate [ 79 0 L Right Radial] Respiratory 20 20 Rate Respiratory Rate [Anterior Bilateral Upper Lobe] Blood Pressure Blood Pressure 0/0 109/63 [Left Arm] Blood Pressure 105/58 0/0 [Right Radial Artery] O2 Sat by Pulse 99 96 Oximetry 08/18/16 08/18/16 08/18/16 05:26 08:25 09:36 Temperature 98.7 F Pulse Rate Pulse Rate [ 87 Anterior Bilateral Upper Lobe] Pulse Rate [ Apical] Pulse Rate [ From Monitor] Pulse Rate [ Left Dorsalis Pedis] Pulse Rate [ 92 H Left Radial] Pulse Rate [ Right Dorsalis Pedis] Pulse Rate [ Right Radial] Respiratory 16 16 Rate Respiratory 21 Rate [Anterior Bilateral Upper Lobe] Blood Pressure Blood Pressure 102/65 [Left Arm] Blood Pressure [Right Radial Artery] O2 Sat by Pulse 95 Oximetry 08/18/16 08/18/16 09:50 10:52 Temperature Pulse Rate Pulse Rate [ 84 Anterior Bilateral Upper Lobe] Pulse Rate [ Apical] Pulse Rate [ From Monitor] Pulse Rate [ Left Dorsalis Pedis] Pulse Rate [ Left Radial] Pulse Rate [ Right Dorsalis Pedis] Pulse Rate [ Right Radial] Respiratory Rate Respiratory 18 Rate [Anterior Bilateral Upper Lobe] Blood Pressure 102/65 Blood Pressure [Left Arm] Blood Pressure [Right Radial Artery] O2 Sat by Pulse Oximetry General appearance: Present: mild distress (incisional pain) - EENT Eyes: EOM intact ENT: hearing intact - Respiratory Respiratory effort: normal Extremities: pulses intact (left DP; right DP), normal temperature, normal color Extremity abnormal: other (neuropathy left foot ; motor fuction intact, but does not dorsiflex or plantarflex due to pain) - Gastrointestinal General gastrointestinal: Present: soft, non-tender - Psychiatric Psychiatric: appropriate mood/affect, cooperative - Labs CBC & Chem 7: 08/16/16 07:32 08/10/16 04:31 Labs: Abnormal lab results 08/18/16 08/18/16 Range/Units 00:44 05:34 Heparin Anti-Xa Level < 0.10 L 0.13 L (0.3-0.7) U.I./ml
[2016-08-18 13:51] LABS: Hematocrit 21.4 % (35.5-45.6); Hemoglobin 6.9 gm/dl (11.8-15.2)
[2016-08-18] MEDS: TYLENOL PO PRN ×2 (14:21→17:53)
[2016-08-18] MEDS: ROXICODONE PO PRN ×2 (14:22→17:52)
[2016-08-19] MEDS: ROXICODONE PO PRN ×5 (00:12→18:18)
[2016-08-19] MEDS: NEURONTIN PO SCH ×3 (07:14→21:38)
[2016-08-19] MEDS: PULMICORT IH SCH ×2 (07:55→19:39)
[2016-08-19] MEDS: BROVANA NEBU IH SCH ×2 (07:55→19:39)
[2016-08-19 08:32] LABS: Hemoglobin 6.5 gm/dl (11.8-15.2)
[2016-08-19 08:37] LABS: Hematocrit 19.3 % (35.5-45.6)
--- NOTE | 2016-08-19 09:04 | Progress Note ---
Assessment and Plan 1. 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 History of non-obstructive coronary artery disease by cardiac cath 2012 MP I 2013 fixed septal defect echo 2014 LV EF 55 3. Anemia Plan. Patient currently stable hostile cardiac symptoms still complains about pain in his left leg. Subjective Date of service: 08/19/16 Principal diagnosis: LLE ischemia Interval history: No cardiac symptoms pain in leg much better Objective Vital Signs Temp Pulse Pulse Pulse Pulse Resp Resp 08/19/16 08:14 91 H 08/19/16 07:55 86 08/19/16 07:52 83 20 08/19/16 07:51 98.9 F 85 16 08/19/16 06:53 98.7 F 79 18 08/19/16 03:30 90 08/19/16 01:28 98.6 F 78 20 08/18/16 21:34 98.8 F 94 H 20 08/18/16 19:53 87 16 08/18/16 19:43 95 H 18 08/18/16 17:41 98.9 F 103 H 18 08/18/16 13:34 99.0 F 97 H 16 08/18/16 13:25 99.0 F 97 H 16 08/18/16 10:52 08/18/16 10:00 99 H 08/18/16 09:50 84 08/18/16 09:36 87 Resp BP BP Pulse Ox 08/19/16 08:14 20 08/19/16 07:55 08/19/16 07:52 08/19/16 07:51 192/86 95 08/19/16 06:53 150/75 99 08/19/16 03:30 08/19/16 01:28 121/83 100 08/18/16 21:34 128/82 98 08/18/16 19:53 08/18/16 19:43 08/18/16 17:41 125/80 98 08/18/16 13:34 119/76 97 08/18/16 13:25 119/76 97 08/18/16 10:52 102/65 08/18/16 10:00 08/18/16 09:50 18 08/18/16 09:36 21 - Physical Examination General: Appears Well, No Apparent Distress HEENT: Positive: PERRL, Mucus Membranes Moist Neck: Positive: neck supple, trachea midline. Negative: JVD/HJR Cardiac: Positive: Regular Rate, S3. Negative: S1/S2 Lungs: Positive: clear to auscultation, No Wheeze, Rales, Rhonchi Neuro: Positive: Grossly Intact Abdomen: Positive: Unremarkable, Soft Skin: Positive: Clear Extremities: Present: Other (LLE wound vac). Absent: edema - Labs and Meds CBC 08/18/16 08/19/16 Range/Units 13:28 08:01 Hgb 6.9 L 6.5 L (11.8-15.2) gm/dl Hct 21.4 L 19.3 L* (35.5-45.6) % - Telemetry EKG Rhythm: Sinus Rhythm
[2016-08-19] MEDS: PLAVIX PO SCH (10:59)
[2016-08-19] MEDS: LOPRESSOR PO SCH ×2 (10:59→21:38)
[2016-08-19] MEDS: OxyCONTIN PO SCH ×2 (10:59→21:38)
[2016-08-19] MEDS: PEPCID PO SCH ×2 (10:59→21:38)
[2016-08-19] MEDS: NACL 0.9% 1000 ML 1,000 ML IV SCH (11:01)
[2016-08-19] MEDS ORDERED: NACL 0.9% 500 ML 500 ML IV SCH (12:55)
--- NOTE | 2016-08-19 15:50 | Progress Note ---
Assessment and Plan 61 year old male with left lower extremity threatened limb status post endovascular reconstruction, open bypass around the popliteal aneurysm, and sunitha thrombectomy with fasciotomies. Interval drainage of a left quad hematoma. Continue to have left thigh drain in place. Milked drain. Since yesterday, about 30-50 mL in drain, but not recorded. H&H decreased from surgery. Transfuse 2 units pRBC. IVF d/c. Bandages all removed. Did not remove left calf bandages because these have become integrated into the wound vac seal. Remove bandages tomorrow at calf once wound vac can be changed out. Viable limb. Inicisional pain. Does not move much due to incisional pain, but on large quantities of pain medication. Discussed implications if he continues to not move (i.e. foot drop) . Continue PT. Plan for fairchild removal tomorrow AM and porbably drain removal tomorrow. Afterwards, dispo planning with hopefully skilled inpatient rehab. Subjective Date of service: 08/19/16 Principal diagnosis: LLE ischemia Interval history: Made adjustments to pain medication, with less incisional pain. On large quantity of pain medication. Palpable left DP. 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 Told patient, again, that if he continues not to move his foot he WILL develop a foot drop. Objective - Constitutional Vitals: Vital Signs - 12hr 08/19/16 08/19/16 08/19/16 06:53 07:51 07:52 Temperature 98.7 F 98.9 F Pulse Rate Pulse Rate [ 83 Anterior Bilateral Throughout] Pulse Rate [ Anterior Bilateral Upper Lobe] Pulse Rate [ 79 85 Left Radial] Respiratory 18 16 Rate Respiratory 20 Rate [Anterior Bilateral Throughout] Respiratory Rate [Anterior Bilateral Upper Lobe] Blood Pressure 150/75 192/86 [Left Arm] O2 Sat by Pulse 99 95 Oximetry 08/19/16 08/19/16 08/19/16 07:55 08:14 12:19 Temperature 98.6 F Pulse Rate 86 Pulse Rate [ Anterior Bilateral Throughout] Pulse Rate [ 91 H Anterior Bilateral Upper Lobe] Pulse Rate [ 95 H Left Radial] Respiratory 18 Rate Respiratory Rate [Anterior Bilateral Throughout] Respiratory 20 Rate [Anterior Bilateral Upper Lobe] Blood Pressure 149/87 [Left Arm] O2 Sat by Pulse 96 Oximetry General appearance: Present: no acute distress - EENT Eyes: EOM intact ENT: hearing intact - Respiratory Respiratory effort: normal Extremities: pulses intact (left TPA intact), abnormal (wound VAC on left calf, left thigh drain noted) - Psychiatric Psychiatric: appropriate mood/affect, cooperative - Labs CBC & Chem 7: 08/19/16 08:01 08/10/16 04:31 Labs: Abnormal lab results 08/19/16 Range/Units 08:01 Hgb 6.5 L (11.8-15.2) gm/dl Hct 19.3 L* (35.5-45.6) %
[2016-08-19] MEDS: HEPARIN/ 0.45% NACL-25,000 UNIT/500 ML 25,000 UNIT/500 ML BAG IV SCH (16:34)
[2016-08-20] MEDS: ROXICODONE PO PRN ×5 (01:16→19:58)
[2016-08-20] MEDS: NEURONTIN PO SCH ×2 (05:44→14:25)
[2016-08-20] MEDS: PULMICORT IH SCH (10:10)
[2016-08-20] MEDS: BROVANA NEBU IH SCH (10:10)
[2016-08-20 10:25] LABS: Hematocrit 29.1 % (35.5-45.6); Hemoglobin 9.7 gm/dl (11.8-15.2)
[2016-08-20] MEDS: OxyCONTIN PO SCH (11:05)
[2016-08-20] MEDS: PLAVIX PO SCH (11:05)
[2016-08-20] MEDS: PEPCID PO SCH (11:05)
[2016-08-20] MEDS: LOPRESSOR PO SCH (11:05)
[2016-08-20] MEDS: HEPARIN/ 0.45% NACL-25,000 UNIT/500 ML 25,000 UNIT/500 ML BAG IV SCH (11:06)
--- NOTE | 2016-08-20 11:53 | Progress Note ---
Assessment and Plan Discharge planning and progress. Patient has only ambulated to the hallway thus far. Physical therapy to reassess this morning. If he is able to ambulate adequately to function at home, and we'll plan discharge home later today with home health physical therapy and nursing (for wound care including wound VAC). If he is unable to function adequately to be discharged home, then we will make arrangements for the patient to be transferred to a subacute rehabilitation facility. This was discussed the patient who states understanding and agrees. - Patient Problems (1) Ischemia of left lower extremity Current Visit: Yes Status: Acute (2) Compartment syndrome Current Visit: Yes Status: Acute Qualifiers: Compartment syndrome type: C Encounter type: E Compartment syndrome location: C Laterality: L Subjective Date of service: 08/20/16 Principal diagnosis: LLE ischemia Interval history: Patient is awake and alert. He is without complaint at present. His pain control has improved since Saturday. Objective - Constitutional Vitals: Vital Signs - 12hr 08/20/16 08/20/16 08/20/16 00:05 00:35 01:05 Temperature 98.8 F 98.8 F 98.7 F Pulse Rate 78 79 80 Pulse Rate [ Anterior Bilateral Throughout] Pulse Rate [ Anterior Bilateral Upper Lobe] Pulse Rate [ Left Radial] Respiratory 20 20 20 Rate Respiratory Rate [Anterior Bilateral Throughout] Respiratory Rate [Anterior Bilateral Upper Lobe] Blood Pressure 169/92 175/84 153/82 Blood Pressure [Left Arm] O2 Sat by Pulse 100 100 Oximetry 08/20/16 08/20/16 08/20/16 01:35 02:05 03:00 Temperature 98.7 F 98.6 F Pulse Rate 77 80 74 Pulse Rate [ Anterior Bilateral Throughout] Pulse Rate [ Anterior Bilateral Upper Lobe] Pulse Rate [ Left Radial] Respiratory 20 20 Rate Respiratory Rate [Anterior Bilateral Throughout] Respiratory Rate [Anterior Bilateral Upper Lobe] Blood Pressure 176/91 171/97 Blood Pressure [Left Arm] O2 Sat by Pulse Oximetry 08/20/16 08/20/16 08/20/16 06:39 08:00 10:10 Temperature 98.9 F 97.7 F Pulse Rate Pulse Rate [ 100 H Anterior Bilateral Throughout] Pulse Rate [ 100 H Anterior Bilateral Upper Lobe] Pulse Rate [ 79 89 Left Radial] Respiratory 20 20 Rate Respiratory 20 Rate [Anterior Bilateral Throughout] Respiratory 20 Rate [Anterior Bilateral Upper Lobe] Blood Pressure Blood Pressure 189/100 166/102 [Left Arm] O2 Sat by Pulse 97 100 Oximetry 08/20/16 10:20 Temperature Pulse Rate Pulse Rate [ 94 H Anterior Bilateral Throughout] Pulse Rate [ 94 H Anterior Bilateral Upper Lobe] Pulse Rate [ Left Radial] Respiratory Rate Respiratory 20 Rate [Anterior Bilateral Throughout] Respiratory 20 Rate [Anterior Bilateral Upper Lobe] Blood Pressure Blood Pressure [Left Arm] O2 Sat by Pulse Oximetry General appearance: Present: no acute distress - EENT Eyes: EOM intact ENT: hearing intact - Neck Neck: supple - Respiratory Respiratory effort: normal Extremities: no ischemia, normal temperature, abnormal (wound VAC is in place, medial thigh incision is closed with ness mild reactive erythema no active drainage, anterior thigh incision is closed with ness without erythema or drainage, bleeding drain has approximately 10 mL of bloody drainage in the bulb since yesterday) - Neurologic Neurologic: moves all extremities - Psychiatric Psychiatric: appropriate mood/affect, intact judgment & insight, cooperative - Labs CBC & Chem 7: 08/20/16 09:43 08/10/16 04:31 Labs: Abnormal lab results 08/12/16 08/19/16 08/20/16 Range/Units 11:18 17:00 09:43 Hgb 9.7 L D (11.8-15.2) gm/dl Hct 29.1 L D (35.5-45.6) % Crossmatch See Detail See Detail
--- NOTE | 2016-08-20 12:48 | Progress Note ---
Assessment and Plan s/p 4 compartment fasciotomy and repair of left popliteal artery aneurysm with a femoropopliteal bypass on plavix and IV heparin Non-obstructive CAD by cath 2011 MPI 2013 - fixed septal wall defect, no ischemia Echo 2013 - LVEF 55% Acute blood loss anemia s/p blood transfusion Nicotine dependence Medical therapy for nonobstructive disease. Otherwise, conservative cardiac management. Subjective Date of service: 08/20/16 Principal diagnosis: LLE ischemia Interval history: Patient denies chest pain and shortness of breath. Objective Vital Signs Temp Pulse Pulse Pulse Pulse Resp Resp 08/20/16 11:49 98.3 F 99 H 20 08/20/16 10:20 94 H 94 H 20 08/20/16 10:10 100 H 100 H 20 08/20/16 08:00 97.7 F 89 20 08/20/16 06:39 98.9 F 79 20 08/20/16 03:00 74 08/20/16 02:05 98.6 F 80 20 08/20/16 01:35 98.7 F 77 20 08/20/16 01:05 98.7 F 80 20 08/20/16 00:35 98.8 F 79 20 08/20/16 00:05 98.8 F 78 20 08/19/16 23:35 98.9 F 80 20 08/19/16 23:20 98.9 F 80 08/19/16 22:57 98.9 F 80 20 08/19/16 22:10 98.9 F 84 20 08/19/16 21:40 98.3 F 85 08/19/16 21:10 98.3 F 91 H 20 08/19/16 20:55 98.5 F 97 H 20 08/19/16 20:45 98.5 F 97 H 20 08/19/16 19:50 89 19 08/19/16 19:40 87 08/19/16 19:00 98.5 F 97 H 20 08/19/16 17:20 98.7 F 85 18 Resp BP BP Pulse Ox 08/20/16 11:49 175/90 97 08/20/16 10:20 20 08/20/16 10:10 20 08/20/16 08:00 166/102 100 08/20/16 06:39 189/100 97 08/20/16 03:00 08/20/16 02:05 171/97 08/20/16 01:35 176/91 08/20/16 01:05 153/82 08/20/16 00:35 175/84 100 08/20/16 00:05 169/92 100 08/19/16 23:35 167/81 08/19/16 23:20 160/88 100 08/19/16 22:57 160/88 100 08/19/16 22:10 160/93 08/19/16 21:40 176/80 08/19/16 21:10 137/90 08/19/16 20:55 141/64 94 08/19/16 20:45 141/64 94 08/19/16 19:50 08/19/16 19:40 08/19/16 19:00 141/64 94 08/19/16 17:20 134/75 97 - Physical Examination General: No Apparent Distress HEENT: Positive: PERRL Neck: Positive: trachea midline Cardiac: Positive: Reg Rate and Rhythm Extremities: Present: Other (LLE wound vac) - Labs and Meds CBC 08/20/16 Range/Units 09:43 Hgb 9.7 L D (11.8-15.2) gm/dl Hct 29.1 L D (35.5-45.6) %
--- NOTE | 2016-08-20 16:52 | Discharge Summary ---
Providers - Providers Date of Admission: 08/07/16 16:04 Date of discharge: 08/20/16 Attending physician: RADHA PETTIT 08/08/16 07:36 Consult to Physician [CONS] Routine Consulting Provider: LEIDY OVIEDO Reason For Exam: Critical care Admission Place consult to:: Dr Hewitt Notified:: Dr Molina Phone number called:: placed on list Was contact made?: Yes Time called:: 07:38 08/09/16 11:20 Consult to Physician [CONS] Routine Consulting Provider: CHRISTINA URIBE Reason For Exam: status post bypass for acute limb ischemia Place consult to:: Maya David Notified:: Maya David Phone number called:: overhead page Was contact made?: Yes If yes, spoke with:: Maya David Time called:: 11:51 08/10/16 16:32 Physical Therapy Evaluation and Treat [CONS] Routine Comment: Reason For Exam: gait training 08/13/16 16:29 Consult to Case Management [CONS] Routine Services Needed at Discharge: Wound Vac Home Health Services Notified:: case resolution specialist 08/14/16 09:13 Consult to Wound/ET Nurse [CONS] Routine Reason For Exam: wound eval/WOUND VAC PLACED 08/1308/14/16 17:52 Consult to Case Management [CONS] Routine Services Needed at Discharge: Other Notified:: Case management-Christiana Comment:: rehab eval Additional Physician Instructions: Acute Rehab eval vs HHPT 08/19/16 07:46 Consult to Dietitian/Nutrition [CONS] Routine Physician Instructions: Reason For Exam: Reason for Consult: santhosh score 15 Primary care physician: [employer]LECT[employer]IC [employer]SACTION IMPLEMENTER Hospitalization Reason for admission: Ischemic Left Lower Extremity Condition: Good Procedures: Operative Report Operative Report: Procedure: 1. Left lower extremity angiography 2. Left SFA to posterior tibial artery EKOS catheter placement. Physician: Stella Zhou MD Date of procedure: 08/07/2016 Indication: This is a 61-year-old male presenting with symptoms of left leg claudication, which had become markedly increased within the last few weeks. Outpatient revascularization was attempted, demonstrating complete occlusion of the mid SFA , with reconstitution in the mid calf via the PT and a tea. During the procedure, a significant amount of clot burden was visualized within the popliteal artery and PTT. As such, the patient was transferred to the hospital for TPA infusion catheter placement. Procedure: The patient was placed in the supine position and prepped and draped in the usual sterile fashion. A timeout was performed. The indwelling [place] Blazer catheter was removed. Arteriography of the SFA, popliteal artery, tibial peroneal trunk, and posterior tibial artery was performed via the indwelling 6 Uzbek sheath. The approximate length of the effected area was measured. A 50 cm EKos catheter was placed in the usual fashion from the SFA to the mid PT. The sheath was the secured to the skin with 2-0 Ethilon. Sterile dressings were placed, and the patient was transported to the critical care unit for infusion. Findings: Limited angiography of the left lower extremity demonstrates occlusion of the mid superficial femoral artery on the left. However, there is now faint opacification of the popliteal artery, which represents an improvement in comparison to images taken earlier today in the outpatient setting. The micro- sonic catheter spans the left SFA to mid PT. The patient will return to the [facility] tomorrow for further imaging and treatment. Operative Report Operative Report: Procedure: 1. Removal of an Ekos tPA infusion catheter from the left leg. 2. Left superficial femoral arteriography. 3. Left popliteal arteriography. 4. Arteriography of the peroneal, posterior tibial, and anterior tibial arteries of the left leg. 5. Arteriography of the left pedal vessels. 6. Penumbra mechanical thrombectomy of the left posterior tibial and peroneal arteries. 7. Left posterior tibial artery balloon angioplasty. 8. Left peroneal artery balloon angioplasty 9. Intravascular ultrasound Date of procedure: 08/08/2016 Physician: Stella Zhou MD Indication: This is a 61-year-old male who presented with severe claudication last week in the clinic. Revascularization as an outpatient was attempted, but he needed to be urgently transferred to the hospital for Ekos catheter placement. Procedure: The patient was placed in the supine position and prepped and draped in the usual sterile fashion. A timeout was performed. Local anesthetic was administered around the indwelling 6 Uzbek vascular sheath in the right groin. The indwelling EKos catheter was removed. Arteriography via the vascular sheath was performed. The V18 wire and Trailblazer O35 catheter were advanced into the posterior tibial artery and angiography was performed at multiple levels. An additional V18 wire was advanced into the peroneal artery, along with the Trailblazer catheter, and angiography was again performed. Multiple attempts were made to cannulate the anterior tibial artery ostium, but these were unsuccessful. Wires and catheters utilized included an angled 035 Trailblazer, a straight 018 Trailblazer, whisper wire, and V18 wire, amongst others. Over the whisper wire, a 1.7 mm intravascular ultrasound probe was advanced. Intravascular ultrasound of the distal superficial femoral and popliteal arteries was performed. Thereafter, it was requested that a member of the ultrasound staff come to the room and evaluate the patient's distal superficial femoral and popliteal artery with external duplex ultrasound. The decision was then made to perform mechanical/aspiration thrombectomy with a penumbra device in the posterior tibial artery. This was done, and repeat angiography was performed. Balloon angioplasty of the posterior tibial artery was then performed with a 2 mm balloon. The peroneal artery was then accessed with the V 18 and 018 Trailblazer wire. Repeat thrombectomy with the penumbra device and subsequent 2.5 mm balloon angioplasty was performed. Arteriography was performed thereafter. Multiple attempts were again made to cannulate the anterior tibial artery. All wires and catheters were withdrawn. Hemostasis was achieved with an Angio- Seal device. Sterile dressings were applied. The patient was transported to the critical care unit in stable condition. 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 Intraprocedural intravascular and duplex ultrasound findings were suggestive of an underlying popliteal artery aneurysm. As such, a CT angiogram of the left lower extremity will be performed for further evaluation. There is severe occlusion of the anterior tibial artery ostium, most likely due to a combination of acute clot with underlying chronic disease. The remainder of this vessel appears normal. There was extravasation of contrast from distal aspect of the posterior tibial artery, related to prior cannulation. The proximal PT appeared normal, while the distal half was found to have numerous filling defects, representing clot. Although thrombectomy and balloon angioplasty was performed, there was progressive attenuation of the posterior tibial artery lumen, likely due to displacement of incompletely removed distal clot. Filling defects at the ostium of the peroneal artery were resolved after angioplasty and thrombectomy. At the conclusion of the procedure, this vessel appeared normal and provided a single vessel runoff to the distal lower extremity and foot. At the conclusion of the procedure, there was poor visualization of the proximal aspect of the anterior tibial artery, also likely due to new clot burden. There is distal reconstitution of this vessel via peroneal artery collaterals. 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 Left Lower Extremity 4 Compartment Fasciotomy 2. Open Thrombectomy of Anterior Tibial Artery with 3 Demarco 3. Repair of Left Popliteal Artery Aneurysm With Femoropopliteal Bypass With Reverse Left Greater Saphenous Vein Graft And Ligation of the Popliteal Artery Surgeon: Ponce Rubi M.D. Manager Of Merchandising: None Anesthesia: Gen. endotracheal anesthesia EBL: 400 mL Counts: Correct Complications: None Condition: Stable Findings: Bulging of the muscle in all compartments however all tissue appeared healthy and viable. Partial thrombosis of the popliteal artery. Successful repair of popliteal artery aneurysm with femoropopliteal bypass and ligation of the popliteal artery above and below the knee. Multiphasic Doppler signal in the proximal anterior tibial artery. Procedure: Specimen: None Indication: Patient is a 61-year-old man with a history of a thrombosed left artery aneurysm that was lysed open. She shortly after his procedure he developed pain in the foot with decreased motor and sensation. On evaluation it was felt that he had compartment syndrome requiring emergent operative intervention. He was given the risks, benefits, and alternative procedures and consented to procedure. Operative Report Operative Report: Date of Procedure: 08/13/2016 Pre-operative Diagnosis: Open Left Leg Fasciotomy Incisions Post-operative Diagnosis: Same Procedure(s): 1. Complete Closure of Left Leg Medial Fasciotomy Incision With Partial Closure of The Proximal and Distal End of the Lateral Incision 2. Wound VAC Placement on Left Lateral Leg Incision (Wound Measures 20 x 6 x 0.5 cm) Surgeon: Ponce Rubi M.D. Manager Of Merchandising: None Anesthesia: Gen. endotracheal anesthesia EBL: 100 mL Counts: Correct Complications: None Condition: Stable Findings: The medial incision close easily without any tension. The lateral incision has significant amount of muscle swelling and I attempted to close it however the patient's dorsalis pedis pulse became weak so I decided to open up the majority of the incision and place a wound VAC. Specimen: None Indication: The patient is a 61-year-old male who had acute ischemia of his leg secondary to compartment syndrome requiring 4 compartment fasciotomy. I was able to partially close the skin on the medial incision however the remainder of that incision and the lateral incision was left open. He has significant improvement of his edema and is felt that he could have closure of the remainder of the incisions. He was given the risk, benefits, and alternative procedures and consented to procedure. Operative Report Operative Report: Date of procedure: 08/17/2016 Pre-operative diagnosis: Hematoma, left thigh Post-operative diagnosis: Same Procedure name(s): Evacuation of hematoma from the left anterior thigh Surgeon: Kimani Saldivar MD Manager Of Merchandising: None Anesthesia: Gen. endotracheal tube EBL: Less than 100 mL Operative indication: Patient is a 61-year-old man who has a known hematoma in his mid left thigh. This was diagnosed on CT scan 24 hours ago. He is developed progressive pain and discomfort in the area as well as some numbness involving the left lower extremity. He presents now for activation hematoma. Findings: Large hematoma in the mid thigh. No evidence of active bleeding. Hospital course: The patient was admitted with an ischemic left lower extremity as a result of a popliteal artery aneurysm. He was taken to the cardiac catheterization suite where the initial procedure was performed. Postoperatively he was transferred to the intensive care unit. He returned to the [facility] the following day where the second procedure was performed. This resulted in a warm foot with improved circulation. Following, Thrombolysis he was converted to anticoagulation. Unfortunately, he developed signs of a compartment syndrome. Therefore, He was taken to the operating room where a fasciotomy was performed later that night. A bypass procedure was also performed at the same time. Postoperatively a consult was placed to cardiology. A Wound vac was placed. Physical therapy was consulted. His activity levels were gradually increased. He developed significant ecchymosis and swelling to his left upper thigh. Vascular ultrasounds and a CT angiogram of the aorta with distal runoff was ordered to evaluate for possible abdominal aortic aneurysm and right lower extremity popliteal artery aneurysm (given his left popliteal artery aneurysm). He did have an AAA with bilateral common iliac arterys aneurysms, which appeared to be below surgical threshold. He did not appear to have a right popliteal artery aneurysm. The CT scan did show a sizable left groin hematoma. He was ultimately taken to the operating room where the hematoma was evacuated. His pain improved over the next few days. Discharge planning was initiated for home health nursing (with a home wound VAC), and home health physical therapy. He was converted from Heparin to Eliquis. By 08/20/2016 the patient appeared to be stable for discharge. Disposition: DC-30 STILL A PATIENT - Discharge Diagnoses (1) Ischemia of left lower extremity Status: Acute (2) Compartment syndrome Status: Acute Qualifiers: Compartment syndrome type: C Encounter type: E Compartment syndrome location: C Laterality: L Core Measure Documentation - Palliative Care Palliative Care/ Comfort Measures: Not Applicable - Core Measures Any of the following diagnoses?: none Exam - Constitutional Vitals: Temp Pulse Resp BP Pulse Ox 98.3 F 99 H 20 175/90 97 08/20/16 11:49 08/20/16 11:49 08/20/16 11:49 08/20/16 11:49 08/20/16 11:49 General appearance: Present: no acute distress - EENT Eyes: Present: EOM intact ENT: hearing intact - Neck Neck: Present: supple - Respiratory Respiratory effort: normal - Extremities Extremities: no ischemia, normal temperature, abnormal (wound vac inplace.) - Psychiatric Psychiatric: appropriate mood/affect, intact judgment & insight, cooperative - Neurologic Neurologic: other (moves all extremities, but difficulty moving the left leg.) Plan Activity: advance as tolerated Weight Bearing Status: Weight Bear as Tolerated Diet: regular Wound: keep clean and dry, per wound nurse instructions (Wound vac protocol) Durable Medical Equipment Needed Upon Discharge: Walker-Rolling Follow up with: PONCE RUBI MD [Staff Physician] - 14 Days JACINTO KENNY MD [Staff Physician] - 7 Days Prescriptions: Apixaban [Eliquis] 2.5 mg PO BID #60 tablet Clopidogrel Bisulfate [Plavix] 75 mg PO QDAY #30 tablet Oxycodone HCl/Acetaminophen [Percocet 10/325 mg] 1 each PO Q4HR PRN #80 tablet PRN Reason: Pain
[2016-08-20 17:29] VITALS: BP 157/93
[2016-08-20] MEDS ORDERED: ELIQUIS PO SCH (17:30)
--- NOTE | 2016-08-20 19:00 | Progress Note ---
Assessment and Plan Patient already discharged. - Patient Problems (1) COPD (chronic obstructive pulmonary disease) Status: Acute Qualifiers: COPD type: C Chronic bronchitis type: C Emphysema type: E (2) Coronary disease Status: Acute Qualifiers: Coronary Disease-Associated Artery/Lesion type: C [place] vs. transplanted heart: N Associated angina: A (3) Ischemia of left lower extremity Status: Acute (4) Peripheral vascular disease Status: Acute Subjective Date of service: 08/20/16 Principal diagnosis: LLE ischemia Interval history: Patient is already dischared. Objective Vital Signs - 12hr 08/20/16 08/20/16 08/20/16 08:00 10:10 10:20 Temperature 97.7 F Pulse Rate Pulse Rate [ 100 H 94 H Anterior Bilateral Throughout] Pulse Rate [ 100 H 94 H Anterior Bilateral Upper Lobe] Pulse Rate [ 89 Left Radial] Respiratory 20 Rate Respiratory 20 20 Rate [Anterior Bilateral Throughout] Respiratory 20 20 Rate [Anterior Bilateral Upper Lobe] Blood Pressure 166/102 [Left Arm] O2 Sat by Pulse 100 Oximetry 08/20/16 08/20/16 11:49 17:26 Temperature 98.3 F 98.0 F Pulse Rate 71 Pulse Rate [ Anterior Bilateral Throughout] Pulse Rate [ Anterior Bilateral Upper Lobe] Pulse Rate [ 99 H 80 Left Radial] Respiratory 20 20 Rate Respiratory Rate [Anterior Bilateral Throughout] Respiratory Rate [Anterior Bilateral Upper Lobe] Blood Pressure 175/90 157/93 [Left Arm] O2 Sat by Pulse 97 20 L Oximetry Effort: normal CBC and BMP: 08/20/16 09:43 08/10/16 04:31 ABG, PT/INR, D-dimer: PT/INR, D-dimer PT 13.2 Sec. (12.2-14.9) 08/08/16 16:49 INR 1.01 (0.87-1.13) 08/08/16 16:49 Abnormal lab findings: Abnormal Labs 08/07/16 08/07/16 08/07/16 15:34 15:34 15:34 WBC RBC Hgb Hct RDW 17.1 H Plt Count Lymph % (Auto) Charles % (Auto) Eos % (Auto) 8.6 H Charles # Eos # 0.9 H Seg Neutrophils % Seg Neuts % (Manual) Lymphocytes % (Manual) Seg Neutrophils # Seg Neutrophils # Man Lymphocytes # (Manual) Eosinophils # (Manual) APTT < 20.0 L Fibrinogen Heparin Anti-Xa Level Sodium Potassium Chloride Carbon Dioxide BUN Glucose POC Glucose Calcium Crossmatch See Detail 08/07/16 08/07/16 08/08/16 21:28 21:28 04:29 WBC 14.2 H 14.8 H RBC Hgb Hct RDW 17.2 H 16.8 H Plt Count Lymph % (Auto) 12.3 L 8.5 L Charles % (Auto) 7.5 H Eos % (Auto) 5.3 H Charles # 0.9 H 1.1 H Eos # 0.7 H 0.5 H Seg Neutrophils % 75.5 H 80.3 H Seg Neuts % (Manual) Lymphocytes % (Manual) Seg Neutrophils # 10.7 H 11.9 H Seg Neutrophils # Man Lymphocytes # (Manual) Eosinophils # (Manual) APTT Fibrinogen Heparin Anti-Xa Level Sodium Potassium Chloride Carbon Dioxide BUN 24 H Glucose POC Glucose Calcium Crossmatch 08/08/16 08/08/16 08/08/16 04:29 04:29 07:16 WBC 15.2 H RBC Hgb Hct RDW 17.3 H Plt Count Lymph % (Auto) 8.7 L Charles % (Auto) 8.2 H Eos % (Auto) Charles # 1.2 H Eos # 0.5 H Seg Neutrophils % 79.4 H Seg Neuts % (Manual) Lymphocytes % (Manual) Seg Neutrophils # 12.1 H Seg Neutrophils # Man Lymphocytes # (Manual) Eosinophils # (Manual) APTT Fibrinogen 186 L Heparin Anti-Xa Level 0.10 L Sodium Potassium Chloride Carbon Dioxide BUN 22 H Glucose 122 H POC Glucose Calcium 8.1 L Crossmatch 08/08/16 08/08/16 08/08/16 07:16 16:49 16:49 WBC RBC Hgb 9.8 L Hct 31.1 L D RDW Plt Count Lymph % (Auto) Charles % (Auto) Eos % (Auto) Charles # Eos # Seg Neutrophils % Seg Neuts % (Manual) Lymphocytes % (Manual) Seg Neutrophils # Seg Neutrophils # Man Lymphocytes # (Manual) Eosinophils # (Manual) APTT 94.0 H* Fibrinogen 189 L Heparin Anti-Xa Level < 0.10 L Sodium Potassium Chloride Carbon Dioxide BUN Glucose POC Glucose Calcium Crossmatch 08/09/16 08/09/16 08/09/16 04:46 06:51 11:02 WBC RBC Hgb 7.2 L Hct 22.4 L D RDW Plt Count Lymph % (Auto) Charles % (Auto) Eos % (Auto) Charles # Eos # Seg Neutrophils % Seg Neuts % (Manual) Lymphocytes % (Manual) Seg Neutrophils # Seg Neutrophils # Man Lymphocytes # (Manual) Eosinophils # (Manual) APTT Fibrinogen Heparin Anti-Xa Level Sodium 135 L 135 L Potassium 6.2 H* D 5.1 H Chloride 109.2 H 107.5 H Carbon Dioxide 14 L D 18 L BUN 28 H 28 H Glucose 113 H 129 H POC Glucose Calcium 6.9 L 7.1 L Crossmatch 08/10/16 08/10/16 08/12/16 04:31 04:31 05:36 WBC RBC Hgb 8.0 L 6.1 L Hct 24.1 L 18.6 L* RDW Plt Count 94 L Lymph % (Auto) Charles % (Auto) Eos % (Auto) Charles # Eos # Seg Neutrophils % Seg Neuts % (Manual) Lymphocytes % (Manual) Seg Neutrophils # Seg Neutrophils # Man Lymphocytes # (Manual) Eosinophils # (Manual) APTT Fibrinogen Heparin Anti-Xa Level Sodium Potassium Chloride 109.4 H Carbon Dioxide 18 L BUN 30 H Glucose 117 H POC Glucose Calcium 7.0 L Crossmatch 08/12/16 08/13/16 08/13/16 11:18 08:38 11:12 WBC 16.0 H RBC 3.00 L Hgb 9.3 L D Hct 27.8 L D RDW 15.4 H Plt Count Lymph % (Auto) Charles % (Auto) Eos % (Auto) Charles # Eos # Seg Neutrophils % Seg Neuts % (Manual) 91.0 H Lymphocytes % (Manual) 1.0 L Seg Neutrophils # Seg Neutrophils # Man 14.6 H Lymphocytes # (Manual) 0.2 L Eosinophils # (Manual) 0.6 H APTT Fibrinogen Heparin Anti-Xa Level 0.17 L Sodium Potassium Chloride Carbon Dioxide BUN Glucose POC Glucose Calcium Crossmatch See Detail 08/14/16 08/14/16 08/15/16 06:01 13:17 12:01 WBC 13.3 H RBC 2.59 L Hgb 7.6 L 8.0 L Hct 22.8 L 24.4 L RDW 16.2 H Plt Count Lymph % (Auto) Charles % (Auto) Eos % (Auto) Charles # Eos # Seg Neutrophils % Seg Neuts % (Manual) Lymphocytes % (Manual) Seg Neutrophils # Seg Neutrophils # Man Lymphocytes # (Manual) Eosinophils # (Manual) APTT Fibrinogen Heparin Anti-Xa Level Sodium Potassium Chloride Carbon Dioxide BUN Glucose POC Glucose 110 H Calcium Crossmatch 08/16/16 08/16/16 08/16/16 07:32 08:28 21:09 WBC RBC Hgb 8.2 L Hct 24.4 L RDW Plt Count Lymph % (Auto) Charles % (Auto) Eos % (Auto) Charles # Eos # Seg Neutrophils % Seg Neuts % (Manual) Lymphocytes % (Manual) Seg Neutrophils # Seg Neutrophils # Man Lymphocytes # (Manual) Eosinophils # (Manual) APTT Fibrinogen Heparin Anti-Xa Level < 0.10 L 0.19 L Sodium Potassium Chloride Carbon Dioxide BUN Glucose POC Glucose Calcium Crossmatch 08/18/16 08/18/16 08/18/16 00:44 05:34 13:28 WBC RBC Hgb Hct RDW Plt Count Lymph % (Auto) Charles % (Auto) Eos % (Auto) Charles # Eos # Seg Neutrophils % Seg Neuts % (Manual) Lymphocytes % (Manual) Seg Neutrophils # Seg Neutrophils # Man Lymphocytes # (Manual) Eosinophils # (Manual) APTT Fibrinogen Heparin Anti-Xa Level < 0.10 L 0.13 L 0.29 L Sodium Potassium Chloride Carbon Dioxide BUN Glucose POC Glucose Calcium Crossmatch 08/18/16 08/19/16 08/19/16 13:28 08:01 17:00 WBC RBC Hgb 6.9 L 6.5 L Hct 21.4 L 19.3 L* RDW Plt Count Lymph % (Auto) Charles % (Auto) Eos % (Auto) Charles # Eos # Seg Neutrophils % Seg Neuts % (Manual) Lymphocytes % (Manual) Seg Neutrophils # Seg Neutrophils # Man Lymphocytes # (Manual) Eosinophils # (Manual) APTT Fibrinogen Heparin Anti-Xa Level Sodium Potassium Chloride Carbon Dioxide BUN Glucose POC Glucose Calcium Crossmatch See Detail 08/20/16 09:43 WBC RBC Hgb 9.7 L D Hct 29.1 L D RDW Plt Count Lymph % (Auto) Charles % (Auto) Eos % (Auto) Charles # Eos # Seg Neutrophils % Seg Neuts % (Manual) Lymphocytes % (Manual) Seg Neutrophils # Seg Neutrophils # Man Lymphocytes # (Manual) Eosinophils # (Manual) APTT Fibrinogen Heparin Anti-Xa Level Sodium Potassium Chloride Carbon Dioxide BUN Glucose POC Glucose Calcium Crossmatch
[2016-08-20] MEDS: TYLENOL PO PRN (19:58)
== END 2016-08-20 20:17 | disposition home health service (06) | DRG 271 ==
LOC: OPU 15:25 → CC1 16:04 → 4A 08-11 14:07
PROVIDERS: ADMIT Radiology Diagnostic Radiology; ATTEND Radiology Diagnostic Radiology
PROC: B41G1ZZ Fluoroscopy of Left Lower Extremity Arteries using Low Osmolar Contrast (ICD-10-PCS; 2016-08-07)
PROC: 04HY33Z Insertion of Infusion Device into Lower Artery, Percutaneous Approach (ICD-10-PCS; 2016-08-07)
PROC: 30233N1 Transfusion of Nonautologous Red Blood Cells into Peripheral Vein, Percutaneous Approach (ICD-10-PCS; 2016-08-07)
PROC: 04CS3ZZ Extirpation of Matter from Left Posterior Tibial Artery, Percutaneous Approach (ICD-10-PCS; principal; 2016-08-08)
PROC: 04CU3ZZ Extirpation of Matter from Left Peroneal Artery, Percutaneous Approach (ICD-10-PCS; 2016-08-08)
PROC: 047S3ZZ Dilation of Left Posterior Tibial Artery, Percutaneous Approach (ICD-10-PCS; 2016-08-08)
PROC: 047U3ZZ Dilation of Left Peroneal Artery, Percutaneous Approach (ICD-10-PCS; 2016-08-08)
PROC: 0YP Anatomical Regions, Lower Extremities, Removal (ICD-10-PCS; 2016-08-08)
PROC: B41G1ZZ Fluoroscopy of Left Lower Extremity Arteries using Low Osmolar Contrast (ICD-10-PCS; 2016-08-08)
PROC: B44GZZ3 Ultrasonography of Left Lower Extremity Arteries, Intravascular (ICD-10-PCS; 2016-08-08)
PROC: 0KNT0ZZ Release Left Lower Leg Muscle, Open Approach (ICD-10-PCS; 2016-08-09)
PROC: 04CQ0ZZ Extirpation of Matter from Left Anterior Tibial Artery, Open Approach (ICD-10-PCS; 2016-08-09)
PROC: 041L09L Bypass Left Femoral Artery to Popliteal Artery with Autologous Venous Tissue, Open Approach (ICD-10-PCS; 2016-08-09)
PROC: 06BQ3ZZ Excision of Left Saphenous Vein, Percutaneous Approach (ICD-10-PCS; 2016-08-09)
PROC: 0K9R30Z Drainage of Left Upper Leg Muscle with Drainage Device, Percutaneous Approach (ICD-10-PCS; 2016-08-17)
DX: I70.212 Atherosclerosis of native arteries of extremities with intermittent claudication, left leg (principal); I74.3 Embolism and thrombosis of arteries of the lower extremities; T79.A22A Traumatic compartment syndrome of left lower extremity, initial encounter; D62 Acute posthemorrhagic anemia; I72.4 Aneurysm of artery of lower extremity; I10 Essential (primary) hypertension; I25.10 Atherosclerotic heart disease of native coronary artery without angina pectoris; J44.9 Chronic obstructive pulmonary disease, unspecified; I99.8 Other disorder of circulatory system; K21.9 Gastro-esophageal reflux disease without esophagitis
CPT/HCPCS: 36415; 37184; 37185; 37211; 37214; 37228; 37232; 37252; 71020; 75635; 75710; 76937; 80048; 82962; 85007; 85014; 85018; 85025; 85027; 85049; 85384; 85520; 85610; 85730; 86850; 86900; 86901; 86920; 93979; 94640; 94760; 96374; 99406; A4217; C1725; C1753; C1757; C1760; C1769; C1887; G8978-GP; G8979-GP; J0690; J1100; J1170; J1644; J1885; J2250; J2270; J2370; J2405; J2704; J2720; J2997; J3010; J7030; J7040; J7120; P9016; Q9967

== ENCOUNTER 2016-08-23 12:59 | Outpatient (CLI) | payer MEDICARE ==
[2016-08-23] MEDS ORDERED: XYLOCAINE TOPICAL 4% TP ONE ×2 (14:09→14:32)
== END 2016-08-23 13:00 | disposition home or self-care (01) ==
LOC: WOUND 12:59
PROVIDERS: ATTEND Nurse Practitioner
DX: T81.89XD Other complications of procedures, not elsewhere classified, subsequent encounter (principal); I70.292 Other atherosclerosis of native arteries of extremities, left leg; I10 Essential (primary) hypertension; J44.9 Chronic obstructive pulmonary disease, unspecified; K21.9 Gastro-esophageal reflux disease without esophagitis; Z87.891 Personal history of nicotine dependence; Y83.8 Other surgical procedures as the cause of abnormal reaction of the patient, or of later complication, without mention of misadventure at the time of the procedure
CPT/HCPCS: 11043; 11046; 97606; G0463; 99215

== ENCOUNTER 2016-09-03 21:57 | Observation (INO) | payer MEDICARE ==
[2016-09-03] MEDS ORDERED: PERCOCET 5/325 PO ONE (22:41)
[2016-09-03] MEDS ORDERED: VIBRAMYCIN PO ONE (22:41)
[2016-09-03 23:12] LABS: Basophils % (Auto) 0.8 % (0.0-1.8); Eosinophils % (Auto) 7.3 % (0.0-4.3); Hematocrit 25.5 % (35.5-45.6); Hemoglobin 8.2 gm/dl (11.8-15.2); Mean Corpuscular HGB Conc 32 % (32-34); Mean Corpuscular Hemoglobin 30 pg (28-32); Mean Corpuscular Volume 95 fl (84-94); Platelet Count 442 K/mm3 (140-440); Red Cell Distribution Width 18.3 % (13.2-15.2); White Blood Count 11.3 K/mm3 (4.5-11.0)
--- NOTE | 2016-09-03 23:24 | Emergency Department Report ---
ED Extremity Problem HPI - General Chief complaint: Extremity Injury, Lower Stated complaint: WOUND VAC FAILURE Time Seen by Provider: 09/03/16 22:16 Source: patient Mode of arrival: Stretcher Limitations: No Limitations - History of Present Illness Initial comments: 61-year-old male with a past medical history CHF, COPD, hypertension, recent hospitalization for compartment syndrome requiring fasciotomy after left popliteal arterial aneurysm revascularization presents to the hospital complaining of increased pain to left leg and no wound VAC drainage since it was changed today. Patient was just discharged from the hospital after being admitted 08/27-08/31. Cultures positive for MRSA and patient discharged with doxycycline. Patient did not take his evening dose. For the first time since his discharge a nurse came to the home to change his dressing. This occurred at 3:30 PM and since is changed and has been asked see no drainage from the wound care back. Prior to this patient was having significant drainage. Patient complains of some mild increase in right foot swelling and pain. Vascular doctors: Dr. Alcaraz/bAelardo - Related Data Home Medications Medication Instructions Recorded Confirmed Last Taken Cilostazol [Pletal] 50 mg PO DAILY 08/07/16 08/27/16 08/06/16 Gabapentin 600 mg PO TID 08/07/16 08/27/16 08/05/16 300mg Previous Rx's Medication Instructions Recorded Last Taken Type Apixaban [Eliquis] 5 mg PO BID #60 tablet 08/20/16 Unknown Rx Clopidogrel Bisulfate [Plavix] 75 mg PO QDAY #30 tablet 08/20/16 Unknown Rx Oxycodone HCl/Acetaminophen 1 each PO Q4HR PRN #80 tablet 08/20/16 Unknown Rx [Percocet 10/325 mg] Doxycycline [Vibramycin CAP] 100 mg PO BID #16 capsule 08/31/16 Unknown Rx Oxycodone HCl/Acetaminophen 1 each PO Q6HR PRN #60 tablet 08/31/16 Unknown Rx [Percocet 7.5/325 mg] Allergies Allergy/AdvReac Type Severity Reaction Status Date / Time No Known Allergies Allergy Verified 08/07/16 15:25 ED Review of Systems ROS: Stated complaint: WOUND VAC FAILURE Other details as noted in HPI Comment: All other systems reviewed and negative Other: Constitutional: No fevers chills Eyes: No eye pain visual changes or discharge ENT: No ear pain or throat pain Neck: Denies pain Respiratory: Denies cough wheezing shortness of breath Cardiovascular: Denies chest pain, palpitations, syncope GI: Denies abdominal pain, nausea, vomiting, diarrhea : Denies dysuria Musculoskeletal: as per hpi Skin: Denies rash, lesions, erythema Neurologic: Denies headache, numbness, weakness Psychiatric: Denies suicidal ideation, hallucinations ED Past Medical Hx - Past Medical History Previous Medical History?: Yes Hx Hypertension: Yes Hx Congestive Heart Failure: Yes Hx Diabetes: No Hx Arthritis: Yes Hx Asthma: No Hx COPD: Yes Hx HIV: No Additional medical history: Chronic back pain - Surgical History Past Surgical History?: Yes Additional Surgical History: LLE Clot removal (popliteal aneurysm). Subsequent compartment syndrome and fasciotomy - Social History Smoking Status: Current Every Day Smoker - Medications Home Medications: Home Medications Medication Instructions Recorded Confirmed Last Taken Type Cilostazol [Pletal] 50 mg PO DAILY 08/07/16 08/27/16 08/06/16 History Gabapentin 600 mg PO TID 08/07/16 08/27/16 08/05/16 History 300mg Apixaban [Eliquis] 5 mg PO BID #60 tablet 08/20/16 08/27/16 Unknown Rx Clopidogrel Bisulfate [Plavix] 75 mg PO QDAY #30 tablet 08/20/16 08/27/16 Unknown Rx Oxycodone HCl/Acetaminophen 1 each PO Q4HR PRN #80 tablet 08/20/16 08/27/16 Unknown Rx [Percocet 10/325 mg] Doxycycline [Vibramycin CAP] 100 mg PO BID #16 capsule 08/31/16 Unknown Rx Oxycodone HCl/Acetaminophen 1 each PO Q6HR PRN #60 tablet 08/31/16 Unknown Rx [Percocet 7.5/325 mg] ED Physical Exam - General Limitations: No Limitations - Other Other exam information: General: No limitations, patient is alert in no acute distress Head exam: Atraumatic, normocephalic Eyes exam: Normal appearance ENT: Moist mucous membrane, normal oropharynx Neck exam: Normal inspection, full range of motion, no meningismus nontender Respiratory exam: Clear to auscultation bilateral, no wheezes, rales, crackles Cardiovascular: Normal rate and rhythm, normal heart sounds Abdomen: Soft, nondistended, and nontender, with normal bowel sounds, no rebound, or guarding Extremity: Left leg with C2 dressing and wound VAC. Sponge gauze under C2 dressing with moderate amount of blood. No drainage from wound VAC. Trace pitting pedal edema. No warmth or erythema. Fasciotomy wounds with ness. Dopplerable and palpable DP pulse Back: Normal Inspection, full range of motion, no tenderness Neurologic: Alert, oriented x3, cranial nerves intact, no motor or sensory deficit Psychiatric: normal affect, normal mood Skin: Warm, dry, intact ED Course Vital Signs 09/03/16 22:19 Temperature 98.7 F Respiratory 17 Rate Blood Pressure 130/86 O2 Sat by Pulse 97 Oximetry - Reevaluation(s) Reevaluation #1: 09/03/16 23:24 Patient treated with Percocet and doxycycline - Consultations Consultation #1: 09/03/16 23:[address] Zhou, vascular surgeon. He recommends admission for care tomorrow. They will consult ED Medical Decision Making - Lab Data Result diagrams: 09/03/16 22:54 09/03/16 22:54 Lab Results 09/03/16 09/03/16 Range/Units 22:54 22:54 WBC 11.3 H (4.5-11.0) K/mm3 RBC 2.70 L (3.65-5.03) M/mm3 Hgb 8.2 L (11.8-15.2) gm/dl Hct 25.5 L (35.5-45.6) % MCV 95 H (84-94) fl MCH 30 (28-32) pg MCHC 32 (32-34) % RDW 18.3 H (13.2-15.2) % Plt Count 442 H (140-440) K/mm3 Lymph % (Auto) 12.4 L (13.4-35.0) % [place] % (Auto) 6.0 (0.0-7.3) % Eos % (Auto) 7.3 H (0.0-4.3) % Baso % (Auto) 0.8 (0.0-1.8) % Lymph # 1.4 (1.2-5.4) K/mm3 [place] # 0.7 (0.0-0.8) K/mm3 Eos # 0.8 H (0.0-0.4) K/mm3 Baso # 0.1 (0.0-0.1) K/mm3 Seg Neutrophils % 73.5 H (40.0-70.0) % Seg Neutrophils # 8.3 H (1.8-7.7) K/mm3 Sodium 141 (137-145) mmol/L Potassium 3.7 (3.6-5.0) mmol/L Chloride 107.4 H (98-107) mmol/L Carbon Dioxide 23 (22-30) mmol/L Anion Gap 14 mmol/L BUN 21 H (9-20) mg/dL Creatinine 1.3 (0.8-1.5) mg/dL Estimated GFR 56 ml/min BUN/Creatinine Ratio 16.15 % Glucose 105 H (75-100) mg/dL Calcium 8.5 (8.4-10.2) mg/dL - Medical Decision Making Plan to admit patient to hospital for further management of his left leg wounds. Vascular has been consulted. Antibiotics continued. Pain medication provided - Differential Diagnosis wound infection, inadequate wound VAC placement Critical Care Time: No Critical care attestation.: If time is entered above; I have spent that time in minutes in the direct care of this critically ill patient, excluding procedure time. ED Disposition Clinical Impression: H/O fasciotomy, Wound dehiscence, MRSA (methicillin resistant staph aureus) culture positive, Encounter for management of vacuum-assisted closure (VAC) of wound Disposition: OP ADMIT IP TO THIS HOSP Is pt being admited?: Yes Condition: Stable Time of Disposition: 00:01 (Dr Regalado/hosp)
[2016-09-03 23:30] LABS: BUN/Creatinine Ratio 16.15; Calcium 8.5 mg/dL (8.4-10.2); Chloride 107.4 mmol/L (98-107); Potassium 3.7 mmol/L (3.6-5.0)
[2016-09-04] MEDS ORDERED: ZOFRAN IV PRN (00:32)
[2016-09-04] MEDS ORDERED: TYLENOL PO PRN (00:33)
[2016-09-04] MEDS ORDERED: RESTORIL PO PRN ×2 (00:34→02:09)
[2016-09-04] MEDS ORDERED: UNASYN IM SCH (01:00)
[2016-09-04] MEDS ORDERED: UNASYN/NS 3 GM/100 ML 3 GM/100 ML BAG IV ONE (02:26)
--- NOTE | 2016-09-04 02:35 | History and Physical Report ---
History of Present Illness Date of examination: 09/04/16 Date of admission: 09/04/16 00:30 Chief complaint: Chief complaint is increased pain in the left leg and nondraining of the wound VAC in the left leg History of present illness: History of present illness, patient is a 61-year-old male who was recently discharged from the hospital after he had fasciotomy done to the left leg due to left popliteal artery aneurysm rupture. Patient had a wound VAC put into the left leg and it was changed yesterday by a visiting nurse but the wound VAC stopped Working patient developed increasing pain in the left leg. The vascular surgeon Dr. Zhou was consulted by the emergency room physician and he recommended putting the patient in the hospital for the wound care nurse to and adjust the wound VAC .There is no history of fever or chills. Past History Past Surgical History: Other (fasciotomy) Social history: no significant social history Family history: no significant family history Medications and Allergies Allergies Allergy/AdvReac Type Severity Reaction Status Date / Time No Known Allergies Allergy Verified 08/07/16 15:25 Home Medications Medication Instructions Recorded Confirmed Last Taken Type Cilostazol [Pletal] 50 mg PO DAILY 08/07/16 08/27/16 08/06/16 History Gabapentin 600 mg PO TID 08/07/16 08/27/16 08/05/16 History 300mg Apixaban [Eliquis] 5 mg PO BID #60 tablet 08/20/16 08/27/16 Unknown Rx Clopidogrel Bisulfate [Plavix] 75 mg PO QDAY #30 tablet 08/20/16 08/27/16 Unknown Rx Oxycodone HCl/Acetaminophen 1 each PO Q4HR PRN #80 tablet 08/20/16 08/27/16 Unknown Rx [Percocet 10/325 mg] Doxycycline [Vibramycin CAP] 100 mg PO BID #16 capsule 08/31/16 Unknown Rx Oxycodone HCl/Acetaminophen 1 each PO Q6HR PRN #60 tablet 08/31/16 Unknown Rx [Percocet 7.5/325 mg] Active Meds: Active Medications Acetaminophen (Tylenol) 650 mg PO Q4H PRN PRN Reason: For Pain/Fever/Headache Hydromorphone HCl (Dilaudid) 1 mg IV Q4H PRN PRN Reason: Pain , Severe (7-10) Ampicillin Sodium/Sulbactam Sodium (Unasyn/Ns 1.5 Gm/50 Ml) 1.5 gm in 50 mls @ 100 mls/hr IV Q6H [facility] Ondansetron HCl (Zofran) 4 mg IV Q6H PRN PRN Reason: Nausea And Vomiting Temazepam (Restoril) 15 mg PO QHS PRN PRN Reason: Insomnia Review of Systems Constitutional: no weight loss, no weight gain, no fever, no chills, no fatigue , no weakness, no malaise, no poor appetite, no daytime sleepiness Eyes: bilateral: other (NO BILATERAL EYE SYMPTOMS) Ears, nose, mouth and throat: no ear pain, no nose pain, no dental pain, no mouth pain, no headache Cardiovascular: no chest pain, no shortness of breath, no high blood pressure, no leg edema Respiratory: no cough, no shortness of breath, no pain on inspiration, no sleep apnea Gastrointestinal: no abdominal pain, no nausea, no hematemesis, no loss of appetite, no heartburn, no jaundice Genitourinary Male: no hematuria, no flank pain, no urinary frequency, no urinary hesitancy, no nocturia, no incontinence, no erectile dysfunction, no decreased libido, no testicular pain, no testicular lump, no difficulties fathering child, no polyuria Rectal: no pain, no incontinence, no bleeding, no flatulence Musculoskeletal: shooting leg pain, limitation of motion, no shooting arm pain, no low back pain, no leg numbness/tingling, no morning stiffness, no muscle cramps, no myalgias Integumentary: redness, foot/leg ulcers, no pruritis, no sores, no wounds, no jaundice, no lesions, no darkening of skin, no depigmentation, no color changes , no change in hair/nails, no brittle nails, no hirsutism Neurological: no weakness, no parathesias, no numbness, no seizures, no syncope , no lack of coordination, no vertigo, no migraines, no convulsions, no change in speech, no confusion, no double vision, no loss of vision, no hearing difficulties, no burning pain Psychiatric: no insomnia, no anhedonia Endocrine: no polydipsia, no polyuria, no thyroid mass, no palpatations Hematologic/Lymphatic: no easy bruising, no easy bleeding, no lymphadenopathy, no lymphedema, no thrombophilia Allergic/Immunologic: no urticaria, no allergic rhinitis, no persistent infections, no anaphylaxis Exam - Constitutional Vitals: Temp Pulse Resp BP Pulse Ox 98.7 F 17 130/86 97 09/03/16 22:19 09/03/16 22:19 09/03/16 22:19 09/03/16 22:19 General appearance: Present: mild distress - EENT Eyes: Present: PERRL, EOM intact. Absent: mydriasis - Neck Neck: Present: supple, normal ROM. Absent: carotid bruits - Respiratory Respiratory effort: normal - Cardiovascular Rhythm: regular Heart Sounds: Present: S1 & S2. Absent: gallop, systolic murmur, diastolic murmur, click - Extremities Extremities: no ischemia, No edema Extremity abnormal: ulceration, tenderness Peripheral Pulses: within normal limits - Abdominal General gastrointestinal: Present: soft, non-tender, non-distended. Absent: tender, distended, hepatomegaly, splenomegaly Male genitourinary: Present: deferred - Rectal Rectal Exam: deferred - Integumentary Integumentary: Present: warm - Musculoskeletal Musculoskeletal: strength equal bilaterally - Psychiatric Psychiatric: appropriate mood/affect Results - Labs CBC & Chem 7: 09/03/16 22:54 09/03/16 22:54 Labs: Laboratory Last Values WBC 11.3 K/mm3 (4.5-11.0) H 09/03/16 22:54 RBC 2.70 M/mm3 (3.65-5.03) L 09/03/16 22:54 Hgb 8.2 gm/dl (11.8-15.2) L 09/03/16 22:54 Hct 25.5 % (35.5-45.6) L 09/03/16 22:54 MCV 95 fl (84-94) H 09/03/16 22:54 MCH 30 pg (28-32) 09/03/16 22:54 MCHC 32 % (32-34) 09/03/16 22:54 RDW 18.3 % (13.2-15.2) H 09/03/16 22:54 Plt Count 442 K/mm3 (140-440) H 09/03/16 22:54 Lymph % (Auto) 12.4 % (13.4-35.0) L 09/03/16 22:54 [place] % (Auto) 6.0 % (0.0-7.3) 09/03/16 22:54 Eos % (Auto) 7.3 % (0.0-4.3) H 09/03/16 22:54 Baso % (Auto) 0.8 % (0.0-1.8) 09/03/16 22:54 Lymph # 1.4 K/mm3 (1.2-5.4) 09/03/16 22:54 [place] # 0.7 K/mm3 (0.0-0.8) 09/03/16 22:54 Eos # 0.8 K/mm3 (0.0-0.4) H 09/03/16 22:54 Baso # 0.1 K/mm3 (0.0-0.1) 09/03/16 22:54 Seg Neutrophils % 73.5 % (40.0-70.0) H 09/03/16 22:54 Seg Neutrophils # 8.3 K/mm3 (1.8-7.7) H 09/03/16 22:54 Sodium 141 mmol/L (137-145) 09/03/16 22:54 Potassium 3.7 mmol/L (3.6-5.0) 09/03/16 22:54 Chloride 107.4 mmol/L (98-107) H 09/03/16 22:54 Carbon Dioxide 23 mmol/L (22-30) 09/03/16 22:54 Anion Gap 14 mmol/L 09/03/16 22:54 BUN 21 mg/dL (9-20) H 09/03/16 22:54 Creatinine 1.3 mg/dL (0.8-1.5) 09/03/16 22:54 Estimated GFR 56 ml/min 09/03/16 22:54 BUN/Creatinine Ratio 16.15 % 09/03/16 22:54 Glucose 105 mg/dL (75-100) H 09/03/16 22:54 Calcium 8.5 mg/dL (8.4-10.2) 09/03/16 22:54 Assessment and Plan - Patient Problems (1) H/O fasciotomy Current Visit: Yes Status: Acute (2) Cellulitis of left leg Current Visit: No Status: Acute Plan to address problem: Patient will be admitted to medical surgical floor, will have wound care Noss consult in the morning to adjust the wound VAC in the left leg, patient will also continue vascular surgical consult with Dr. Zhou who was contacted by the emergency room doctor already. Patient will be on IV Dilaudid 1 mg every 3 hours as needed for pain and IV Zofran 4 mg every 6 hours for nausea vomiting. Patient will be on IV Unasyn 1.5 g every 6 hours
[2016-09-04] MEDS: UNASYN/NS 1.5 GM/50 ML 1.5 GM/50 ML BAG IV SCH ×3 (05:03→14:31)
[2016-09-04] MEDS: DILAUDID IV PRN ×2 (05:17→10:15)
--- NOTE | 2016-09-04 07:24 | Admit Criteria Form ---
Admission Criteria Documentation: WOUND COMPLICATIONS Clinical Indications for Inpatient Care (Place 'X' for any and all applicable criteria): Ongoing inpatient care may be indicated for wound complications with ANY ONE of the following (1) (15): [ ]I. Infection with ANY ONE of the following(32)(33): [ ]a) Temperature greater than 38.5 C (101.3 F) [ ]b) Evidence of tissue necrosis [ ]c) Erythema diameter expanding around wound despite treatment [ ]d) Mental status changes [ ]e) Dehydration [ ]f) Bacteremia [ ]g) Hemodynamic instability [ ]h) Suspected necrotizing fasciitis [ ]i) Rapidly spreading lesions [ ]j) High-risk location (eg, perineum, sternum, orbit) [ ]k) High-risk coexisting clinical condition as indicated by ANY ONE of the following: [ ]i) Poorly controlled diabetes [ ]ii) Cirrhosis [ ]iii) Renal failure [ ]iv) Neutropenia [ ] v) Asplenia [ ]vi) Immunosuppression (eg, AIDS, chronic corticosteroid use) [ ]viii) Other high-risk medical comorbidities [ X] II. Dehiscence requiring frequent monitoring or immediate treatment [ ] III. Hematoma with ANY ONE of the following: [ ]a) Hemodynamic instability or acute anemia due to rapid development of hematoma [ ]b) Neck hematoma causing airway compression [ ]c) Retroperitoneal hematoma [ ]d) Uncontrolled coagulopathy [ ]IV. Seroma with evidence of secondary infection and requirement for IV antibiotics [D](31) [ ]V. Pain that cannot be managed at lower level of care Extended stay beyond goal length of stay for primary condition may be needed until ALL of the following are present(1)(33)(34): [ ]a) Afebrile or fever resolving [ ]b) Hemodynamic stability [ ]c) Pain resolving [ ]d) Wound closed, continuity adequately restored, or wound manageable at lower level of care [ ]e) No drain needed or drain care manageable at lower level of care [ ]f) Wound hematoma or seroma resolving [ ]g) Antibiotics not needed or regimen manageable at lower level of care(38) [ ]h) Dressing care manageable at lower level of care [ ]i) Coagulopathy absent, resolved, or treatable at lower level of care [ ]j) Medical comorbidities resolved or treatable at lower level of care The original [facility] [employer] content created by [employer] has been revised. The portions of the content which have been revised are identified through the use of italic text or in bold, and Barbie Tillman has neither reviewed nor approved the modified material. All other unmodified content is copyright [facility] [employer]. Please see references footnoted in the original [facility] [employer] edition 2016 Admission Criteria Met: Yes
[2016-09-04] MEDS ORDERED: ELIQUIS PO SCH (10:00)
[2016-09-04] MEDS: NEURONTIN PO SCH ×2 (10:17→14:31)
[2016-09-04 12:32] VITALS: BP 177/99
--- NOTE | 2016-09-04 13:17 | Consultation ---
History of Present Illness - Reason for Consult Consult date: 09/04/16 [facility] evaluation Requesting physician: KAUSHIK PERKINS - History of Present Illness This patient is a 61-year-old male that was admitted via the emergency room on 09/03/2016 due to increasing amounts of pain to his left lower extremity and a poorly functioning wound VAC. The Patient is well-known to our service. He was recently hospitalized due to an ischemic left lower extremity. He underwent percutaneous revascularization. 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 Following revascularization he subsequently developed a compartment syndrome and was taken to the operating room where a fasciotomy was performed. At that same time his popliteal artery aneurysm was repaired by a femoropopliteal bypass using a reversed ipsilateral greater saphenous vein graft. After his initial discharge, he was followed by the outpatient wound care clinic as well as home health nursing for local wound care (including a wound vac for his fasciotomy sites). On his 1st visit by the home health nurse, his bandages were partially removed and he was sent immediately to the hospital for further evaluation. During the second hospitalization his leg was further debrided and the wound VAC was reapplied. Wound cultures suggested he had MRSA. He was started on oral antibiotics. The patient once again was discharged from the hospital. 3 days later his wound VAC was changed by the home health nurse. Later that evening he complained of discomfort, increased swelling, and concerns of a poorly functioning wound VAC. The home health nurse was contacted. He states the nurse recommended he return to the emergency room for further evaluation. He apparently had minor bleeding from the wound with the dressing change. The Nurse felt he or she would not be able to manage this adequately in an outpt setting. He questioned the urgency of the visit, and was told he "could lose his leg" if he did not seek urgent follow-up in the emergency room. He agreed to comply and followed up in the emergency room. He was subsequently evaluated and admitted. A vascular surgery consult has been requested to further evaluate. Past History Past Medical History: COPD Past Surgical History: Other (Left lower extremity angiography with EKOS thrombolysis, mechanical thrombectomy, posterior tibial and peroneal artery angioplasties, 4 compartment fasciotomy, repair of left popliteal artery aneurysm with a femoral-popliteal artery bypass using a reverse saphenous vein graft, complete closure of the left medial fasciotomy incision with a partial closure of the lateral incision, wound debridement of the lateral fasciotomy incision with wound VAC placement) Social history: , lives with family. denies: smoking (recently quit smoking), alcohol abuse (drinks alcohol socially) Family history: CAD, cancer, diabetes, other (vascular disease) Medications and Allergies Allergies Allergy/AdvReac Type Severity Reaction Status Date / Time No Known Allergies Allergy Verified 08/07/16 15:25 Home Medications Medication Instructions Recorded Confirmed Last Taken Type Cilostazol [Pletal] 50 mg PO DAILY 08/07/16 08/27/16 08/06/16 History Gabapentin 600 mg PO TID 08/07/16 08/27/16 08/05/16 History 300mg Apixaban [Eliquis] 5 mg PO BID #60 tablet 08/20/16 08/27/16 Unknown Rx Clopidogrel Bisulfate [Plavix] 75 mg PO QDAY #30 tablet 08/20/16 08/27/16 Unknown Rx Oxycodone HCl/Acetaminophen 1 each PO Q4HR PRN #80 tablet 08/20/16 08/27/16 Unknown Rx [Percocet 10/325 mg] Doxycycline [Vibramycin CAP] 100 mg PO BID #16 capsule 08/31/16 Unknown Rx Oxycodone HCl/Acetaminophen 1 each PO Q6HR PRN #60 tablet 08/31/16 Unknown Rx [Percocet 7.5/325 mg] Active Meds: Active Medications Acetaminophen (Tylenol) 650 mg PO Q4H PRN PRN Reason: For Pain/Fever/Headache Apixaban (Eliquis) 5 mg PO BID [facility] PRN Reason: Protocol Last Admin: 09/04/16 10:17 Dose: 5 mg Gabapentin (Neurontin) 600 mg PO Q8HR [facility] Last Admin: 09/04/16 10:17 Dose: 600 mg Hydromorphone HCl (Dilaudid) 1 mg IV Q4H PRN PRN Reason: Pain , Severe (7-10) Last Admin: 09/04/16 10:15 Dose: 1 mg Ampicillin Sodium/Sulbactam Sodium (Unasyn/Ns 1.5 Gm/50 Ml) 1.5 gm in 50 mls @ 100 mls/hr IV Q6H [facility] Last Admin: 09/04/16 09:00 Dose: 100 mls/hr Ondansetron HCl (Zofran) 4 mg IV Q6H PRN PRN Reason: Nausea And Vomiting Temazepam (Restoril) 15 mg PO QHS PRN PRN Reason: Insomnia Review of Systems All systems: negative Exam - Constitutional Vitals: Temp Pulse Resp BP Pulse Ox 98.2 F 80 20 177/99 98 09/04/16 12:00 09/04/16 12:00 09/04/16 12:00 09/04/16 12:00 09/04/16 12:00 General appearance: Present: no acute distress - EENT Eyes: Present: EOM intact ENT: hearing intact - Neck Neck: Present: supple - Respiratory Respiratory effort: normal - Extremities Extremities: no ischemia (his foot is warm and appears to be adequately perfused there is no skin color changes nor new skin lesions), normal temperature, abnormal (his incisions appear to be healing well, ness are in place, no overt erythema other than mild reactivity around the ness themselves, his left lateral thigh incision as well as wound VAC in place. This appears to be functioning adequately.) - Musculoskeletal Musculoskeletal: other (he has paresthesias to his left foot) - Psychiatric Psychiatric: appropriate mood/affect, intact judgment & insight, cooperative Results - Labs CBC & Chem 7: 09/03/16 22:54 09/03/16 22:54 Assessment and Plan This patient is well-known to our service. He status post multiple procedures to revascularize his left lower extremity. He recently developed a compartment syndrome requiring fasciotomy. He is receiving local wound care by combination of the outpatient wound care clinic and home health nursing. The wound VAC was changed yesterday by his home health nurse. Later that evening he developed pain, swelling, and concerns of a wound VAC malfunction. Home health nursing service was contacted. It was recommended he return to the emergency room for further evaluation. He was subsequently admitted and a vascular surgery consult has been requested to further evaluate. His wound VAC is in place and appears to be functioning adequately. His foot is warm and appears to be adequately perfused. I discussed possible etiologies of his discomfort and swelling, but everything appeared to doing well at this point. No need for urgent vascular surgery intervention at this point. Recommended removal of his ness prior to d/c. Recommend he continue antibiotics as previously prescribed (per Hospitalist recommendations). Continue local wound care with the wound vac upon d/c. He may benefit from outpt evaluation by a plastic surgeon to consider skin grafting. Discussed with the binder caser who will try and determine any limitations which may be compromising the pt's care as an outpt. He will f/u in our office in the next 1-2 weeks. - Patient Problems (1) Encounter for management of vacuum-assisted closure (VAC) of wound Current Visit: Yes Status: Acute (2) H/O fasciotomy Current Visit: Yes Status: Acute (3) MRSA (methicillin resistant staph aureus) culture positive Current Visit: Yes Status: Acute (4) COPD (chronic obstructive pulmonary disease) Current Visit: No Status: Chronic Qualifiers: COPD type: C Chronic bronchitis type: C Emphysema type: unspecified Qualified Code(s): J43.9 - Emphysema, unspecified (5) Peripheral vascular disease Current Visit: No Status: Chronic
--- NOTE | 2016-09-04 13:45 | Discharge Summary ---
Providers - Providers Date of Admission: 09/04/16 00:30 Date of discharge: 09/04/16 Attending physician: KAUSHIK PERKINS 09/04/16 06:34 Consult to Wound/ET Nurse [CONS] Routine Reason For Exam: wound eval Primary care physician: POWER GENERATION TECHNICIAN Hospitalization Condition: Good Hospital course: Patient presented with vascular wound that was already treated as outpatient with wound VAC. The wound VAC was not operating effectively and therefore nursing told patient to come to the ED. Patient was evaluated by surgery and vascular surgery and local wound care was initiated. The wound VAC was already working properly induced his report position repositioned and patient was cleared to be discharged home. Disposition: DC-01 TO HOME OR SELFCARE - Discharge Diagnoses (1) Encounter for management of vacuum-assisted closure (VAC) of wound Status: Acute (2) Cellulitis of left leg Status: Acute Core Measure Documentation - Palliative Care Palliative Care/ Comfort Measures: Not Applicable - Core Measures Any of the following diagnoses?: none Exam - Constitutional Vitals: Temp Pulse Resp BP Pulse Ox 98.2 F 80 20 177/99 98 09/04/16 12:00 09/04/16 12:00 09/04/16 12:00 09/04/16 12:00 09/04/16 12:00 General appearance: Present: no acute distress, well-nourished - EENT Eyes: Present: PERRL ENT: hearing intact, clear oral mucosa - Neck Neck: Present: supple, normal ROM - Respiratory Respiratory effort: normal Respiratory: bilateral: CTA - Cardiovascular Heart Sounds: Present: S1 & S2. Absent: rub, click - Extremities Extremities: pulses symmetrical, No edema Extremity abnormal: other (left leg. New aspect of the leg has linear wound with wound VAC and is actively draining fluid. The most medial aspect of left leg has a linear scar with ness no evidence of infection.) Peripheral Pulses: within normal limits - Abdominal General gastrointestinal: Present: soft, non-tender, non-distended, normal bowel sounds Male genitourinary: Present: normal - Integumentary Integumentary: Present: clear, warm, dry - Musculoskeletal Musculoskeletal: gait normal, strength equal bilaterally - Psychiatric Psychiatric: appropriate mood/affect, intact judgment & insight - Neurologic Neurologic: CNII-XII intact, moves all extremities Plan Activity: no restrictions Weight Bearing Status: Weight Bear as Tolerated Diet: regular Wound: per wound nurse instructions Follow up with: PRIMARY CARE, [Primary Care Provider] - 7 Days
[2016-09-04] MEDS ORDERED: NON-FORMULARY (Gabapentin 600 MG) PO SCH (14:00)
== END 2016-09-04 14:40 | disposition home or self-care (01) ==
LOC: ED 21:57 → INTOOBSV 09-04 00:30 → 3A 09-04 00:30
PROVIDERS: ADMIT Internal Medicine; ATTEND Internal Medicine
DX: S81.802D Unspecified open wound, left lower leg, subsequent encounter (principal); L03.116 Cellulitis of left lower limb; J44.9 Chronic obstructive pulmonary disease, unspecified; I73.9 Peripheral vascular disease, unspecified; X58.XXXA Exposure to other specified factors, initial encounter; Z98.890 Other specified postprocedural states; Z82.49 Family history of ischemic heart disease and other diseases of the circulatory system; Z83.3 Family history of diabetes mellitus; Z80.9 Family history of malignant neoplasm, unspecified
CPT/HCPCS: 36415; 80048; 85025; 96365; 96375; 96376; 99285; G0378; J0295; J1170

== ENCOUNTER 2016-09-06 13:09 | Outpatient (CLI) | payer MEDICARE ==
[~2016-09-06 13:09] MED LIST changes: -ANCEF/STERILE WATER 2 GM/20 ML 2 GM/20 ML SYRINGE IV ONE; -CATHFLO 20 MG in NACL 0.9% 500 ML 500 ML EKOSDLUMEN SCH; -HEPARIN/ 0.45% NACL-25,000 UNIT/500 ML 25,000 UNIT/500 ML BAG SHEATH SCH; -HEPARIN/NS 5000 UNIT/500ML(CATH LAB) 1,000 ML IR ONE; -MORPHINE IV PRN; -NACL 0.9% 1000 ML 1,000 ML EKOSCLUMEN SCH; -NACL 0.9% 1000 ML 1,000 ML IV SCH; -NACL 0.9% 1000 ML 1,000 ML SHEATH SCH; +SILVER NITRATE TP ONE; -ZOFRAN IV PRN
[2016-09-06] MEDS ORDERED: XYLOCAINE TOPICAL 4% TP ONE ×2 (13:32→13:46)
[2016-09-06] MEDS ORDERED: SILVER NITRATE TP ONE (13:55)
== END 2016-09-06 13:10 | disposition home or self-care (01) ==
LOC: WOUND 13:09
PROVIDERS: ATTEND Surgery
DX: T81.89XD Other complications of procedures, not elsewhere classified, subsequent encounter (principal); I10 Essential (primary) hypertension; I70.292 Other atherosclerosis of native arteries of extremities, left leg; J44.9 Chronic obstructive pulmonary disease, unspecified; Z87.891 Personal history of nicotine dependence; Y83.8 Other surgical procedures as the cause of abnormal reaction of the patient, or of later complication, without mention of misadventure at the time of the procedure
CPT/HCPCS: 97606

== ENCOUNTER 2016-09-13 12:35 | Outpatient (CLI) | payer MEDICARE ==
[2016-09-13] MEDS ORDERED: XYLOCAINE TOPICAL 4% TP ONE ×2 (13:15→14:02)
[2016-09-13] MEDS ORDERED: AD OINTMENT TP ONE (14:11)
[2016-09-14] MEDS ORDERED: AD OINTMENT TP SCH (10:00)
== END 2016-09-13 12:36 | disposition home or self-care (01) ==
LOC: WOUND 12:35
PROVIDERS: ATTEND Nurse Practitioner
DX: T81.89XD Other complications of procedures, not elsewhere classified, subsequent encounter (principal); I70.292 Other atherosclerosis of native arteries of extremities, left leg; J44.9 Chronic obstructive pulmonary disease, unspecified; K21.9 Gastro-esophageal reflux disease without esophagitis; I10 Essential (primary) hypertension; Z87.891 Personal history of nicotine dependence; Y83.8 Other surgical procedures as the cause of abnormal reaction of the patient, or of later complication, without mention of misadventure at the time of the procedure
CPT/HCPCS: 97606; A6250

== ENCOUNTER 2016-09-20 11:38 | Outpatient (CLI) | payer MEDICARE ==
[2016-09-20] MEDS ORDERED: XYLOCAINE TOPICAL 4% TP ONE ×2 (12:09→12:28)
[2016-09-20] MEDS ORDERED: SILVER NITRATE TP ONE ×2 (13:02→13:05)
== END 2016-09-20 11:39 | disposition home or self-care (01) ==
LOC: WOUND 11:38
PROVIDERS: ATTEND Nurse Practitioner
DX: T81.89XD Other complications of procedures, not elsewhere classified, subsequent encounter (principal); J44.9 Chronic obstructive pulmonary disease, unspecified; I10 Essential (primary) hypertension; Z87.891 Personal history of nicotine dependence; Y83.8 Other surgical procedures as the cause of abnormal reaction of the patient, or of later complication, without mention of misadventure at the time of the procedure
CPT/HCPCS: 17250

== ENCOUNTER 2016-09-24 14:00 | Outpatient (CLI) | payer MEDICARE ==
[2016-09-24] MEDS ORDERED: XYLOCAINE TOPICAL 4% TP ONE ×2 (14:37→14:47)
[2016-09-24] MEDS ORDERED: SILVER NITRATE TP ONE ×2 (14:44→14:47)
== END 2016-09-24 14:01 | disposition home or self-care (01) ==
LOC: WOUND 14:00
PROVIDERS: ATTEND Internal Medicine
DX: T81.89XD Other complications of procedures, not elsewhere classified, subsequent encounter (principal); I72.4 Aneurysm of artery of lower extremity; I70.292 Other atherosclerosis of native arteries of extremities, left leg; I10 Essential (primary) hypertension; J44.9 Chronic obstructive pulmonary disease, unspecified; Z87.891 Personal history of nicotine dependence; Y83.8 Other surgical procedures as the cause of abnormal reaction of the patient, or of later complication, without mention of misadventure at the time of the procedure
CPT/HCPCS: 17250; G0463; 99213

== ENCOUNTER 2016-09-27 11:03 | Outpatient (CLI) | payer MEDICARE ==
[2016-09-27] MEDS ORDERED: XYLOCAINE TOPICAL 4% TP ONE ×2 (11:42)
[2016-09-27] MEDS ORDERED: SILVER NITRATE TP ONE ×2 (12:24→15:50)
== END 2016-09-27 11:04 | disposition home or self-care (01) ==
LOC: WOUND 11:03
PROVIDERS: ATTEND Nurse Practitioner
DX: T81.89XD Other complications of procedures, not elsewhere classified, subsequent encounter (principal); I70.292 Other atherosclerosis of native arteries of extremities, left leg; J44.9 Chronic obstructive pulmonary disease, unspecified; K21.9 Gastro-esophageal reflux disease without esophagitis; I10 Essential (primary) hypertension; Z87.891 Personal history of nicotine dependence; Y83.8 Other surgical procedures as the cause of abnormal reaction of the patient, or of later complication, without mention of misadventure at the time of the procedure
CPT/HCPCS: 17250

== ENCOUNTER 2016-10-04 13:05 | Outpatient (CLI) | payer MEDICARE ==
[2016-10-04] MEDS ORDERED: XYLOCAINE TOPICAL 4% TP ONE ×2 (13:20)
[2016-10-04] MEDS ORDERED: SILVER NITRATE TP ONE ×2 (13:33→13:58)
== END 2016-10-04 13:06 | disposition home or self-care (01) ==
LOC: WOUND 13:05
PROVIDERS: ATTEND Surgery
DX: T81.89XD Other complications of procedures, not elsewhere classified, subsequent encounter (principal); I70.292 Other atherosclerosis of native arteries of extremities, left leg; I10 Essential (primary) hypertension; M79.A22 Nontraumatic compartment syndrome of left lower extremity; J44.9 Chronic obstructive pulmonary disease, unspecified; I72.4 Aneurysm of artery of lower extremity; Z87.891 Personal history of nicotine dependence; Y83.8 Other surgical procedures as the cause of abnormal reaction of the patient, or of later complication, without mention of misadventure at the time of the procedure
CPT/HCPCS: 17250

== ENCOUNTER 2016-10-08 10:30 | Outpatient (CLI) | payer MEDICARE ==
[2016-10-08] MEDS ORDERED: SILVER NITRATE TP ONE ×2 (10:38→12:04)
== END 2016-10-08 10:31 | disposition home or self-care (01) ==
LOC: WOUND 10:30
PROVIDERS: ATTEND Internal Medicine
DX: T81.89XD Other complications of procedures, not elsewhere classified, subsequent encounter (principal); I70.292 Other atherosclerosis of native arteries of extremities, left leg; J44.9 Chronic obstructive pulmonary disease, unspecified; I10 Essential (primary) hypertension; Z87.891 Personal history of nicotine dependence; Y83.8 Other surgical procedures as the cause of abnormal reaction of the patient, or of later complication, without mention of misadventure at the time of the procedure
CPT/HCPCS: 99213; G0463

== ENCOUNTER 2016-10-11 11:02 | Outpatient (CLI) | payer MEDICARE ==
[2016-10-11] MEDS ORDERED: XYLOCAINE TOPICAL 2% TP ONE ×2 (11:49→12:08)
[2016-10-11] MEDS ORDERED: SILVER NITRATE TP ONE ×2 (12:14→12:23)
== END 2016-10-11 11:03 | disposition home or self-care (01) ==
LOC: WOUND 11:02
PROVIDERS: ATTEND Nurse Practitioner
DX: T81.89XD Other complications of procedures, not elsewhere classified, subsequent encounter (principal); I70.292 Other atherosclerosis of native arteries of extremities, left leg; I10 Essential (primary) hypertension; J44.9 Chronic obstructive pulmonary disease, unspecified; Z87.891 Personal history of nicotine dependence; Y83.8 Other surgical procedures as the cause of abnormal reaction of the patient, or of later complication, without mention of misadventure at the time of the procedure
CPT/HCPCS: 17250

== ENCOUNTER 2016-10-18 10:56 | Outpatient (CLI) | payer MEDICARE ==
[2016-10-18] MEDS ORDERED: SILVER NITRATE TP ONE ×2 (11:22→11:29)
[2016-10-18] MEDS ORDERED: XYLOCAINE TOPICAL 4% TP ONE ×2 (11:22→11:28)
== END 2016-10-18 10:57 | disposition home or self-care (01) ==
LOC: WOUND 10:56
PROVIDERS: ATTEND Nurse Practitioner
DX: T81.89XD Other complications of procedures, not elsewhere classified, subsequent encounter (principal); I70.292 Other atherosclerosis of native arteries of extremities, left leg; I10 Essential (primary) hypertension; J44.9 Chronic obstructive pulmonary disease, unspecified; Z87.891 Personal history of nicotine dependence; Y83.8 Other surgical procedures as the cause of abnormal reaction of the patient, or of later complication, without mention of misadventure at the time of the procedure
CPT/HCPCS: 17250

== ENCOUNTER 2016-10-25 10:57 | Outpatient (CLI) | payer MEDICARE ==
[2016-10-25] MEDS ORDERED: XYLOCAINE TOPICAL 4% TP ONE ×2 (11:52→12:08)
[2016-10-25] MEDS ORDERED: SILVER NITRATE TP ONE (12:43)
== END 2016-10-25 10:58 | disposition home or self-care (01) ==
LOC: WOUND 10:57
PROVIDERS: ATTEND Nurse Practitioner
DX: T81.89XD Other complications of procedures, not elsewhere classified, subsequent encounter (principal); I70.292 Other atherosclerosis of native arteries of extremities, left leg; J44.9 Chronic obstructive pulmonary disease, unspecified; K21.9 Gastro-esophageal reflux disease without esophagitis; I10 Essential (primary) hypertension; Z87.891 Personal history of nicotine dependence; Y83.8 Other surgical procedures as the cause of abnormal reaction of the patient, or of later complication, without mention of misadventure at the time of the procedure
CPT/HCPCS: 17250

== ENCOUNTER 2016-11-01 10:54 | Outpatient (CLI) | payer MEDICARE ==
[2016-11-01] MEDS ORDERED: XYLOCAINE TOPICAL 2% TP ONE (11:20)
[2016-11-01] MEDS ORDERED: SILVER NITRATE TP ONE ×2 (11:43→16:08)
[2016-11-01] MEDS ORDERED: XYLOCAINE TOPICAL 4% TP ONE (13:00)
== END 2016-11-01 10:55 | disposition home or self-care (01) ==
LOC: WOUND 10:54
PROVIDERS: ATTEND Nurse Practitioner
DX: T81.89XD Other complications of procedures, not elsewhere classified, subsequent encounter (principal); I70.292 Other atherosclerosis of native arteries of extremities, left leg; I10 Essential (primary) hypertension; J44.9 Chronic obstructive pulmonary disease, unspecified; K21.9 Gastro-esophageal reflux disease without esophagitis; Z87.891 Personal history of nicotine dependence; Y83.8 Other surgical procedures as the cause of abnormal reaction of the patient, or of later complication, without mention of misadventure at the time of the procedure
CPT/HCPCS: 17250

== ENCOUNTER 2016-11-08 10:47 | Outpatient (CLI) | payer MEDICARE ==
[2016-11-08] MEDS ORDERED: XYLOCAINE TOPICAL 4% TP ONE ×2 (11:40→11:50)
== END 2016-11-08 10:48 | disposition home or self-care (01) ==
LOC: WOUND 10:47
PROVIDERS: ATTEND Nurse Practitioner
DX: T81.89XD Other complications of procedures, not elsewhere classified, subsequent encounter (principal); I70.292 Other atherosclerosis of native arteries of extremities, left leg; I10 Essential (primary) hypertension; J44.9 Chronic obstructive pulmonary disease, unspecified; K21.9 Gastro-esophageal reflux disease without esophagitis; Z87.891 Personal history of nicotine dependence; Y83.8 Other surgical procedures as the cause of abnormal reaction of the patient, or of later complication, without mention of misadventure at the time of the procedure

== ENCOUNTER 2016-11-22 10:48 | Outpatient (CLI) | payer MEDICARE ==
[2016-11-22] MEDS ORDERED: XYLOCAINE TOPICAL 4% TP ONE ×2 (11:12→11:30)
[2016-11-22] MEDS ORDERED: SILVER NITRATE TP ONE ×3 (11:46→11:50)
== END 2016-11-22 10:49 | disposition home or self-care (01) ==
LOC: WOUND 10:48
PROVIDERS: ATTEND Nurse Practitioner
DX: T81.89XD Other complications of procedures, not elsewhere classified, subsequent encounter (principal); I70.292 Other atherosclerosis of native arteries of extremities, left leg; I10 Essential (primary) hypertension; J44.9 Chronic obstructive pulmonary disease, unspecified; Z87.891 Personal history of nicotine dependence; Y83.8 Other surgical procedures as the cause of abnormal reaction of the patient, or of later complication, without mention of misadventure at the time of the procedure
CPT/HCPCS: 17250

== ENCOUNTER 2016-11-29 13:04 | Outpatient (CLI) | payer MEDICARE ==
[2016-11-29] MEDS ORDERED: XYLOCAINE TOPICAL 4% TP ONE ×2 (13:09→13:15)
== END 2016-11-29 13:05 | disposition home or self-care (01) ==
LOC: WOUND 13:04
PROVIDERS: ATTEND Nurse Practitioner
DX: T81.89XD Other complications of procedures, not elsewhere classified, subsequent encounter (principal); I70.292 Other atherosclerosis of native arteries of extremities, left leg; I10 Essential (primary) hypertension; J44.9 Chronic obstructive pulmonary disease, unspecified; K21.9 Gastro-esophageal reflux disease without esophagitis; Z87.891 Personal history of nicotine dependence; Y83.8 Other surgical procedures as the cause of abnormal reaction of the patient, or of later complication, without mention of misadventure at the time of the procedure

== ENCOUNTER 2016-12-01 12:57 | Inpatient (IN) | payer MEDICARE ==
--- NOTE | 2016-12-01 13:40 | XRay Report ---
AP CHEST: HISTORY: sepsis AP view of the chest demonstrates a normal mediastinal and cardiac contour with clear lungs and normal bony and soft tissue structures. IMPRESSION: Unremarkable AP chest.
[2016-12-01 13:59] LABS: Basophils % (Auto) 0.7 % (0.0-1.8); Eosinophils % (Auto) 0.9 % (0.0-4.3); Hematocrit 46.1 % (35.5-45.6); Hemoglobin 15.1 gm/dl (11.8-15.2); Mean Corpuscular HGB Conc 33 % (32-34); Mean Corpuscular Hemoglobin 29 pg (28-32); Mean Corpuscular Volume 89 fl (84-94); Platelet Count 330 K/mm3 (140-440); Red Cell Distribution Width 15.8 % (13.2-15.2); White Blood Count 14.9 K/mm3 (4.5-11.0)
[2016-12-01 14:11] LABS: INR 0.86 (0.87-1.13)
[2016-12-01 14:20] LABS: Alanine Aminotransferase 9 units/L (7-56); Albumin 3.5 g/dL (3.9-5); Albumin/Globulin Ratio 0.9 %; Alkaline Phosphatase 137 units/L (35-129); Anion Gap 20 mmol/L; BUN/Creatinine Ratio 21; Bilirubin,Total < 0.20 mg/dL (0.1-1.2); Blood Urea Nitrogen 25 mg/dL (9-20); Calcium 9.1 mg/dL (8.4-10.2); Carbon Dioxide 21 mmol/L (22-30); Chloride 99.5 mmol/L (98-107); Glucose 101 mg/dL (75-100); Potassium 4.5 mmol/L (3.6-5.0); Sodium 136 mmol/L (137-145); Total Protein 7.6 g/dL (6.3-8.2)
[2016-12-01] MEDS ORDERED: VANCOMYCIN/NS 1 GM/250 ML 1 GM/250 ML BAG IV ONE (17:26)
--- NOTE | 2016-12-01 17:32 | Emergency Department Report ---
ED Lower Extremity HPI - General Chief Complaint: Extremity Injury, Lower Stated Complaint: LEFT LEG PAIN, KNOT BEHIND LEG Time Seen by Provider: 12/01/16 17:05 Source: patient Mode of arrival: Ambulatory Limitations: No Limitations - History of Present Illness Initial Comments: 61-year-old male with history of left leg vascular bypass done in July here with complaints of 2 days of redness and pain in the left leg. Patient states that he started having a new wound dressing placed on and then noticed some swelling and redness on the leg on Saturday. He feels that the leg is painful and red. He denies fevers or chills. No nausea or vomiting. MD Complaint: leg injury -: Gradual, days(s) (2) Place: home Improves With: nothing Worsens With: nothing Associated Symptoms: denies: swelling, numbness, tingling, unable to bear weight , able to partially bear weight, ambulatory - Related Data Home Medications Medication Instructions Recorded Confirmed Last Taken Cilostazol [Pletal] 50 mg PO DAILY 08/07/16 08/27/16 08/06/16 Gabapentin 600 mg PO TID 08/07/16 08/27/16 08/05/16 300mg Previous Rx's Medication Instructions Recorded Last Taken Type Apixaban [Eliquis] 5 mg PO BID #60 tablet 08/20/16 Unknown Rx Clopidogrel Bisulfate [Plavix] 75 mg PO QDAY #30 tablet 08/20/16 Unknown Rx Oxycodone HCl/Acetaminophen 1 each PO Q4HR PRN #80 tablet 08/20/16 Unknown Rx [Percocet 10/325 mg] Doxycycline [Vibramycin CAP] 100 mg PO BID #16 capsule 08/31/16 Unknown Rx Oxycodone HCl/Acetaminophen 1 each PO Q6HR PRN #60 tablet 08/31/16 Unknown Rx [Percocet 7.5/325 mg] Apixaban [Eliquis] 5 mg PO BID tablet 09/04/16 Unknown Rx Gabapentin [Neurontin] 600 mg PO Q8HR capsule 09/04/16 Unknown Rx Allergies Allergy/AdvReac Type Severity Reaction Status Date / Time No Known Allergies Allergy Verified 12/01/16 13:06 ED Review of Systems ROS: Stated complaint: LEFT LEG PAIN, KNOT BEHIND LEG Other details as noted in HPI Comment: All other systems reviewed and negative Constitutional: denies: chills, fever ENT: denies: ear pain, throat pain Respiratory: denies: cough, orthopnea Cardiovascular: denies: chest pain, palpitations Gastrointestinal: denies: abdominal pain, nausea Skin: denies: rash, lesions Neurological: denies: headache, weakness Psychiatric: denies: anxiety, depression ED Past Medical Hx - Past Medical History Previous Medical History?: Yes Hx Hypertension: Yes Hx Congestive Heart Failure: Yes Hx Diabetes: No Hx Deep Vein Thrombosis: Yes (left leg) Hx Arthritis: Yes Hx Asthma: No Hx COPD: Yes Hx HIV: No Additional medical history: Chronic back pain - Surgical History Past Surgical History?: Yes Additional Surgical History: LLE Clot removal (popliteal aneurysm). Subsequent compartment syndrome and fasciotomy - Social History Smoking Status: Current Every Day Smoker Substance Use Type: Alcohol - Medications Home Medications: Home Medications Medication Instructions Recorded Confirmed Last Taken Type Cilostazol [Pletal] 50 mg PO DAILY 08/07/16 08/27/16 08/06/16 History Gabapentin 600 mg PO TID 08/07/16 08/27/16 08/05/16 History 300mg Apixaban [Eliquis] 5 mg PO BID #60 tablet 08/20/16 08/27/16 Unknown Rx Clopidogrel Bisulfate [Plavix] 75 mg PO QDAY #30 tablet 08/20/16 08/27/16 Unknown Rx Oxycodone HCl/Acetaminophen 1 each PO Q4HR PRN #80 tablet 08/20/16 08/27/16 Unknown Rx [Percocet 10/325 mg] Doxycycline [Vibramycin CAP] 100 mg PO BID #16 capsule 08/31/16 Unknown Rx Oxycodone HCl/Acetaminophen 1 each PO Q6HR PRN #60 tablet 08/31/16 Unknown Rx [Percocet 7.5/325 mg] Apixaban [Eliquis] 5 mg PO BID tablet 09/04/16 Unknown Rx Gabapentin [Neurontin] 600 mg PO Q8HR capsule 09/04/16 Unknown Rx ED Physical Exam - General Limitations: No Limitations General appearance: alert, in no apparent distress - Head Head exam: Present: atraumatic, normocephalic - Eye Eye exam: Present: normal appearance - ENT ENT exam: Present: mucous membranes moist - Neck Neck exam: Present: normal inspection. Absent: lymphadenopathy, thyromegaly - Respiratory Respiratory exam: Present: normal lung sounds bilaterally. Absent: respiratory distress, wheezes - Cardiovascular Cardiovascular Exam: Present: regular rate, normal rhythm, normal heart sounds. Absent: systolic murmur, diastolic murmur, rubs, gallop - GI/Abdominal GI/Abdominal exam: Present: soft, normal bowel sounds - Rectal Rectal exam: Present: deferred - Extremities Exam Extremities exam: Present: other - Expanded Lower Extremity Exam Left Knee exam: Absent: tenderness, swelling Lower Leg exam: Present: full ROM, erythema (diffuse patchy rash covering her entire leg up to groin) Foot/Toe exam: Absent: deformity Neuro vascular tendon exam: Present: no vascular compromise. Absent: pulse deficit, abnormal cap refill, motor deficit, sensory deficit - Back Exam Back exam: Present: normal inspection - Neurological Exam Neurological exam: Present: alert, oriented X3 - Psychiatric Psychiatric exam: Present: normal affect, normal mood - Skin Skin exam: Present: warm, dry, intact, normal color. Absent: rash ED Course Vital Signs 12/01/16 12/01/16 13:06 17:11 Temperature 97.6 F 97.7 F Pulse Rate 111 H 99 H Respiratory 18 97 H Rate Blood Pressure 130/92 Blood Pressure 141/104 [Right] O2 Sat by Pulse 97 Oximetry ED Lower Extremity MDM - Lab Data Result diagrams: 12/01/16 13:33 12/01/16 13:33 Laboratory Results - last 24 hr 12/01/16 12/01/16 12/01/16 13:33 13:33 13:33 WBC 14.9 H RBC 5.20 H Hgb 15.1 Hct 46.1 H MCV 89 MCH 29 MCHC 33 RDW 15.8 H Plt Count 330 Lymph % (Auto) 5.5 L [place] % (Auto) 3.6 Eos % (Auto) 0.9 Baso % (Auto) 0.7 Lymph # 0.8 L [place] # 0.5 Eos # 0.1 Baso # 0.1 Seg Neutrophils % 89.3 H Seg Neutrophils # 13.3 H PT 12.2 INR 0.86 L VBG pH Sodium 136 L Potassium 4.5 Chloride 99.5 Carbon Dioxide 21 L Anion Gap 20 BUN 25 H Creatinine 1.2 Estimated GFR > 60 BUN/Creatinine Ratio 21 Glucose 101 H Lactic Acid Calcium 9.1 Total Bilirubin < 0.20 AST 15 ALT 9 Alkaline Phosphatase 137 H Total Protein 7.6 Albumin 3.5 L Albumin/Globulin Ratio 0.9 12/01/16 12/01/16 13:33 15:34 WBC RBC Hgb Hct MCV MCH MCHC RDW Plt Count Lymph % (Auto) [place] % (Auto) Eos % (Auto) Baso % (Auto) Lymph # [place] # Eos # Baso # Seg Neutrophils % Seg Neutrophils # PT INR VBG pH 7.332 Sodium Potassium Chloride Carbon Dioxide Anion Gap BUN Creatinine Estimated GFR BUN/Creatinine Ratio Glucose Lactic Acid 0.70 Calcium Total Bilirubin AST ALT Alkaline Phosphatase Total Protein Albumin Albumin/Globulin Ratio - EKG Data -: EKG Interpreted by Me - EKG Data 12/01/16 17:32 Sinus tach 102 normal axis normal intervals no ST-T wave changes - Medical Decision Making [id number] male with a history of delayed wound healing and after vessel bypass graft. Patient required fasciotomy and prolonged healing. I saw this patient in August and his wound is significantly improved since that time. He currently has a diffuse red rash on his left leg. He recently had a new wound dressing applied. I do not feel that this is allergic and it is more likely infectious in the leg. It is possible this is allergic but given this patient' s prior course I feel the most prudent course of action would be to treat with IV vancomycin and admitted for observation.\ Discussed with Vasc Surg national facilities manager and recommend admit to [facility]MS - they will see patient Discussed with Hospitalist and will admit to their service. Portions of this chart were dictated with dictation software. There may be dictation errors contained within this note. Critical care attestation.: If time is entered above; I have spent that time in minutes in the direct care of this critically ill patient, excluding procedure time. ED Disposition Clinical Impression: Cellulitis of left leg Disposition: DC- OP ADMIT IP TO THIS HOSP Is pt being admited?: Yes Condition: Stable Referrals: LUIS GARCIA [Other] - 3-5 Days
[2016-12-01 18:53] LABS: Bilirubin,Urine NEG (Negative); Blood,Urine NEG (Negative); Ketones,Urine NEG (Negative); Leukocyte Esterase,Urine TR (Negative); Nitrite,Urine NEG (Negative); Protein,Urine <15 mg/dL mg/dL (Negative); Urobilinogen,Urine < 2.0 mg/dL (<2.0)
--- NOTE | 2016-12-01 23:41 | History and Physical Report ---
History of Present Illness Date of admission: 12/01/16 18:40 History of present illness: 61-year-old male with a history of hypertension, COPD, status post fasciotomy of the popliteal artery, comes to the emergency room with complaints of left leg red, painful and swollen, symptoms started on Saturday. Swelling has worsened today and extending up to his groin Review Of Systems: Constitutional: no weight loss Ears, eyes, nose, mouth and throat: no nasal congestion, no nasal discharge, no sinus pressure, blurry vision, diplopia Neck: No neck pain or rigidity. Cardiovascular: chest pain, orthopnea, palpitations Respiratory: No shortness of breath, cough Gastrointestinal: abdominal pain, hematochezia Genitourinary : no dysuria, frequency , hematuria Musculoskeletal: no muscle ache Integumentary: no rash, no pruritis Neurological: no parathesias, focal weakness Endocrine: no cold or heat intolerance, no polyuria or polydipsia Hematologic/Lymphatic: no easy bruising, no easy bleeding, no gland swelling Allergic/Immunologic: no urticaria, no angioedema. PAST MEDICAL HISTORY:hypertension, COPD, status post fasciotomy of the popliteal artery PAST SURGICAL HISTORY: fasciotomy of the popliteal artery FAMILY HISTORY:hypertension SOCIAL HISTORY: Smoker quarter pack a day, social alcohol use. Medications and Allergies Allergies Allergy/AdvReac Type Severity Reaction Status Date / Time No Known Allergies Allergy Verified 12/01/16 13:06 Home Medications Medication Instructions Recorded Confirmed Last Taken Type Cilostazol [Pletal] 50 mg PO DAILY 08/07/16 12/01/16 08/06/16 History Clopidogrel Bisulfate [Plavix] 75 mg PO QDAY #30 tablet 08/20/16 12/01/16 Unknown Rx Oxycodone HCl/Acetaminophen 1 each PO Q4HR PRN #80 tablet 08/20/16 12/01/16 Unknown Rx [Percocet 10/325 mg] Oxycodone HCl/Acetaminophen 1 each PO Q6HR PRN #60 tablet 08/31/16 12/01/16 Unknown Rx [Percocet 7.5/325 mg] Apixaban [Eliquis] 5 mg PO BID tablet 09/04/16 12/01/16 Unknown Rx AtorvaSTATin 20 mg PO DAILY 12/01/16 12/01/16 Unknown History Benazepril HCl 40 mg PO DAILY 12/01/16 12/01/16 Unknown History Cilostazol 50 mg PO DAILY 12/01/16 12/01/16 Unknown History Citalopram 20 mg PO DAILY 12/01/16 12/01/16 Unknown History Gabapentin [Neurontin] 600 mg PO BID 12/01/16 12/01/16 Unknown History Levothyroxine 0.112 mg PO DAILY 12/01/16 12/01/16 Unknown History Exam - Physical Exam Narrative exam: Gen. appearance: Patient lying in bed in no acute distress HEENT: Normocephalic/atraumatic, pupils equal round reactive to light, extra alkaline movement intact, no scleral icterus, no JVD or thyromegaly or nodule, neck is supple, mucous membrane moist, no erythema or exudate Heart: S1-S2, regular rate and rhythm Lungs: Clear to auscultation bilateral breathing comfortable Abdomen: Positive bowel sounds, nontender, nondistended, no organomegaly Extremities: Left leg, diffuse erythema extending up to the groin, warm, open wound on the anterior lateral leg, No edema, cyanosis, clubbing Neuro:: Oriented 3 , cranial nerves II-12 intact, speech, motor intact Skin: No rash, nodules, warm dry - Constitutional Vitals: Temp Pulse Resp BP Pulse Ox 98.7 F 106 H 18 117/76 99 12/01/16 22:53 12/01/16 19:50 12/01/16 22:53 12/01/16 22:53 12/01/16 19:50 Results - Labs CBC & Chem 7: 12/01/16 13:33 12/01/16 13:33 Assessment and Plan Assessment Diffuse cellulitis of the left lower Lower extremity ulcers Hypertension Status post fasciotomy of left leg for rupture popliteal artery Plan Admit to medicine Start IV vancomycin, vascular consulted to see the patient Continue appropriate outpatient medications, Percocet, DVT prophylaxis Follow blood cultures and Dopplers of lower extremity
[2016-12-02] MEDS ORDERED: ZOFRAN IV PRN (00:17)
[2016-12-02] MEDS ORDERED: PERCOCET 5/325 PO PRN (00:17)
[2016-12-02] MEDS ORDERED: TYLENOL PO PRN (00:17)
[2016-12-02] MEDS ORDERED: MILK OF MAGNESIA PO PRN (00:17)
[2016-12-02] MEDS ORDERED: DULCOLAX PR PRN (00:17)
--- NOTE | 2016-12-02 09:46 | Progress Note ---
Assessment and Plan Assessment and plan: 61-year-old male with a history of hypertension, COPD, status post fasciotomy of the popliteal artery, hx of Left tibial artery occlusion, comes to the emergency room with complaints of left leg red, painful and swollen, symptoms started on Saturday. Swelling has worsened today and extending up to his groin Diffuse cellulitis of the left lower extremity/Sepsis * continue Vancomycin, ID consult pending * LLE venous doppler negative for DVT * Follow blood cultures, CT LLE, shows only superficial and subcutaneous cellulitis, no abscess Hypertension * continue home meds Status post fasciotomy of left leg for rupture popliteal artery * vascular consulted, appears to be healing well Chronic LLE clot has been off eliquis because it was not affordable (has medicare) -restart eliquis History Interval history: He continues to complain of left lower extremity pain and swelling. He does state that the rib area of erythema has regressed. And he feels a lot better than he did previously Hospitalist Physical - Physical exam Narrative exam: General.: Appears well, no distress, nontoxic HEENT: Moist mucous membranes, extraocular muscles intact, no lymphadenopathy Neck: supple Cardiac: S1-S2 heard Lungs: clear to auscultation bilaterally Abdomen: soft , nontender, nondistended, bowel sounds positive Extremities: Left lower extremity erythema, edema and tenderness. There is erythema involving the whole leg. The right below the knee. There is patchy areas of erythema on the thigh. This suggests regression Skin: Erythematous left lower extremity as described above. Scar on the left lower extremity consistent with fasciotomy Neurologic: no gross focal deficits Psych: appropriate behavior, appropriate mood, corporative, judgment intact - Constitutional Vitals: Temp Pulse Resp BP Pulse Ox 98.7 F 106 H 18 117/76 99 12/01/16 22:53 12/01/16 19:50 12/01/16 22:53 12/01/16 22:53 12/01/16 19:50 Results - Labs CBC & Chem 7: 12/01/16 13:33 12/01/16 13:33 Labs: Laboratory Last Values WBC 14.9 K/mm3 (4.5-11.0) H 12/01/16 13:33 RBC 5.20 M/mm3 (3.65-5.03) H 12/01/16 13:33 Hgb 15.1 gm/dl (11.8-15.2) 12/01/16 13:33 Hct 46.1 % (35.5-45.6) H 12/01/16 13:33 MCV 89 fl (84-94) 12/01/16 13:33 MCH 29 pg (28-32) 12/01/16 13:33 MCHC 33 % (32-34) 12/01/16 13:33 RDW 15.8 % (13.2-15.2) H 12/01/16 13:33 Plt Count 330 K/mm3 (140-440) 12/01/16 13:33 Lymph % (Auto) 5.5 % (13.4-35.0) L 12/01/16 13:33 [place] % (Auto) 3.6 % (0.0-7.3) 12/01/16 13:33 Eos % (Auto) 0.9 % (0.0-4.3) 12/01/16 13:33 Baso % (Auto) 0.7 % (0.0-1.8) 12/01/16 13:33 Lymph # 0.8 K/mm3 (1.2-5.4) L 12/01/16 13:33 [place] # 0.5 K/mm3 (0.0-0.8) 12/01/16 13:33 Eos # 0.1 K/mm3 (0.0-0.4) 12/01/16 13:33 Baso # 0.1 K/mm3 (0.0-0.1) 12/01/16 13:33 Seg Neutrophils % 89.3 % (40.0-70.0) H 12/01/16 13:33 Seg Neutrophils # 13.3 K/mm3 (1.8-7.7) H 12/01/16 13:33 PT 12.2 Sec. (12.2-14.9) 12/01/16 13:33 INR 0.86 (0.87-1.13) L 12/01/16 13:33 VBG pH 7.332 (7.320-7.420) 12/01/16 13:33 Sodium 136 mmol/L (137-145) L 12/01/16 13:33 Potassium 4.5 mmol/L (3.6-5.0) 12/01/16 13:33 Chloride 99.5 mmol/L (98-107) 12/01/16 13:33 Carbon Dioxide 21 mmol/L (22-30) L 12/01/16 13:33 Anion Gap 20 mmol/L 12/01/16 13:33 BUN 25 mg/dL (9-20) H 12/01/16 13:33 Creatinine 1.2 mg/dL (0.8-1.5) 12/01/16 13:33 Estimated GFR > 60 ml/min 12/01/16 13:33 BUN/Creatinine Ratio 21 % 12/01/16 13:33 Glucose 101 mg/dL (75-100) H 12/01/16 13:33 Lactic Acid 0.70 mmol/L (0.7-2.0) 12/01/16 17:56 Calcium 9.1 mg/dL (8.4-10.2) 12/01/16 13:33 Total Bilirubin < 0.20 mg/dL (0.1-1.2) 12/01/16 13:33 AST 15 units/L (5-40) 12/01/16 13:33 ALT 9 units/L (7-56) 12/01/16 13:33 Alkaline Phosphatase 137 units/L (35-129) H 12/01/16 13:33 Total Protein 7.6 g/dL (6.3-8.2) 12/01/16 13:33 Albumin 3.5 g/dL (3.9-5) L 12/01/16 13:33 Albumin/Globulin Ratio 0.9 % 12/01/16 13:33 Urine Color Yellow (Yellow) 12/01/16 17:53 Urine Turbidity Clear (Clear) 12/01/16 17:53 Urine pH 5.0 (5.0-7.0) 12/01/16 17:53 Ur Specific [place] 1.015 (1.003-1.030) 12/01/16 17:53 Urine Protein <15 mg/dl mg/dL (Negative) 12/01/16 17:53 Urine Glucose (UA) Neg mg/dL (Negative) 12/01/16 17:53 Urine Ketones Neg mg/dL (Negative) 12/01/16 17:53 Urine Blood Neg (Negative) 12/01/16 17:53 Urine Nitrite Neg (Negative) 12/01/16 17:53 Urine Bilirubin Neg (Negative) 12/01/16 17:53 Urine Urobilinogen < 2.0 mg/dL (<2.0) 12/01/16 17:53 Ur Leukocyte Esterase Tr (Negative) 12/01/16 17:53 Urine WBC (Auto) 4.0 /HPF (0.0-6.0) 12/01/16 17:53 Urine RBC (Auto) 4.0 /HPF (0.0-6.0) 12/01/16 17:53 U Epithel Cells (Auto) < 1.0 /HPF (0-13.0) 12/01/16 17:53 - Imaging and Cardiology Imaging and Cardiology: CT LLE, image reviewed, superficial and subcutaneous cellulitis, no abscess
[2016-12-02] MEDS: NORCO 5/325 PO PRN ×3 (10:27→22:38)
[2016-12-02] MEDS: VANCOMYCIN/NS 1 GM/250 ML 1 GM/250 ML BAG IV SCH ×2 (10:29→21:31)
[2016-12-02] MEDS ORDERED: NACL ONE (10:52)
--- NOTE | 2016-12-02 11:02 | Consultation ---
History of Present Illness - Reason for Consult Consult date: 12/02/16 - History of Present Illness This patient had an acutely thrombosed left popliteal artery aneurysm. He underwent thrombolysis and then the repair using a reverse greater saphenous vein. Patient required 4 compartment fasciotomy secondary to compartment syndrome. Patient has done well and his wounds were healing. Yesterday he was in the ER with a left leg rash. Patient denies any history of fevers or chills. Patient has been going to wound care regularly to trim the lateral portion of the fasciotomy. The medial portion of the fasciotomy has been successfully closed. Patient reported well healing of the wound and no new changes. Past History Past Medical History: CAD, hypertension, PVD Past Surgical History: Other (left SFA popliteal bypass and exclusion of left popliteal aneurysm) Social history: smoking Family history: CAD Medications and Allergies Allergies Allergy/AdvReac Type Severity Reaction Status Date / Time No Known Allergies Allergy Verified 12/01/16 13:06 Home Medications Medication Instructions Recorded Confirmed Last Taken Type Cilostazol [Pletal] 50 mg PO DAILY 08/07/16 12/01/16 08/06/16 History Clopidogrel Bisulfate [Plavix] 75 mg PO QDAY #30 tablet 08/20/16 12/01/16 Unknown Rx Oxycodone HCl/Acetaminophen 1 each PO Q4HR PRN #80 tablet 08/20/16 12/01/16 Unknown Rx [Percocet 10/325 mg] Oxycodone HCl/Acetaminophen 1 each PO Q6HR PRN #60 tablet 08/31/16 12/01/16 Unknown Rx [Percocet 7.5/325 mg] Apixaban [Eliquis] 5 mg PO BID tablet 09/04/16 12/01/16 Unknown Rx AtorvaSTATin 20 mg PO DAILY 12/01/16 12/01/16 Unknown History Benazepril HCl 40 mg PO DAILY 12/01/16 12/01/16 Unknown History Cilostazol 50 mg PO DAILY 12/01/16 12/01/16 Unknown History Citalopram 20 mg PO DAILY 12/01/16 12/01/16 Unknown History Gabapentin [Neurontin] 600 mg PO BID 12/01/16 12/01/16 Unknown History Levothyroxine 0.112 mg PO DAILY 12/01/16 12/01/16 Unknown History Active Meds: Active Medications Acetaminophen (Tylenol) 650 mg PO Q4H PRN PRN Reason: Pain MILD(1-3)/Fever >100.5/SOLARES Acetaminophen/Hydrocodone Bitart ([place] 5/325) 1 each PO Q6H PRN PRN Reason: Pain, Moderate (4-6) Last Admin: 12/02/16 10:27 Dose: 1 each Bisacodyl (Dulcolax) 10 mg SD QDAY PRN PRN Reason: Constipation unrelieved by MOM Vancomycin HCl (Vancomycin/Ns 1 Gm/250 Ml) 1 gm in 250 mls @ 167.007 mls/hr IV Q12H MELISSA PRN Reason: Protocol Last Admin: 12/02/16 10:29 Dose: 167.007 mls/hr Magnesium Hydroxide (Milk Of Magnesia) 30 ml PO Q4H PRN PRN Reason: Constipation Ondansetron HCl (Zofran) 4 mg IV Q8H PRN PRN Reason: N/V unrelieved by Reglan Review of Systems All systems: negative Exam - Constitutional Vitals: Temp Pulse Resp BP Pulse Ox 98.9 F 84 16 125/84 96 12/02/16 10:18 12/02/16 10:18 12/02/16 10:18 12/02/16 10:18 12/02/16 10:18 General appearance: Present: no acute distress - EENT Eyes: Present: PERRL ENT: hearing intact - Neck Neck: Present: supple. Absent: carotid bruits - Respiratory Respiratory effort: normal Respiratory: bilateral: CTA - Cardiovascular Rhythm: regular - Extremities Extremities: no ischemia - Integumentary Integumentary: Present: erythema (patchy erythema over the entire left leg including thigh. Well-healing lateral fasciotomy incision.) - Musculoskeletal Musculoskeletal: strength equal bilaterally - Psychiatric Psychiatric: appropriate mood/affect - Neurologic Neurologic: moves all extremities Results - Labs CBC & Chem 7: 12/01/16 13:33 12/01/16 13:33 - Imaging and Cardiology Venous US: report reviewed, image reviewed (no DVT) Assessment and Plan Atypical rash/erythema of the left lower extremity. If this is cellulitis that is not its normal presentation. Patient has been on IV antibiotics overnight. Well-perfused left foot. Well-healing left lateral fasciotomy incision. Plan: We'll continue IV antibiotics for now we'll see how his leg response. Consider infectious disease consultation.
--- NOTE | 2016-12-02 11:31 | Cat Scan Report ---
CT LOWER EXTREMITY LEFT WITH CONTRAST History: Swelling, redness, pain. Technique: Helical CT following IV contrast from just above the knees to the ankles. Sagittal and coronal reformatted images. Findings: There is nonspecific diffuse subcutaneous edema and swelling in the visualized left lower extremity. There is no evidence for soft tissue gas or abscess. No bony destruction or periostitis is identified to suggest osteomyelitis. There appears to be a bypass graft on the left side. Only the inferior limb is visualized which appears to anastomose with the distal left popliteal artery. The visualized graft appears patent. The tibioperoneal trunk, anterior tibial artery and peroneal artery are patent past the ankle. The posterior tibial artery appears to be occluded approximately 10 cm from its origin. The chronicity of this is unclear. The venous structures are poorly opacified on this exam but no obvious DVT is identified. Impression: Diffuse nonspecific subcutaneous edema which could represent cellulitis. The left posterior tibial artery appears to be occluded. Please see above.
[2016-12-02] MEDS: ELIQUIS PO SCH (21:30)
[2016-12-02] MEDS: NEURONTIN PO SCH (21:30)
[2016-12-03] MEDS: SYNTHROID PO SCH (05:48)
[2016-12-03 07:39] LABS: Basophils % (Auto) 0.5 % (0.0-1.8); Eosinophils % (Auto) 8.3 % (0.0-4.3); Hematocrit 36.8 % (35.5-45.6); Hemoglobin 11.8 gm/dl (11.8-15.2); Mean Corpuscular HGB Conc 32 % (32-34); Mean Corpuscular Hemoglobin 29 pg (28-32); Mean Corpuscular Volume 89 fl (84-94); Platelet Count 281 K/mm3 (140-440); Red Blood Count 4.12 M/mm3 (3.65-5.03); Red Cell Distribution Width 15.6 % (13.2-15.2); White Blood Count 9.6 K/mm3 (4.5-11.0)
[2016-12-03 07:51] LABS: Anion Gap 14 mmol/L; BUN/Creatinine Ratio 17; Blood Urea Nitrogen 15 mg/dL (9-20); Calcium 8.3 mg/dL (8.4-10.2); Carbon Dioxide 24 mmol/L (22-30); Chloride 107.8 mmol/L (98-107); Glucose 94 mg/dL (75-100); Potassium 4.1 mmol/L (3.6-5.0); Sodium 142 mmol/L (137-145)
--- NOTE | 2016-12-03 07:54 | Progress Note ---
Assessment and Plan Assessment and plan: 61-year-old male with a history of hypertension, COPD, status post fasciotomy of the popliteal artery, hx of Left tibial artery occlusion, comes to the emergency room with complaints of left leg red, painful and swollen, symptoms started on Saturday. Swelling has worsened today and extending up to his groin Diffuse cellulitis of the left lower extremity/Sepsis * continue Vancomycin, ID consult pending * LLE venous doppler negative for DVT * Follow blood cultures, CT LLE, shows only superficial and subcutaneous cellulitis, no abscess The patient states he had a new type of bandage placed last , and by Saturday his leg and swollen and turned red. I suspect he had an allergic/ inflammatory response on top of cellulitis. Following the removal of the bandage his symptoms have improved. He was told to avoid the "blue" RTO type bandages Hypertension * continue home meds Status post fasciotomy of left leg for rupture popliteal artery * vascular consulted, appears to be healing well Chronic LLE clot has been off eliquis because it was not affordable (has medicare) -restart eliquis -will speak to to ensure it is covered by his insurance prior to dc History Interval history: He continues to complain of left lower extremity pain and swelling. He does state that the area of erythema has regressed. And he feels a lot better than he did previously Hospitalist Physical - Physical exam Narrative exam: General.: Appears well, no distress, nontoxic HEENT: Moist mucous membranes, extraocular muscles intact, no lymphadenopathy Neck: supple Cardiac: S1-S2 heard Lungs: clear to auscultation bilaterally Abdomen: soft , nontender, nondistended, bowel sounds positive Extremities: Left lower extremity erythema, edema and tenderness. There is erythema involving the whole leg. The right below the knee. There is patchy areas of erythema on the thigh. This suggests regression Skin: Erythematous left lower extremity as described above. Scar on the left lower extremity consistent with fasciotomy Neurologic: no gross focal deficits Psych: appropriate behavior, appropriate mood, corporative, judgment intact - Constitutional Vitals: Temp Pulse Resp BP Pulse Ox 98.4 F 86 20 117/77 96 12/03/16 00:29 12/02/16 15:46 12/03/16 00:29 12/03/16 00:29 12/02/16 20:40 General appearance: Present: no acute distress Results - Labs CBC & Chem 7: 12/03/16 07:27 12/03/16 07:27 Labs: Laboratory Last Values WBC 9.6 K/mm3 (4.5-11.0) 12/03/16 07:27 RBC 4.12 M/mm3 (3.65-5.03) 12/03/16 07:27 Hgb 11.8 gm/dl (11.8-15.2) D 12/03/16 07:27 Hct 36.8 % (35.5-45.6) D 12/03/16 07:27 MCV 89 fl (84-94) 12/03/16 07: MCH 29 pg (28-32) 12/03/16 07: MCHC 32 % (32-34) 12/03/16 07: RDW 15.6 % (13.2-15.2) H 12/03/16 07:27 Plt Count 281 K/mm3 (140-440) 12/03/16 07:27 Lymph % (Auto) 9.7 % (13.4-35.0) L 12/03/16 07:27 [place] % (Auto) 9.5 % (0.0-7.3) H 12/03/16 07:27 Eos % (Auto) 8.3 % (0.0-4.3) H 12/03/16 07:27 Baso % (Auto) 0.5 % (0.0-1.8) 12/03/16 07:27 Lymph # 0.9 K/mm3 (1.2-5.4) L 12/03/16 07:27 [place] # 0.9 K/mm3 (0.0-0.8) H 12/03/16 07:27 Eos # 0.8 K/mm3 (0.0-0.4) H 12/03/16 07:27 Baso # 0.1 K/mm3 (0.0-0.1) 12/03/16 07:27 Seg Neutrophils % 72.0 % (40.0-70.0) H 12/03/16 07:27 Seg Neutrophils # 6.9 K/mm3 (1.8-7.7) 12/03/16 07:27 PT 12.2 Sec. (12.2-14.9) 12/01/16 13:33 INR 0.86 (0.87-1.13) L 12/01/16 13:33 VBG pH 7.332 (7.320-7.420) 12/01/16 13:33 Sodium 136 mmol/L (137-145) L 12/01/16 13:33 Potassium 4.5 mmol/L (3.6-5.0) 12/01/16 13:33 Chloride 107.8 mmol/L (98-107) H 12/03/16 07:27 Carbon Dioxide 24 mmol/L (22-30) 12/03/16 07:27 Anion Gap 14 mmol/L 12/03/16 07:27 BUN 15 mg/dL (9-20) 12/03/16 07:27 Creatinine 0.9 mg/dL (0.8-1.5) 12/03/16 07:27 Estimated GFR > 60 ml/min 12/03/16 07:27 BUN/Creatinine Ratio 17 % 12/03/16 07:27 Glucose 94 mg/dL (75-100) 12/03/16 07:27 Lactic Acid 0.70 mmol/L (0.7-2.0) 12/01/16 17:56 Calcium 8.3 mg/dL (8.4-10.2) L 12/03/16 07:27 Total Bilirubin < 0.20 mg/dL (0.1-1.2) 12/01/16 13:33 AST 15 units/L (5-40) 12/01/16 13:33 ALT 9 units/L (7-56) 12/01/16 13:33 Alkaline Phosphatase 137 units/L (35-129) H 12/01/16 13:33 Total Protein 7.6 g/dL (6.3-8.2) 12/01/16 13:33 Albumin 3.5 g/dL (3.9-5) L 12/01/16 13:33 Albumin/Globulin Ratio 0.9 % 12/01/16 13:33 Urine Color Yellow (Yellow) 12/01/16 17:53 Urine Turbidity Clear (Clear) 12/01/16 17:53 Urine pH 5.0 (5.0-7.0) 12/01/16 17:53 Ur Specific [place] 1.015 (1.003-1.030) 12/01/16 17:53 Urine Protein <15 mg/dl mg/dL (Negative) 12/01/16 17:53 Urine Glucose (UA) Neg mg/dL (Negative) 12/01/16 17:53 Urine Ketones Neg mg/dL (Negative) 12/01/16 17:53 Urine Blood Neg (Negative) 12/01/16 17:53 Urine Nitrite Neg (Negative) 12/01/16 17:53 Urine Bilirubin Neg (Negative) 12/01/16 17:53 Urine Urobilinogen < 2.0 mg/dL (<2.0) 12/01/16 17:53 Ur Leukocyte Esterase Tr (Negative) 12/01/16 17:53 Urine WBC (Auto) 4.0 /HPF (0.0-6.0) 12/01/16 17:53 Urine RBC (Auto) 4.0 /HPF (0.0-6.0) 12/01/16 17:53 U Epithel Cells (Auto) < 1.0 /HPF (0-13.0) 12/01/16 17:53
[2016-12-03] MEDS ORDERED: LEVOTHYROXINE PO SCH (10:00)
[2016-12-03] MEDS ORDERED: CITALOPRAM 20 MG PO SCH (10:00)
[2016-12-03] MEDS ORDERED: NON-FORMULARY (Atorvastatin 20 MG) PO SCH (10:00)
[2016-12-03] MEDS ORDERED: BENAZEPRIL HCL 40 MG PO SCH (10:00)
[2016-12-03] MEDS: PLETAL PO SCH (11:32)
[2016-12-03] MEDS: ZESTRIL PO SCH (11:32)
[2016-12-03] MEDS: NEURONTIN PO SCH ×2 (11:33→22:13)
[2016-12-03] MEDS: ELIQUIS PO SCH ×2 (11:33→22:13)
[2016-12-03] MEDS: celeXA PO SCH (11:34)
[2016-12-03] MEDS: VANCOMYCIN/NS 1 GM/250 ML 1 GM/250 ML BAG IV SCH ×2 (11:34→22:12)
[2016-12-03] MEDS: NORCO 5/325 PO PRN ×2 (11:39→20:12)
[2016-12-03] MEDS: PLAVIX PO SCH (11:45)
--- NOTE | 2016-12-03 14:31 | Event Note ---
Date: 12/03/16 Patient is awake and alert. States his leg is improving. The patient states he had a new type of bandage placed last , and by Saturday his leg and swollen and turned red. I suspect he had some sort of allergic/inflammatory response. Following the removal of the bandage his symptoms have improved. Arterial duplex has been completed. His velocities appear good, but waveforms appear monophasic. This could be related to an allergic response/histamine related vaso-dilatation. Do not recommend arterial intervention at this point. Recommended avoiding the "blue" RTO type bandages. He'll follow with the wound care clinic as an outpatient. He's to follow-up in our office in the next 1 to 2 months and call for an appointment.
[2016-12-04] MEDS: SYNTHROID PO SCH (05:45)
[2016-12-04] MEDS: NORCO 5/325 PO PRN ×2 (05:48→13:47)
[2016-12-04] MEDS: PLAVIX PO SCH (09:16)
[2016-12-04] MEDS: PLETAL PO SCH (09:16)
[2016-12-04] MEDS: NEURONTIN PO SCH (09:17)
[2016-12-04] MEDS: ELIQUIS PO SCH (09:17)
[2016-12-04] MEDS: ZESTRIL PO SCH (09:17)
[2016-12-04] MEDS: celeXA PO SCH ×2 (09:18→09:26)
[2016-12-04] MEDS: VANCOMYCIN/NS 1 GM/250 ML 1 GM/250 ML BAG IV SCH (09:27)
--- NOTE | 2016-12-04 09:48 | Vascular Lab Report ---
LEFT LOWER EXTREMITY ARTERIAL DUPLEX: REASON FOR EXAM: Peripheral arterial disease. COMMENTS ON THE LEFT: Triphasic waveforms are seen proximally. Monophasic waveforms are seen distally. Patent SFA popliteal bypass with no evidence of stenosis. No focal significant plaque is identified. Findings are consistent with abnormal perfusion. Findings are consistent with the ability to heal distal wounds. IMPRESSION: LEFT:Patent left SFA popliteal bypass..
--- NOTE | 2016-12-04 10:48 | Consultation ---
History of Present Illness - Reason for Consult Consult date: 12/04/16 cellulitis Requesting physician: MARISSA DE LEON - History of Present Illness 61-year-old male with a history of hypertension, COPD, PVD with left popliteal artery aneurysm complicated with compartment syndrome in August 2016 status post fasciotomy of the popliteal artery. He was seen by ID at that time and was sent home on doxycycline for 7 days. At that time wound cultures grew MRSA, group B Strep and Klebsiella. Patient is readmitted on 12/01/16 due to left leg edema, erythema, tenderness for 48 hours. Erythema and Swelling has worsened and extending up to his groin. In the emergency room, temperature was 97.6, heart rate 111, blood pressure 130/ 92. White count 14.9K. Creatinine 1.2. UA was negative. Art Ultrasound showing a patent left SFA popliteal bypass. CT leg shows subcutaneous edema and left popliteal bypass appeared to be occluded. Microbiology: Blood cultures: 12/01 ngtd Urine cultures: 12/01 neg Current Antimicrobials: Vancomycin 12/02 Past History Past Medical History: CAD, hypertension, PVD Past Surgical History: Other (left SFA popliteal bypass and exclusion of left popliteal aneurysm) Social history: smoking Family history: CAD Medications and Allergies Allergies Allergy/AdvReac Type Severity Reaction Status Date / Time No Known Allergies Allergy Verified 12/01/16 13:06 Home Medications Medication Instructions Recorded Confirmed Last Taken Type Cilostazol [Pletal] 50 mg PO DAILY 08/07/16 12/01/16 08/06/16 History Clopidogrel Bisulfate [Plavix] 75 mg PO QDAY #30 tablet 08/20/16 12/01/16 Unknown Rx Oxycodone HCl/Acetaminophen 1 each PO Q4HR PRN #80 tablet 08/20/16 12/01/16 Unknown Rx [Percocet 10/325 mg] Oxycodone HCl/Acetaminophen 1 each PO Q6HR PRN #60 tablet 08/31/16 12/01/16 Unknown Rx [Percocet 7.5/325 mg] Apixaban [Eliquis] 5 mg PO BID tablet 09/04/16 12/01/16 Unknown Rx AtorvaSTATin 20 mg PO DAILY 12/01/16 12/01/16 Unknown History Benazepril HCl 40 mg PO DAILY 12/01/16 12/01/16 Unknown History Cilostazol 50 mg PO DAILY 12/01/16 12/01/16 Unknown History Citalopram 20 mg PO DAILY 12/01/16 12/01/16 Unknown History Gabapentin [Neurontin] 600 mg PO BID 12/01/16 12/01/16 Unknown History Levothyroxine 0.112 mg PO DAILY 12/01/16 12/01/16 Unknown History Active Meds: Active Medications Acetaminophen (Tylenol) 650 mg PO Q4H PRN PRN Reason: Pain MILD(1-3)/Fever >100.5/SOLARES Acetaminophen/Hydrocodone Bitart ([place] 5/325) 1 each PO Q6H PRN PRN Reason: Pain, Moderate (4-6) Last Admin: 12/04/16 05:48 Dose: 1 each Apixaban (Eliquis) 5 mg PO BID [facility] PRN Reason: Protocol Last Admin: 12/04/16 09:17 Dose: 5 mg Atorvastatin Calcium (Lipitor) 20 mg PO DAILY [facility] Last Admin: 12/04/16 09:17 Dose: 20 mg Bisacodyl (Dulcolax) 10 mg [place] QDAY PRN PRN Reason: Constipation unrelieved by MOM Cilostazol (Pletal) 50 mg PO DAILY [facility] Last Admin: 12/04/16 09:16 Dose: 50 mg Citalopram Hydrobromide (Celexa) 20 mg PO DAILY [facility] Last Admin: 12/04/16 09:26 Dose: 20 mg Clopidogrel Bisulfate (Plavix) 75 mg PO QDAY [facility] Last Admin: 12/04/16 09:16 Dose: 75 mg Gabapentin (Neurontin) 600 mg PO BID [facility] Last Admin: 12/04/16 09:17 Dose: 600 mg Vancomycin HCl (Vancomycin/Ns 1 Gm/250 Ml) 1 gm in 250 mls @ 167.007 mls/hr IV Q12H MELISSA PRN Reason: Protocol Last Admin: 12/04/16 09:27 Dose: 167.007 mls/hr Levothyroxine Sodium (Synthroid) 112 mcg PO DAILY@0600 [facility] Last Admin: 12/04/16 05:45 Dose: 112 mcg Lisinopril (Zestril) 40 mg PO QDAY [facility] Last Admin: 12/04/16 09:17 Dose: 40 mg Magnesium Hydroxide (Milk Of Magnesia) 30 ml PO Q4H PRN PRN Reason: Constipation Ondansetron HCl (Zofran) 4 mg IV Q8H PRN PRN Reason: N/V unrelieved by Reglan Review of Systems All systems: negative (as per HPI.) Physical Examination - Physical Exam Narrative exam: General appearance: Alert in NAD, conversant Eyes: anicteric sclerae, moist conjunctivae; no lid-lag; PERRLA HENT: Atraumatic; oropharynx clear with moist mucous membranes and no mucosal ulcerations/no oral thrush; normal hard and soft palate. Normal external ears. Neck: Trachea midline; supple, no thyromegaly or lymphadenopathy Lungs: CTA, with normal respiratory effort and no intercostal retractions CV: RRR, no murmurs Abdomen: Soft, non-tender; no masses or hepatosplenomegaly Extremities: left leg with mild edema, erythema, tenderness and old scars no purulence Skin: Normal temperature, turgor and texture; no rash, ulcers or subcutaneous nodules Psych: Appropriate affect, alert and oriented to person, place and time. Neuro: alert and oriented x 3. Moving all extermities Lines: No CVL / PICC - Constitutional Vitals: Vital Signs Temp Pulse Resp BP Pulse Ox 97.5 F L 67 20 162/117 97 12/04/16 07:56 12/04/16 07:56 12/04/16 07:56 12/04/16 09:17 12/04/16 07:56 Temperature -Last 24 Hours Temperature 97.5 F Temperature 98.2 F Temperature 98.2 F Results - Labs CBC & Chem 7: 12/03/16 07:27 12/03/16 07:27 Assessment and Plan Assessment: 1) Leukocytosis: from leg cellulitis 2) Left leg cellultiis versus allergic reaction to dressings on top of recent left popliteal artery aneurysm complicated with compartment syndrome in August 2016 status post fasciotomy of the popliteal artery. August 2016 Wound cultures grew MRSA, group B Strep and Klebsiella. treated with doxycycline for 7 days -Art Ultrasound showing a patent left SFA popliteal bypass. -CT leg shows subcutaneous edema and left popliteal bypass appeared to be occluded. 3) Hypertension 4) COPD Plan: -obtain C-reactive protein (CRP) -continue vancomycin until D/C -leg elevation -upon discharge will do doxycycline 100 mg PO q 12h and ceftin 500 mg po q12h ( doxy alone does not cover Strep) total 10 days -f/u with vascular -OK to d/c from ID standpoint -contact isolation Thank you Dr De Leon for your consultation, will follow up with you. Rosy Barba MD Infectious Diseases Specialist [facility] M [phone] [id number] [phone]
--- NOTE | 2016-12-04 11:33 | Discharge Summary ---
Providers - Providers Date of Admission: 12/01/16 18:40 Attending physician: MARISSA ABBOTT MD 12/02/16 09:48 Consult to Physician [CONS] Routine Consulting Provider: LUCINA DANIEL Reason For Exam: cellulitis 12/03/16 08:00 Consult to Wound/ET Nurse [CONS] Routine Reason For Exam: wound eval Hospitalization Condition: Stable Hospital course: 61-year-old male with a history of hypertension, COPD, status post fasciotomy of the popliteal artery, hx of Left tibial artery occlusion, comes to the emergency room with complaints of left leg red, painful and swollen, symptoms started on Saturday. Swelling has worsened today and extending up to his groin Diffuse cellulitis of the left lower extremity/Sepsis * continue Vancomycin, ID consult pending * LLE venous doppler negative for DVT * Follow blood cultures, CT LLE, shows only superficial and subcutaneous cellulitis, no abscess The patient states he had a new type of bandage placed last , and by Saturday his leg and swollen and turned red. I suspect he had an allergic/ inflammatory response on top of cellulitis. Following the removal of the bandage his symptoms have improved. He was told to avoid the "blue" RTO type bandages Hypertension * continue home meds Status post fasciotomy of left leg for rupture popliteal artery * vascular consulted, appears to be healing well Chronic LLE clot has been off eliquis because it was not affordable (has medicare) -restart eliquis -will speak to to ensure it is covered by his insurance prior to dc Disposition: DC-01 TO HOME OR SELFCARE Time spent for discharge: 33 minutes Core Measure Documentation - Palliative Care Palliative Care/ Comfort Measures: Not Applicable - Core Measures Any of the following diagnoses?: none Exam - Physical Exam Narrative exam: General.: Appears well, no distress, nontoxic HEENT: Moist mucous membranes, extraocular muscles intact, no lymphadenopathy Neck: supple Cardiac: S1-S2 heard Lungs: clear to auscultation bilaterally Abdomen: soft , nontender, nondistended, bowel sounds positive Extremities: Left lower extremity erythema, edema and tenderness. There is erythema involving only the lower leg. Interval improvement Skin: Erythematous left lower extremity as described above. Scar on the left lower extremity consistent with fasciotomy Neurologic: no gross focal deficits Psych: appropriate behavior, appropriate mood, corporative, judgment intact - Constitutional Vitals: Temp Pulse Resp BP Pulse Ox 97.5 F L 67 20 162/117 97 12/04/16 07:56 12/04/16 07:56 12/04/16 07:56 12/04/16 09:17 12/04/16 07:56 Plan Follow up with: LUIS GARCIA [Other] - 3-5 Days Prescriptions: Apixaban [Eliquis] 5 mg PO BID #60 tablet Cefuroxime Axetil [Ceftin] 500 mg PO Q12H #14 ml Doxycycline [Vibramycin CAP] 100 mg PO Q12HR #14 capsule Oxycodone HCl/Acetaminophen [Percocet 10/325 mg] 1 each PO Q4HR PRN #10 tablet PRN Reason: Pain
[2016-12-04 17:10] VITALS: BP 152/120
== END 2016-12-04 16:55 | disposition home or self-care (01) | DRG 872 ==
LOC: ED 12:57 → 3A 18:40
PROVIDERS: ADMIT Internal Medicine; ATTEND Internal Medicine
DX: A41.9 Sepsis, unspecified organism (principal); L97.929 Non-pressure chronic ulcer of unspecified part of left lower leg with unspecified severity; L03.116 Cellulitis of left lower limb; I82.502 Chronic embolism and thrombosis of unspecified deep veins of left lower extremity; I11.0 Hypertensive heart disease with heart failure; I50.9 Heart failure, unspecified; M19.90 Unspecified osteoarthritis, unspecified site; J44.9 Chronic obstructive pulmonary disease, unspecified; M54.9 Dorsalgia, unspecified; G89.29 Other chronic pain; Z72.89 Other problems related to lifestyle; E11.51 Type 2 diabetes mellitus with diabetic peripheral angiopathy without gangrene; F17.200 Nicotine dependence, unspecified, uncomplicated; Z79.899 Other long term (current) drug therapy; Z82.49 Family history of ischemic heart disease and other diseases of the circulatory system; I25.10 Atherosclerotic heart disease of native coronary artery without angina pectoris
CPT/HCPCS: 36415; 71010; 80048; 80053; 81001; 82140; 82805; 85025; 85610; 86140; 87040; 87086; 93005; 93010; 96365; 96366; 99406; A9270-GY; J3370; Q9967

== ENCOUNTER 2016-12-06 10:54 | Outpatient (CLI) | payer MEDICARE ==
[2016-12-06] MEDS ORDERED: XYLOCAINE TOPICAL 4% TP ONE ×2 (11:18→14:31)
== END 2016-12-06 10:55 | disposition home or self-care (01) ==
LOC: WOUND 10:54
PROVIDERS: ATTEND Nurse Practitioner
DX: T81.89XD Other complications of procedures, not elsewhere classified, subsequent encounter (principal); I70.292 Other atherosclerosis of native arteries of extremities, left leg; I10 Essential (primary) hypertension; M79.A22 Nontraumatic compartment syndrome of left lower extremity; J44.9 Chronic obstructive pulmonary disease, unspecified; K21.9 Gastro-esophageal reflux disease without esophagitis; Z98.62 Peripheral vascular angioplasty status; Y83.8 Other surgical procedures as the cause of abnormal reaction of the patient, or of later complication, without mention of misadventure at the time of the procedure

== ENCOUNTER 2016-12-20 10:56 | Outpatient (CLI) | payer MEDICARE ==
[2016-12-20] MEDS ORDERED: XYLOCAINE TOPICAL 4% TP ONE (11:47)
== END 2016-12-20 10:57 | disposition home or self-care (01) ==
LOC: WOUND 10:56
PROVIDERS: ATTEND Nurse Practitioner
DX: T81.89XD Other complications of procedures, not elsewhere classified, subsequent encounter (principal); I10 Essential (primary) hypertension; J44.9 Chronic obstructive pulmonary disease, unspecified; K21.9 Gastro-esophageal reflux disease without esophagitis; Z87.891 Personal history of nicotine dependence; Y83.8 Other surgical procedures as the cause of abnormal reaction of the patient, or of later complication, without mention of misadventure at the time of the procedure

== ENCOUNTER 2017-01-24 10:43 | Outpatient (CLI) | payer MEDICARE | END 2017-01-24 10:44 | disposition home or self-care (01) | LOC: WOUND 10:43 | PROVIDERS: ATTEND Nurse Practitioner | DX: T81.89XD Other complications of procedures, not elsewhere classified, subsequent encounter (principal); I70.292 Other atherosclerosis of native arteries of extremities, left leg; J44.9 Chronic obstructive pulmonary disease, unspecified; I10 Essential (primary) hypertension; K21.9 Gastro-esophageal reflux disease without esophagitis; Z87.891 Personal history of nicotine dependence; Y83.8 Other surgical procedures as the cause of abnormal reaction of the patient, or of later complication, without mention of misadventure at the time of the procedure | CPT/HCPCS: 99213; G0463 ==